=== PATIENT | male | born 1960 | race Caucasian/White ===

== ENCOUNTER → 2018-01-01 | Outpatient (CLI) | payer BC ==
--- NOTE | 2018-01-01 19:03 | Diagnostic Imaging Report ---
INDICATION: Fell six weeks ago and landed on left hand, pain between the first and second metacarpals. FINDINGS: Three views of the left hand demonstrate no fracture or dislocation. Minimal degenerative changes are present. IMPRESSION: Negative left hand. Dictated by: Dictated on workstation # [id number]
== END ==
LOC: RAD 18:31
PROVIDERS: ATTEND Nurse Practitioner Family
DX: M79.642 Pain in left hand (principal); W19.XXXA Unspecified fall, initial encounter
CPT/HCPCS: 73130

== ENCOUNTER → 2018-03-16 | Outpatient (CLI) | payer BC ==
--- NOTE | 2018-03-16 18:16 | Diagnostic Imaging Report ---
EXAM: CHEST PA/LAT (2 VIEW) INDICATION: COUGH COMPARISON: None. FINDINGS: Normal heart size and central pulmonary vascularity. Bronchial wall thickening. No focal pulmonary opacity, pleural effusion or pneumothorax. No acute osseous findings. IMPRESSION: Bronchial wall thickening suggesting small airway inflammation. Remainder negative. Dictated by: Dictated on workstation # [id number]
== END ==
LOC: RAD 16:48
PROVIDERS: ATTEND Nurse Practitioner Family
DX: J98.4 Other disorders of lung (principal); R05 Cough
CPT/HCPCS: 71046

== ENCOUNTER → 2018-05-22 | Outpatient (CLI) | payer BC | LOC: CARD 11:49 | PROVIDERS: ATTEND Nurse Practitioner Family | DX: R01.1 Cardiac murmur, unspecified (principal); I34.0 Nonrheumatic mitral (valve) insufficiency | CPT/HCPCS: 93306 ==

== ENCOUNTER 2018-07-08 07:34 | Day surgery (SDC) | payer BC ==
[2018-07-08] VITALS (20 sets, daily range): BP systolic 112–165; BP diastolic 65–100
[~2018-07-08] VITALS: Ht 170.2 cm; Wt 76.7 kg
[2018-07-08] MEDS ORDERED: NS IV 1000 ML 1,000 ML ONE (07:49)
[2018-07-08] MEDS ORDERED: LIDOCAINE 2% VISCOUS 15 ML UDC ONE (07:49)
[2018-07-08 08:12] LABS: HEMOGLOBIN 14.9 G/DL (13.3-17.7); MEAN PLATELET VOLUME 10.3 FL (7.4-10.4); RED CELL DISTRIBUTION WIDTH 14.2 % (10.0-14.5)
--- NOTE | 2018-07-08 08:16 | Diagnostic Imaging Report ---
INDICATION: Pre-heart catheterization and transesophageal echo. Time of exam: 8:05 AM Correlation is made with prior study from 03/16/2018. The heart is enlarged. Lungs are clear. No infiltrate is seen. There is no failure. No effusion or pneumothorax is identified. IMPRESSION: Cardiomegaly. Study is otherwise unremarkable. Dictated by: Dictated on workstation # [id number]
[2018-07-08 08:21] LABS: INR 0.9 (0.8-1.4); PROTHROMBIN TIME PATIENT 11.9 SEC (12.2-14.7)
[2018-07-08] MEDS ORDERED: RT-ALBUINH IH (08:27)
[2018-07-08] MEDS ORDERED: ALB0.5V INH (08:27)
[2018-07-08] MEDS ORDERED: NS IV 1000 ML 1,000 ML IV SCH (08:30)
[2018-07-08 08:31] LABS: ALANINE AMINOTRANSFERASE 39 U/L (0-55); ALBUMIN 4.4 GM/DL (3.2-4.5); ALKALINE PHOSPHATASE 56 U/L (40-136); BUN/CREATININE RATIO 22; CALCIUM 9.5 MG/DL (8.5-10.1); CARBON DIOXIDE 29 MMOL/L (21-32); CHLORIDE 101 MMOL/L (98-107); CHOLESTEROL 234 MG/DL (< 200); CREATININE SERUM 0.87 MG/DL (0.60-1.30); GFR ESTIMATED > 60; GLUCOSE 100 MG/DL (70-105); HDL CHOLESTEROL 71 MG/DL (40-60); SODIUM 139 MMOL/L (135-145); TOTAL PROTEIN 7.1 GM/DL (6.4-8.2); TRIGLYCERIDES 76 MG/DL (<150); VLDL CHOLESTEROL 15 MG/DL (5-40)
[2018-07-08] MEDS ORDERED: MIDAZOLAM 5 MG/5 ML (VERSED) VIAL ONE (08:34)
[2018-07-08] MEDS ORDERED: fentaNYL INJECTION 100 MCG/2 ML AMP ONE (08:35)
[2018-07-08] MEDS ORDERED: fentaNYL INJECTION 100 MCG/2 ML AMP IV ONE (10:45)
[2018-07-08] MEDS ORDERED: MIDAZOLAM 5 MG/5 ML (VERSED) VIAL IV ONE (10:45)
[2018-07-08] MEDS ORDERED: LIDOCAINE 2% VISCOUS 15 ML UDC PO ONE (10:45)
--- OUTSIDE RECORDS SUMMARY | 2018-07-08 10:53 | XMS REPORT | CCD ---
Author Author Anisha Whitmore MD, [facility] Address [address] [place] [address] Phone Care Team Providers Care Heel Stiffener Name Role Phone PP Unavailable CCM Unavailable Summary Purpose Interface Exchange Insurance Providers Payer name Policy type / Coverage type Covered democrat ID Effective Begin Date Effective End Date Blue Cross [facility] Blue Cross/Blue [facility] [id number] 2017 Unknown Family history Mother Diagnosis Age At Onset Alcoholism Unknown Father Diagnosis Age At Onset Asthma Unknown Son Diagnosis Age At Onset Asthma Unknown Runs in the family Diagnosis Age At Onset Cancer Unknown Daughter Diagnosis Age At Onset Asthma Unknown Social History Social History Element Codes Description Effective Dates Marital status Unknown Anamaria Caballero 08/04/2017 Number of children Unknown 4 08/04/2017 Employment Unknown 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 Unknown Has never used illegal drugs 08/04/2017 Allergies, Adverse Reactions, Alerts Substance Reaction Codes Entered Date Inactivated Date Status NO KNOWN DRUG ALLERGIES Unknown 08/04/2017 No Inactive Date Active Past Medical History Illness Codes Condition Status Onset Date Resolved Date Acute bronchitis due to other specified organisms ICD-9: 466.0 ICD-10: J20.8 Active 06/25/2018 Unknown Periapical abscess without sinus ICD-9: 522.5 ICD-10: K04.7 Active 05/07/2018 Unknown Cough ICD-9: 786.2 ICD-10: R05 Active 03/02/2018 Unknown Pneumonia, unspecified organism ICD-9: 486 ICD-10: J18.9 Active 03/02/2018 Unknown Pain in left finger(s) ICD-9: 729.5 ICD-10: M79.645 Active 01/01/2018 Unknown Pain in left hand ICD- 9: 729.5 ICD-10: M79.642 Active 01/01/2018 Unknown Other fatigue ICD-9: 780.79 ICD-10: R53.83 Active 08/04/2017 Unknown Actinic keratosis ICD- 9: 702.0 ICD-10: L57.0 Active 08/04/2017 Unknown Cardiac murmur, unspecified ICD-9: 785.2 ICD-10: R01.1 Active 08/04/2017 Unknown Other hypoglycemia ICD -9: 251.1 ICD-10: E16.1 Active 08/04/2017 Unknown Other malaise ICD-9: 780.79 ICD-10: R53.81 Active 08/04/2017 Unknown Problems Condition Codes Effective Dates Condition Status Acute bronchitis due to other specified organisms ICD-9: 466.0 ICD-10: J20.8 06/25/2018 Active Periapical abscess without sinus ICD-9: 522.5 ICD-10: K04.7 05/07/2018 Active Cough ICD-9: 786.2 ICD-10: R05 03/02/2018 Active Pneumonia, unspecified organism ICD-9: 486 ICD-10: J18.9 03/02/2018 Active Pain in left finger(s) ICD-9: 729.5 ICD-10: M79.645 01/01/2018 Active Pain in left hand ICD- 9: 729.5 ICD-10: M79.642 01/01/2018 Active Other fatigue ICD-9: 780.79 ICD-10: R53.83 08/04/2017 Active Actinic keratosis ICD- 9: 702.0 ICD-10: L57.0 08/04/2017 Active Cardiac murmur, unspecified ICD-9: 785.2 ICD-10: R01.1 08/04/2017 Active Other hypoglycemia ICD -9: 251.1 ICD-10: E16.1 08/04/2017 Active Other malaise ICD-9: 780.79 ICD-10: R53.81 08/04/2017 Active Medications Medication Codes Instructions Start Date Stop Date Status Fill Instructions ProAir HFA 90 mcg/actuation aerosol inhaler RxNorm: 823741 1-2 Puff(s) INH Q4H as needed 06/26/2018 No Stop Date Active Zithromax Z-Jomar 250 mg tablet RxNorm: 358220 1 Tablet(s) PO UD 06/25/2018 06/29/2018 Inactive cefdinir 300 mg capsule RxNorm: 275049 1 Capsule(s) PO BID 07/01/2018 Active albuterol sulfate 2.5 mg/3 mL (0.083 %) solution for nebulization RxNorm: 911244 3 Milliliter(s) INH UD 06/25/2018 No Stop Date Active 4 times a day x 3 days, then 3 times a day x 3 days, then twice a day x 3 days, then as needed ceftriaxone 500 mg solution for injection RxNorm: 9990966 Inj 06/25/2018 06/25/2018 Inactive Kenalog 40 mg/mL suspension for injection RxNorm: 4410382 Milliliter(s) Inj 06/25/2018 06/25/2018 Inactive prednisone 10 mg tablet RxNorm: 762664 Tablet(s) PO UD 2018 No Stop Date Active 60,50,40,30,20,10 clindamycin HCl 300 mg capsule RxNorm: 159045 1 Capsule(s) PO TID 05/07/2018 05/16/2018 Inactive Levaquin 500 mg tablet RxNorm: 197070 1 Tablet(s) PO daily 03/201804/09/2018 Inactive ipratropium-albuterol 0.5 mg-3 mg(2.5 mg base)/3 mL nebulization soln RxNorm: 8744051 3 Milliliter(s) INH qid prn 03/16/2018 No Stop Date Active Kenalog 40 mg/mL suspension for injection RxNorm: 8384477 Milliliter(s) Inj 03/16/2018 03/16/2018 Inactive prednisone 10 mg tablet RxNorm: 186124 Tablet(s) PO UD 201806/23/2018 Inactive 60,60,50,50,40,40,30,30,20,20,10,10 Levaquin 500 mg tablet RxNorm: 936559 1 Tablet(s) PO daily 03/22/2018 Inactive ProAir HFA 90 mcg/actuation aerosol inhaler RxNorm: 795590 1-2 Puff(s) INH Q4H as needed 03/04/2018 06/25/2018 Inactive ceftriaxone 500 mg solution for injection RxNorm: 0558398 2 Milliliter(s) Inj 03/02/2018 03/02/2018 Inactive Kenalog 40 mg/mL suspension for injection RxNorm: 9609963 1.5 Milliliter(s) Inj 03/02/2018 03/02/2018 Inactive prednisone 20 mg tablet RxNorm: 638024 1 Tablet(s) PO BID 03/0203/06/2018 Inactive start tomorrow -1 q am and 1 q noon cefdinir 300 mg capsule RxNorm: 705539 1 Capsule(s) PO BID 03/08/2018 Inactive Zithromax Z-Jomar 250 mg tablet RxNorm: 570856 1 Tablet(s) PO UD 03/02/2018 03/06/2018 Inactive ipratropium-albuterol 0.5 mg-3 mg(2.5 mg base)/3 mL nebulization soln RxNorm: 9703159 3 Milliliter(s) INH qid prn 03/02/2018 03/15/2018 Inactive naproxen 500 mg tablet RxNorm: 255108 1 Tablet(s) PO BID 201701/05/2018 Inactive doxycycline hyclate 100 mg capsule RxNorm: 4262161 1 Capsule(s) PO BID 09/09/2017 09/22/2017 Inactive doxycycline hyclate 100 mg capsule RxNorm: 7809737 1 Capsule(s) PO BID 08/11/2017 08/14/2017 Inactive doxycycline hyclate 100 mg capsule RxNorm: 5147577 1 Capsule(s) PO BID 08/04/2017 08/10/2017 Inactive ProAir HFA 90 mcg/actuation aerosol inhaler RxNorm: 8881742 1-2 Puff(s) INH Q4H as needed No Start Date 03/03/2018 Inactive prednisone 10 mg tablet RxNorm: 872372 Tablet(s) PO No Start Date 03/15/2018 Inactive 60,60,50,50,40,40,30,30,20,20,10,10 Medication Administered Medication Codes Instructions Start Date Status Kenalog 40 mg/mL suspension for injection RxNorm: 6812845 Milliliter 06/25/2018 No longer Active ceftriaxone 500 mg solution for injection RxNorm: 8154612 06/25/2018 No longer Active Kenalog 40 mg/mL suspension for injection RxNorm: 5345513 Milliliter 03/16/2018 No longer Active Kenalog 40 mg/mL suspension for injection RxNorm: 4741304 1.5Milliliter 03/02/2018 No longer Active ceftriaxone 500 mg solution for injection RxNorm: 2402353 2Milliliter 03/02/2018 No longer Active Immunizations No Immunization data Assessments Condition Codes Effective Dates Acute bronchitis due to other specified organisms ICD-10: J20.8 ICD-9: 466.0 06/25/2018 Periapical abscess without sinus ICD-10: K04.7 ICD-9: 522.5 05/07/2018 Pneumonia, unspecified organism ICD-10: J18.9 ICD-9: 486 03/16/2018 Cough ICD-10: R05 ICD-9: 786.2 03/16/2018 Pain in left hand ICD-10: M79.642 ICD-9: 729.5 01/01/2018 Pain in left finger(s) ICD-10: M79.645 ICD-9: 729.5 01/01/2018 Other fatigue ICD-10: R53.83 ICD-9: 780.79 08/25/2017 Cardiac murmur, unspecified ICD-10: R01.1 ICD-9: 785.2 08/04/2017 Other malaise ICD-10: R53.81 ICD-9: 780.79 08/04/2017 Other hypoglycemia ICD-10: E16.1 ICD-9: 251.1 08/04/2017 Actinic keratosis ICD-10: L57.0 ICD-9: 702.0 08/04/2017 Reason For Visit Reason For Visit Effective Dates Notes sinus congestion 06/25/2018 oral pain 05/07/2018 cough 03/16/2018 cough 03/02/2018 thumb and hand pain 01/01/2018 fatigue 08/25/2017 fatigue 08/04/2017 Results Observation Observation Code Item Item Code Result Date Ehrlichia Chaffeensis Antibody Igm 171634 EHRLICHIA CHAFFEENSIS IGM < 1:16 08/08/2017 Ehrlichia Chaffeensis Antibody Igg 891016 EHRLICHIA CHAFFEENSIS IGG 1:256 08/08/2017 Stryker Spotted Fever Igg/Igm 846119 [facility] SPOTTED FEVER IGM EIA . 08/08/2017 Stryker Spotted Fever Igg/Igm 734155 RMSF, IGM 0.42 index 08/08/2017 Stryker Spotted Fever Igg/Igm 149026 [facility] SPOTTED FEVER IGG EIA FLEX . 08/08/2017 Stryker Spotted Fever Igg/Igm 481532 RMSF, IGG SCREEN-FLEX Negative 08/08/2017 Tsh Ord6 TSH (3rd IS) 3.72 uIU/mL 08/05/2017 Free T4 Rvh875 FREE T4 0.98 ng/dL 08/05/2017 Lymes Disease Total Antibodies With Western Blot Reflex [id number] B. BURGDORFERI, IGG/IGM 0.176 08/05/2017 Lymes Disease Total Antibodies With Western Blot Reflex [id number] 08/05/2017 %Hba1C Yja777 % HbA1c 90574-9 5.6 % 08/04/2017 %Hba1C Dlx804 Gluc Ave 114 mg/dL 08/04/2017 Comp Metabolic Lbu367 NA 136 mEq/L 08/04/2017 Comp Metabolic Kxz029 K 4.4 mEq/L 08/04/2017 Comp Metabolic Lyz279 CL 100 mEq/L 08/04/2017 Comp Metabolic Zru247 CO2 27.0 mEq/L 08/04/2017 Comp Metabolic Bjt711 ANION GAP 13 08/04/2017 Comp Metabolic Rae805 GLUCOSE 95 mg/dL 08/04/2017 Comp Metabolic Rtt722 Creat 0.8 mg/dL 08/04/2017 Comp Metabolic Oyu219 eGFR 105 ml/min/1.73m2 08/04/2017 Comp Metabolic Wif740 BUN 28 mg/dL 08/04/2017 Comp Metabolic Kcd806 B/C Ratio 35.0 Ratio 08/04/2017 Comp Metabolic Oqp440 CALCIUM 8.7 mg/dL 08/04/2017 Comp Metabolic Kyq236 ALK PHOS 61 U/L 08/04/2017 Comp Metabolic Gzj843 AST(SGOT) 21 U/L 08/04/2017 Comp Metabolic Oyv787 ALT(SGPT) 18 U/L 08/04/2017 Comp Metabolic Xmr029 BILI T 0.7 mg/dL 08/04/2017 Comp Metabolic Ljg081 ALBUMIN 4.5 g/dL 08/04/2017 Comp Metabolic Udi309 TPRO 6.7 g/dL 08/04/2017 Comp Metabolic Svw483 GLOB 2.3 g/dL 08/04/2017 Comp Metabolic Snu114 A/G Ratio 2.0 Ratio 08/04/2017 Comp Metabolic Vsz402 Osmo 277 mOsmo 08/04/2017 Cbc With Differential Ord2 WBC 7.02 K/ul 08/04/2017 Cbc With Differential Ord2 RBC 5.12 M/ul 08/04/2017 Cbc With Differential Ord2 HGB 15.9 g/dl 08/04/2017 Cbc With Differential Ord2 HCT 46.0 % 08/04/2017 Cbc With Differential Ord2 Neut% 67.2 % 08/04/2017 Cbc With Differential Ord2 MCV 89.8 fl 08/04/2017 Cbc With Differential Ord2 Lymph% 21.2 % 08/04/2017 Cbc With Differential Ord2 MCH 31.1 pg 08/04/2017 Cbc With Differential Ord2 Sullivan% 8.7 % 08/04/2017 Cbc With Differential Ord2 MCHC 34.6 pg 08/04/2017 Cbc With Differential Ord2 Eos% 2.6 % 08/04/2017 Cbc With Differential Ord2 PLT 231 K/ul 08/04/2017 Cbc With Differential Ord2 Baso% 0.3 % 08/04/2017 Cbc With Differential Ord2 RDW 13.3 % 08/04/2017 Cbc With Differential Ord2 Neut ABS# 4.72 K/ul 08/04/2017 Cbc With Differential Ord2 Lymph ABS# 1.49 K/ul 08/04/2017 Cbc With Differential Ord2 Sullivan ABS# 0.6 K/ul 08/04/2017 Cbc With Differential Ord2 Eos ABS# 0.2 K/ul 08/04/2017 Cbc With Differential Ord2 Baso ABS# 0.0 K/ul 08/04/2017 Lipid Ord30 CHOL 209 mg/dL 08/04/2017 Lipid Ord30 HDL 56.0 mg/dl 08/04/2017 Lipid Ord30 TRIG 98 mg/dL 08/04/2017 Lipid Ord30 LDL 133 mg/dL 08/04/2017 Lipid Ord30 C/HDL 3.7 Ratio 08/04/2017 Review of Systems System Result Effective Dates Constitutional recent illness 06/25/2018 Constitutional chills 06/25/2018 Constitutional fever 06/25/2018 Eyes No eye erythema 06/25/2018 Ears/Nose/Throat/Neck nasal allergies Ears/Nose/Throat/Neck nasal discharge Ears/Nose/Throat/Neck postnasal drip Ears/Nose/Throat/Neck sinus congestion Cardiovascular No chest pain/pressure Respiratory productive sputum 06/25/2018 Respiratory cough 06/25/2018 Respiratory wheezing 06/25/2018 Gastrointestinal No abdominal pain 2018 Musculoskeletal No joint complaint 2018 Dermatologic No rash 06/25/2018 Neurologic No alteration of consciousness 06/25/2018 Neurologic No mental status change 2018 Constitutional No recent illness 2018 Constitutional No chills 05/07/2018 Constitutional No diaphoresis 05/07/2018 Constitutional No fever 05/07/2018 Eyes No eye erythema 05/07/2018 Ears/Nose/Throat/Neck No nasal discharge 05/07/2018 Cardiovascular No chest pain/pressure 08/2018 Cardiovascular No dyspnea 05/07/2018 Respiratory No cough 05/07/2018 Ears/Nose/Throat/Neck dental pain 2018 Gastrointestinal No abdominal pain 2018 Neurologic No alteration of consciousness 05/07/2018 Neurologic No mental status change 2018 Constitutional recent illness 03/16/2018 Constitutional No night sweats 2018 Constitutional No fever 03/16/2018 Eyes No eye discharge 03/16/2018 Eyes No eye erythema 03/16/2018 Cardiovascular No chest pain/pressure Cardiovascular No edema 03/16/2018 Respiratory productive sputum 03/16/2018 Respiratory chest congestion 03/16/2018 Respiratory cough 03/16/2018 Gastrointestinal No abdominal pain 2018 Gastrointestinal No constipation 2018 Gastrointestinal No diarrhea 03/16/2018 Gastrointestinal No vomiting 03/16/2018 Musculoskeletal No joint complaint 2018 Dermatologic No rash 03/16/2018 Neurologic No alteration of consciousness 03/16/2018 Constitutional fatigue 03/16/2018 Constitutional No chills 03/16/2018 Ears/Nose/Throat/Neck nasal discharge Ears/Nose/Throat/Neck nasal allergies Ears/Nose/Throat/Neck postnasal drip Ears/Nose/Throat/Neck No sinus congestion 03/16/2018 Respiratory No dyspnea 03/16/2018 Respiratory dyspnea on exertion 2018 Neurologic No mental status change 2018 Constitutional recent illness 03/02/2018 Constitutional anorexia 03/02/2018 Constitutional No night sweats 2017 Constitutional diaphoresis 03/02/2018 Constitutional fatigue 03/02/2018 Constitutional No fever 03/02/2018 Constitutional insomnia 03/02/2018 Constitutional No malaise 03/02/2018 Constitutional No weight loss 03/02/2018 Constitutional No weight gain 03/02/2018 Eyes No eye erythema 03/02/2018 Eyes No eye discharge 03/02/2018 Ears/Nose/Throat/Neck No dizziness 2017 Ears/Nose/Throat/Neck headache 2017 Ears/Nose/Throat/Neck nasal discharge Ears/Nose/Throat/Neck No otalgia 2017 Ears/Nose/Throat/Neck sore throat 2017 Cardiovascular No chest pain/pressure Cardiovascular No edema 03/02/2018 Respiratory productive sputum 03/02/2018 Respiratory chest congestion 03/02/2018 Respiratory cough 03/02/2018 Gastrointestinal No vomiting 03/02/2018 Gastrointestinal No abdominal pain 2017 Gastrointestinal No constipation 2017 Gastrointestinal No diarrhea 03/02/2018 Genitourinary/Nephrology No dysuria 03/02 Musculoskeletal No joint complaint 2017 Dermatologic No rash 03/02/2018 Neurologic No alteration of consciousness 03/02/2018 Constitutional No recent illness 2017 Constitutional No chills 01/01/2018 Constitutional No fever 01/01/2018 Eyes No eye erythema 01/01/2018 Ears/Nose/Throat/Neck No nasal discharge 01/01/2018 Cardiovascular No chest pain/pressure 03/2017 Cardiovascular No dyspnea 01/01/2018 Respiratory No cough 01/01/2018 Respiratory No dyspnea 01/01/2018 Musculoskeletal joint complaint 2017 Neurologic No alteration of consciousness 01/01/2018 Neurologic No mental status change 2017 Constitutional recent illness 08/25/2017 Constitutional No chills 08/25/2017 Constitutional No diaphoresis 08/25/2017 Constitutional No fever 08/25/2017 Eyes No eye erythema 08/25/2017 Ears/Nose/Throat/Neck No nasal discharge 08/25/2017 Cardiovascular No chest pain/pressure Cardiovascular No dyspnea 08/25/2017 Respiratory No cough 08/25/2017 Respiratory No chest congestion 2017 Gastrointestinal No abdominal pain 2017 Musculoskeletal No joint complaint 2017 Dermatologic No rash 08/25/2017 Neurologic No alteration of consciousness 08/25/2017 Neurologic No mental status change 2017 Constitutional No recent illness 2017 Constitutional No chills 08/04/2017 Constitutional No diaphoresis 08/04/2017 Constitutional No fever 08/04/2017 Constitutional fatigue 08/04/2017 Constitutional malaise 08/04/2017 Eyes No eye erythema 08/04/2017 Ears/Nose/Throat/Neck No nasal discharge 08/04/2017 Ears/Nose/Throat/Neck No nasal allergies 08/04/2017 Cardiovascular No chest pain/pressure 06/2017 Cardiovascular No dyspnea 08/04/2017 Respiratory No cough 08/04/2017 Respiratory No chest congestion 2017 Gastrointestinal No abdominal pain 2017 Gastrointestinal No constipation 2017 Gastrointestinal No diarrhea 08/04/2017 Gastrointestinal No vomiting 08/04/2017 Gastrointestinal No nausea 08/04/2017 Gastrointestinal No melena 08/04/2017 Gastrointestinal No hematochezia 2017 Musculoskeletal No joint complaint 2017 Dermatologic actinic keratosis 2017 Neurologic No alteration of consciousness 08/04/2017 Neurologic No mental status change 2017 Physical Exam Exam Name System Name Item Name Status Result Effective Dates Notes Full Exam - General 1994 Constitutional general appearance Overall: well developed 06/25/2018 None Full Exam - General 1994 Constitutional general appearance Overall: in no acute distress 06/25/2018 None Full Exam - General 1994 Constitutional general appearance Overall: well nourished 06/25/2018 None Full Exam - General 1994 Eyes conjunctiva /eyelids Overall: conjunctiva clear 06/25/2018 None Full Exam - General 1994 Eyes conjunctiva /eyelids Overall: eyelids normal 06/25/2018 None Full Exam - General 1994 Ears/Nose/Throat otoscopic exam Overall: external auditory canals clear 06/25/2018 None Full Exam - General 1994 Ears/Nose/Throat otoscopic exam Tympanic membrane: air- fluid level 06/25/2018 None Full Exam - General 1994 Ears/Nose/Throat lips/teeth/gingiva Overall: benign lips 06/25/2018 None Full Exam - General 1994 Ears/Nose/Throat oral cavity/pharynx/larynx Overall: oral mucosa clear 06/25/2018 None Full Exam - General 1995 Ears/Nose/Throat oral cavity/pharynx/larynx Posterior Pharynx: clear post nasal drainage 06/25/2018 None Full Exam - General 1994 Respiratory auscultation Diffuse: diminished 06/25/2018 None Full Exam - General 1994 Respiratory auscultation Lower lung field: expiratory wheezes 06/25/2018 None Full Exam - General 1994 Respiratory respiratory effort/rhythm Overall: no retractions 06/25/2018 None Full Exam - General 1994 Respiratory respiratory effort/rhythm Overall: normal rate 06/25/2018 None Full Exam - General 1994 Cardiovascular auscultation of heart Overall: regular rate 06/25/2018 None Full Exam - General 1994 Lymphatic neck nodes Overall: anterior cervical chain benign 06/25/2018 None Full Exam - General 1994 Lymphatic neck nodes Overall: posterior cervical chain benign 06/25/2018 None Full Exam - General 1994 Integument inspection of skin Overall: few scattered moles, no gross abnormalities 06/25/2018 None Full Exam - General 1994 Neurologic cranial nerves Overall: crainial nerves 2 - 12 grossly intact 06/25/2018 None Full Exam - General 1994 Psychiatric orientation/consciousness Overall: oriented to person, place and time 06/25/2018 None Full Exam - General 1994 Psychiatric mood and affect Overall: normal mood and affect 06/25/2018 None Full Exam - General 1994 Cardiovascular auscultation of heart Murmur: previously known murmur unchanged 06/25/2018 None Full Exam - General 1994 Constitutional general appearance Overall: well developed 05/07/2018 None Full Exam - General 1994 Constitutional general appearance Overall: in no acute distress 05/07/2018 None Full Exam - General 1994 Constitutional general appearance Overall: well nourished 05/07/2018 None Full Exam - General 1994 Eyes conjunctiva /eyelids Overall: eyelids normal 05/07/2018 None Full Exam - General 1994 Eyes conjunctiva /eyelids Overall: cornea clear 05/07/2018 None Full Exam - General 1994 Eyes conjunctiva /eyelids Overall: conjunctiva clear 05/07/2018 None Full Exam - General 1994 Ears/Nose/Throat lips/teeth/gingiva Overall: benign lips 05/07/2018 None Full Exam - General 1994 Ears/Nose/Throat lips/teeth/gingiva Teeth: dental caries 05/07/2018 None Full Exam - General 1994 Ears/Nose/Throat oral cavity/pharynx/larynx Overall: oral mucosa clear 05/07/2018 None Full Exam - General 1995 Respiratory respiratory effort/rhythm Overall: normal rate 05/07/2018 None Full Exam - General 1995 Respiratory respiratory effort/rhythm Overall: no retractions 05/07/2018 None Full Exam - General 1995 Respiratory auscultation Overall: breath sounds clear bilaterally 05/07/2018 None Full Exam - General 1995 Cardiovascular auscultation of heart Overall: regular rate 05/07/2018 None Full Exam - General 1994 Cardiovascular auscultation of heart Systolic murmur: holosystolic 05/07/2018 None Full Exam - General 1994 Cardiovascular auscultation of heart Systolic murmur grade: III/ 05/07/2018 None Full Exam - General 1994 Musculoskeletal head and neck Overall: head atraumatic 05/07/2018 None Full Exam - General 1994 Musculoskeletal gait and station Overall: normal station 05/07/2018 None Full Exam - General 1994 Musculoskeletal gait and station Overall: normal gait 05/07/2018 None Full Exam - General 1994 Neurologic cranial nerves Overall: crainial nerves 2 - 12 grossly intact 05/07/2018 None Full Exam - General 1994 Psychiatric orientation/consciousness Overall: oriented to person, place and time 05/07/2018 None Full Exam - General 1994 Psychiatric mood and affect Overall: normal mood and affect 05/07/2018 None Full Exam - General 1994 Psychiatric appearance Overall: well-groomed, good eye contact 05/07/2018 None Full Exam - General 1994 Constitutional general appearance Overall: well developed 03/16/2018 None Full Exam - General 1994 Constitutional general appearance Overall: in no acute distress 03/16/2018 None Full Exam - General 1994 Constitutional general appearance Overall: well nourished 03/16/2018 None Full Exam - General 1994 Eyes conjunctiva /eyelids Overall: conjunctiva clear 03/16/2018 None Full Exam - General 1994 Eyes conjunctiva /eyelids Overall: cornea clear 03/16/2018 None Full Exam - General 1994 Eyes conjunctiva /eyelids Overall: eyelids normal 03/16/2018 None Full Exam - General 1994 Eyes pupils and irises Overall: pupils equal, round, reactive to light and accomodation 03/16/2018 None Full Exam - General 1994 Ears/Nose/Throat otoscopic exam Overall: external auditory canals clear 03/16/2018 None Full Exam - General 1994 Ears/Nose/Throat otoscopic exam Overall: tympanic membranes clear 03/16/2018 None Full Exam - General 1995 Ears/Nose/Throat lips/teeth/gingiva Overall: benign lips 03/16/2018 None Full Exam - General 1995 Ears/Nose/Throat oral cavity/pharynx/larynx Overall: oral mucosa clear 03/16/2018 None Full Exam - General 1995 Ears/Nose/Throat oral cavity/pharynx/larynx Overall: oropharyngeal mucosa clear 03/16/2018 None Full Exam - Cardiology Respiratory auscultation Diffuse: expiratory wheezes 03/16/2018 None Full Exam - General 1994 Respiratory respiratory effort/rhythm Overall: no retractions 03/16/2018 None Full Exam - General 1994 Respiratory respiratory effort/rhythm Overall: normal rate 03/16/2018 None Full Exam - General 1994 Cardiovascular auscultation of heart Overall: regular rate 03/16/2018 None Full Exam - General 1994 Cardiovascular auscultation of heart Overall: normal heart sounds 03/16/2018 None Full Exam - General 1994 Cardiovascular auscultation of heart Systolic murmur: holosystolic 03/16/2018 None Full Exam - General 1994 Cardiovascular auscultation of heart Systolic murmur grade: III/ 03/16/2018 None Full Exam - General 1994 Musculoskeletal gait and station Overall: normal gait 03/16/2018 None Full Exam - General 1994 Musculoskeletal gait and station Overall: normal station 03/16/2018 None Full Exam - General 1994 Musculoskeletal head and neck Overall: head atraumatic 03/16/2018 None Full Exam - General 1994 Neurologic cranial nerves Overall: crainial nerves 2 - 12 grossly intact 03/16/2018 None Full Exam - General 1994 Psychiatric orientation/consciousness Overall: oriented to person, place and time 03/16/2018 None Full Exam - General 1994 Psychiatric mood and affect Overall: normal mood and affect 03/16/2018 None Full Exam - General 1994 Psychiatric appearance Overall: well-groomed, good eye contact 03/16/2018 None Full Exam - General 1994 Constitutional general appearance Overall: well developed 03/02/2018 None Full Exam - General 1994 Constitutional general appearance Overall: in no acute distress 03/02/2018 None Full Exam - General 1994 Constitutional general appearance Overall: well nourished 03/02/2018 None Full Exam - General 1994 Eyes conjunctiva /eyelids Overall: conjunctiva clear 03/02/2018 None Full Exam - General 1994 Eyes conjunctiva /eyelids Overall: cornea clear 03/02/2018 None Full Exam - General 1994 Eyes conjunctiva /eyelids Overall: eyelids normal 03/02/2018 None Full Exam - General 1994 Eyes pupils and irises Overall: pupils equal, round, reactive to light and accomodation 03/02/2018 None Full Exam - General 1994 Ears/Nose/Throat otoscopic exam Overall: external auditory canals clear 03/02/2018 None Full Exam - General 1994 Ears/Nose/Throat otoscopic exam Overall: tympanic membranes clear 03/02/2018 None Full Exam - General 1994 Ears/Nose/Throat lips/teeth/gingiva Overall: benign lips 03/02/2018 None Full Exam - General 1994 Ears/Nose/Throat oral cavity/pharynx/larynx Overall: oral mucosa clear 03/02/2018 None Full Exam - General 1994 Ears/Nose/Throat oral cavity/pharynx/larynx Overall: oropharyngeal mucosa clear 03/02/2018 None Full Exam - General 1994 Respiratory respiratory effort/rhythm Overall: no retractions 03/02/2018 None Full Exam - General 1994 Respiratory respiratory effort/rhythm Overall: normal rate 03/02/2018 None Full Exam - General 1994 Cardiovascular auscultation of heart Overall: regular rate 03/02/2018 None Full Exam - General 1994 Cardiovascular auscultation of heart Overall: normal heart sounds 03/02/2018 None Full Exam - General 1994 Cardiovascular auscultation of heart Systolic murmur: holosystolic 03/02/2018 None Full Exam - General 1994 Cardiovascular auscultation of heart Systolic murmur grade: III/ 03/02/2018 None Full Exam - General 1994 Abdomen abdominal exam Overall: no tenderness 03/02/2018 None Full Exam - General 1994 Abdomen abdominal exam Overall: normal bowel sounds 03/02/2018 None Full Exam - General 1994 Musculoskeletal gait and station Overall: normal gait 03/02/2018 None Full Exam - General 1994 Musculoskeletal gait and station Overall: normal station 03/02/2018 None Full Exam - General 1994 Musculoskeletal head and neck Overall: head atraumatic 03/02/2018 None Full Exam - General 1994 Neurologic cranial nerves Overall: crainial nerves 2 - 12 grossly intact 03/02/2018 None Full Exam - General 1994 Psychiatric orientation/consciousness Overall: oriented to person, place and time 03/02/2018 None Full Exam - General 1994 Psychiatric mood and affect Overall: normal mood and affect 03/02/2018 None Full Exam - General 1994 Psychiatric appearance Overall: well-groomed, good eye contact 03/02/2018 None Full Exam - Cardiology Respiratory auscultation Diffuse: rhonchi 03/02/2018 None Full Exam - Cardiology Respiratory auscultation Diffuse: expiratory wheezes 03/02/2018 None Full Exam - Orthopedics Constitutional general appearance Overall: well nourished 01/01/2018 None Full Exam - Orthopedics Constitutional general appearance Overall: well developed 01/01/2018 None Full Exam - Orthopedics Constitutional general appearance Overall: in no acute distress 01/01/2018 None Full Exam - Orthopedics Eyes conjunctiva/ eyelids Overall: conjunctiva clear 01/01/2018 None Full Exam - Orthopedics Eyes conjunctiva/ eyelids Overall: eyelids normal 01/01/2018 None Full Exam - Orthopedics Ears/Nose/Throat lips/teeth/gingiva Overall: benign lips 01/01/2018 None Full Exam - Orthopedics Ears/Nose/Throat oral cavity/pharynx/larynx Overall: oral mucosa clear 01/01/2018 None Full Exam - Orthopedics Respiratory respiratory effort/rhythm Overall: no retractions 01/01/2018 None Full Exam - Orthopedics Respiratory respiratory effort/rhythm Overall: normal rate 01/01/2018 None Full Exam - Orthopedics Psychiatric orientation/consciousness Overall: oriented to person, place and time 01/01/2018 None Full Exam - Orthopedics Psychiatric mood and affect Overall: normal mood and affect 01/01/2018 None Full Exam - Orthopedics Psychiatric appearance Overall: well-groomed, good eye contact 01/01/2018 None Full Exam - Orthopedics MS: left upper extremity insp & palp - LUE Thumb: normal appearance 01/01/2018 None Full Exam - Orthopedics MS: left upper extremity insp & palp - LUE Thumb: tenderness 01/01/2018 None Full Exam - Orthopedics MS: left upper extremity range of motion - LUE Thumb: pain with flexion at the MCP joint 01/01/2018 None Full Exam - Orthopedics MS: left upper extremity range of motion - LUE Thumb: pain with extension at the MCP joint 01/01/2018 None Full Exam - General 1994 Constitutional general appearance Overall: well developed 08/25/2017 None Full Exam - General 1994 Constitutional general appearance Overall: in no acute distress 08/25/2017 None Full Exam - General 1994 Constitutional general appearance Overall: well nourished 08/25/2017 None Full Exam - General 1994 Eyes conjunctiva /eyelids Overall: conjunctiva clear 08/25/2017 None Full Exam - General 1994 Eyes conjunctiva /eyelids Overall: cornea clear 08/25/2017 None Full Exam - General 1994 Eyes conjunctiva /eyelids Overall: eyelids normal 08/25/2017 None Full Exam - General 1994 Ears/Nose/Throat oral cavity/pharynx/larynx Overall: oral mucosa clear 08/25/2017 None Full Exam - General 1994 Ears/Nose/Throat lips/teeth/gingiva Overall: benign lips 08/25/2017 None Full Exam - General 1994 Respiratory auscultation Overall: breath sounds clear bilaterally 08/25/2017 None Full Exam - General 1994 Respiratory respiratory effort/rhythm Overall: normal rate 08/25/2017 None Full Exam - General 1994 Respiratory respiratory effort/rhythm Overall: no retractions 08/25/2017 None Full Exam - General 1994 Cardiovascular auscultation of heart Overall: regular rate 08/25/2017 None Full Exam - General 1994 Cardiovascular auscultation of heart Overall: normal heart sounds 08/25/2017 None Full Exam - General 1994 Cardiovascular auscultation of heart Systolic murmur: holosystolic 08/25/2017 None Full Exam - General 1994 Cardiovascular auscultation of heart Systolic murmur grade: III/ 08/25/2017 None Full Exam - General 1994 Musculoskeletal head and neck Overall: head atraumatic 08/25/2017 None Full Exam - General 1994 Musculoskeletal gait and station Overall: normal station 08/25/2017 None Full Exam - General 1994 Musculoskeletal gait and station Overall: normal gait 08/25/2017 None Full Exam - General 1994 Neurologic cranial nerves Overall: crainial nerves 2 - 12 grossly intact 08/25/2017 None Full Exam - General 1994 Psychiatric orientation/consciousness Overall: oriented to person, place and time 08/25/2017 None Full Exam - General 1994 Psychiatric mood and affect Overall: normal mood and affect 08/25/2017 None Full Exam - General 1994 Constitutional general appearance Overall: well developed 08/04/2017 None Full Exam - General 1994 Constitutional general appearance Overall: in no acute distress 08/04/2017 None Full Exam - General 1994 Constitutional general appearance Overall: well nourished 08/04/2017 None Full Exam - General 1994 Eyes conjunctiva /eyelids Overall: conjunctiva clear 08/04/2017 None Full Exam - General 1994 Eyes conjunctiva /eyelids Overall: cornea clear 08/04/2017 None Full Exam - General 1994 Eyes conjunctiva /eyelids Overall: eyelids normal 08/04/2017 None Full Exam - General 1994 Eyes pupils and irises Overall: pupils equal, round, reactive to light and accomodation 08/04/2017 None Full Exam - General 1994 Ears/Nose/Throat otoscopic exam Overall: tympanic membranes clear 08/04/2017 None Full Exam - General 1994 Ears/Nose/Throat otoscopic exam Overall: external auditory canals clear 08/04/2017 None Full Exam - General 1994 Ears/Nose/Throat lips/teeth/gingiva Overall: benign lips 08/04/2017 None Full Exam - General 1994 Ears/Nose/Throat oral cavity/pharynx/larynx Overall: oral mucosa clear 08/04/2017 None Full Exam - General 1994 Ears/Nose/Throat oral cavity/pharynx/larynx Overall: oropharyngeal mucosa clear 08/04/2017 None Full Exam - General 1994 Respiratory respiratory effort/rhythm Overall: no retractions 08/04/2017 None Full Exam - General 1994 Respiratory respiratory effort/rhythm Overall: normal rate 08/04/2017 None Full Exam - General 1994 Respiratory auscultation Overall: breath sounds clear bilaterally 08/04/2017 None Full Exam - General 1994 Cardiovascular auscultation of heart Overall: regular rate 08/04/2017 None Full Exam - General 1994 Cardiovascular auscultation of heart Overall: normal heart sounds 08/04/2017 None Full Exam - General 1994 Cardiovascular auscultation of heart Systolic murmur: holosystolic 08/04/2017 None Full Exam - General 1994 Cardiovascular auscultation of heart Systolic murmur grade: III/ 08/04/2017 None Full Exam - General 1994 Abdomen abdominal exam Overall: normal bowel sounds 08/04/2017 None Full Exam - General 1994 Abdomen abdominal exam Overall: no tenderness 08/04/2017 None Full Exam - General 1994 Musculoskeletal head and neck Overall: head atraumatic 08/04/2017 None Full Exam - General 1994 Musculoskeletal gait and station Overall: normal gait 08/04/2017 None Full Exam - General 1994 Musculoskeletal gait and station Overall: normal station 08/04/2017 None Full Exam - General 1994 Integument inspection of skin Location: face 08/04/2017 right cheek - [place] Full Exam - General 1994 Neurologic cranial nerves Overall: crainial nerves 2 - 12 grossly intact 08/04/2017 None Full Exam - General 1994 Psychiatric orientation/consciousness Overall: oriented to person, place and time 08/04/2017 None Full Exam - General 1994 Psychiatric mood and affect Overall: normal mood and affect 08/04/2017 None Full Exam - General 1994 Psychiatric appearance Overall: well-groomed, good eye contact 08/04/2017 None Procedures Procedure Codes Date TRIAMCINOLONE ACET INJ NOS CPT-4: J3301 06/25/2018 ROCEPHIN, PER 250 MG CPT-4: J0696 06/25/2018 TRIAMCINOLONE ACET INJ NOS CPT-4: J3301 03/16/2018 TRIAMCINOLONE ACET INJ NOS CPT-4: J3301 03/02/2018 ROCEPHIN, PER 250 MG CPT-4: J0696 03/02/2018 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 CPT-4: 03127 08/04/2017 Vital Signs Date Vital 06/25/2018 Blood Pressure 1: 134/60 Code : 8480-6 BMI: 26.6 Code : 21793-7 Heart Rate 1 : 80 bpm Height: 5'7" SpO2: 95% Temperature: 37.2 (C) / 99.0 (F) Weight: 170 lbs 05/07/2018 Blood Pressure 1: 144/76 Code : 8480-6 BMI: 26.9 Code : 77866-4 Heart Rate 1 : 77 bpm Height: 5'7" SpO2: 98% Weight: 172 lbs 03/16/2018 Blood Pressure 1: 122/68 Code : 8480-6 BMI: 26.6 Code : 33547-4 Heart Rate 1 : 88 bpm Height: 5'7" SpO2: 96% Weight: 170 lbs 03/02/2018 Blood Pressure 1: 140/80 Code : 8480-6 BMI: 26.5 Code : 25426-7 Heart Rate 1 : 87 bpm Height: 5'7" SpO2: 95% Temperature: 36.7 (C) / 98.1 (F) Weight: 169 lbs 01/01/2018 Blood Pressure 1: 134/66 Code : 8480-6 BMI: 26.8 Code : 32571-7 Heart Rate 1 : 65 bpm Height: 5'7" SpO2: 99% Weight: 171 lbs 08/25/2017 Blood Pressure 1: 136/72 Code : 8480-6 BMI: 27.4 Code : 76485-8 Heart Rate 1 : 70 bpm Height: 5'7" SpO2: 96% Weight: 175 lbs 08/04/2017 Blood Pressure 1: 130/78 Code : 8480-6 BMI: 27.6 Code : 77332-2 Heart Rate 1 : 65 bpm Height: 5'7" SpO2: 97% Weight: 176 lbs Functional Status No Functional Status data History of Present Illness Symptom Name Status Result Effective Date Notes Location maxillary sinuses 06/25/2018 None Quality acute 2018 None Quality acute 2018 None Location on the right 05/07/2018 None Quality aching 2018 None Quality constant 08/2018 None Quality sharp 2018 None Onset and Resolution sudden in onset 05/07/2018 None Onset of Symptom 1 weeks ago 05/07/2018 None Frequency of Episodes daily 05/07/2018 None Quality acute 2018 None Quality intermittent 03/16/2018 None Quality productive None Onset and Resolution ongoing 03/16/2018 None Onset of Symptom 3 weeks ago 03/16/2018 None Limitation on Activities moderately limits activities 03/16/2018 None Frequency of Episodes increasing 03/16/2018 None Triggers no known associated factors 03/16/2018 None Alleviating Factors inhaled medications 03/16/2018 None Pertinent Findings Denies chills 03/16/2018 None Pertinent Findings dyspnea 03/16/2018 None Pertinent Findings Denies fever 03/16/2018 None Pertinent Findings Denies nasal congestion 03/16/2018 None Pertinent Findings Denies post nasal drip 03/16/2018 None Pertinent Findings sputum production 03/16/2018 (green) Quality constant None Onset and Resolution ongoing 03/16/2018 None Quality acute 2017 None Quality intermittent 03/02/2018 None Onset and Resolution ongoing 03/02/2018 None Onset of Symptom 3 weeks ago 03/02/2018 None Quality productive None Pertinent Findings sputum production 03/02/2018 (green) Pertinent Findings Denies chills 03/02/2018 None Pertinent Findings Denies fever 03/02/2018 None Pertinent Findings dyspnea 03/02/2018 None Pertinent Findings Denies nasal congestion 03/02/2018 None Pertinent Findings Denies post nasal drip 03/02/2018 None Limitation on Activities moderately limits activities 03/02/2018 None Frequency of Episodes increasing 03/02/2018 None Triggers no known associated factors 03/02/2018 None Alleviating Factors inhaled medications 03/02/2018 None thumb and hand pain Alleviating Factors finger flexion 01/01/2018 None thumb and hand pain Exacerbating Factors activity 01/01/2018 None thumb and hand pain Location around the right thumbnail 01/01/2018 None thumb and hand pain Onset of Symptom 1 months ago 01/01/2018 None thumb and hand pain Pertinent Findings pain with movement 01/01/2018 None thumb and hand pain Pertinent Findings stiffness 01/01/2018 None fatigue Limitation on Activities does not limit activities 08/25/2017 None fatigue Quality improving 08/25/2017 None fatigue Pertinent Findings Denies cough 08/25/2017 None fatigue Limitation on Activities moderately limits activities 08/04/2017 None fatigue Onset of Symptom 3. months ago 08/04/2017 None fatigue Frequency of Episodes daily 08/04/2017 None Advance Directives No Advance Directive data Encounters Encounter Performer Location Codes Date [id number] EST. PATIENT, LEVEL III Diagnosis: Acute bronchitis due to other specified organisms[ICD10: J20.8] Anisha Ortega MD, [facility] CPT-4: 32522 06/25/2018 09097 EST. PATIENT, LEVEL IV Diagnosis: Periapical abscess without sinus[ICD10: K04.7] Anisha Ortega MD, [facility] CPT-4: 75143 05/07/2018 30448 EST. PATIENT, LEVEL IV Diagnosis: Cough[ICD10: R05] Diagnosis: Pneumonia, unspecified organism[ICD10: J18.9] Anisha Ortega MD, [facility] CPT-4: 19822 03/16/2018 ([id number]) 12671 EST. PATIENT, LEVEL III Diagnosis: Cough[ICD10: R05] Diagnosis: Pneumonia, unspecified organism[ICD10: J18.9] Reta Ortega MD, [facility] CPT-4: 40175 03/02/2018 12292 EST. PATIENT, LEVEL III Diagnosis: Pain in left finger(s)[ICD10: M79.645] Diagnosis: Pain in left hand[ICD10: M79.642] Anisha Ortega MD, [facility] CPT -4: 23365 01/01/2018 15911 EST. PATIENT, LEVEL III Diagnosis: Other fatigue[ICD10: R53.83] [facility] CPT-4 : 81405 08/25/2017 OFFICE VISIT, NEW - LEVEL 3 Diagnosis: Other malaise[ICD10: R53.81] Diagnosis: Other fatigue[ICD10: R53.83] Diagnosis: Other hypoglycemia[ICD10: E16.1] Diagnosis: Actinic keratosis[ICD10: L57.0] Diagnosis: Cardiac murmur, unspecified[ICD10: R01.1] [facility] CPT-4: 06679 08/04/2017 Plan of Care Planned Activity Notes Codes Status Date Visit Plan: Bronchitis - acute case of bronchitis identified. Pt has been given antibiotics, breathing treatments as appropriate, and pt has been instructed to call if symptoms are not improved, or if symptoms acutely worsen. 06/25/2018 Appointment: Anisha Whitmore WPtel: [id number] (30 min) Complex 06/25/2018 Patient Education: Patient Medication Summary Completed 06/25/2018 Visit Plan: Dental abscess - will start on abx - pt is to follow up with dentist ROMARIO. Pt is to notify clinic if symptoms do not improve, if they worsen, or with any changes, questions, or concerns. 05/07/2018 Appointment: Anisha Whitmore WPtel: [phone] (30 min) Complex 05/07/2018 Patient Education: Patient Medication Summary Completed 05/07/2018 Appointment: Anisha Whitmore WPtel: [address] [place], [place] [id number] (15 min) Moderate 03/23/2018 Visit Plan: Pneumonia - Pt has been diagnosed with pneumonia by physical exam. A chest xray has been ordered as have antibiotics. The pt is aware of the diagnosis and the need for acute treatment of this illness. 03/16/2018 Visit Plan: Pneumonia - Pt has been diagnosed with pneumonia by physical exam. A chest xray has been ordered as have antibiotics. The pt is aware of the diagnosis and the need for acute treatment of this illness. 03/16/2018 Appointment: Anisha Whitmore WPtel: [phone] [phone] [place] (15 min) Moderate 03/16/2018 Patient Education: Patient Medication Summary Completed 03/16/2018 Care Plan: CHEST X-RAY 2VW FRONTAL&LATL LOINC : 24842-2 Pending 03/16/2018 Visit Plan: Pneumonia - Pt has been diagnosed with pneumonia by physical exam. A chest xray has been ordered as have antibiotics. The pt is aware of the diagnosis and the need for acute treatment of this illness. 03/02/2018 Appointment: Reta Gonzalez WPtel: [address] [phone] [place] (30 min) Complex 03/02/2018 Patient Education: Patient Medication Summary Completed 03/02/2018 Care Plan: CHEST X-RAY 2VW FRONTAL&LATL LOINC : 49658-5 Pending 03/02/2018 Appointment: Anisha Whitmore WPtel: [phone] [place] (15 min) Moderate 02/19/2018 Visit Plan: Left hand/thumb pain - The pt is to use prn antiinflammatories to manage acute pain. The patient is to call the office if the pain is worsening or does not improve. 01/01/2018 Appointment: Anisha Whitmore WPtel: [phone] [phone] [place] (15 min) Moderate 01/01/2018 Patient Education: Patient Medication Summary Completed 01/01/2018 Care Plan: X-RAY EXAM OF HAND LOINC : 30638-4 Pending 01/01/2018 Visit Plan: Fatigue, malaise, joint complaints - improved since finishing doxy - will have pt monitor symptoms and notify clinic if symptoms return, or with any changes, questions, or concerns. 08/25/2017 Appointment: Anisha Whitmore WPtel: [phone] [place] (15 min) Moderate 08/25/2017 Patient Education: Patient Medication Summary Completed 08/25/2017 Appointment: Anisha Whitmore WPtel: [phone] (30 min) Complex 08/22/2017 Visit Plan: Fatigue, Malaise, tick bite - will order tick panel and check labs - will send RX - pt denies snoring or apnea - pt states that he does have a history of lyme disease - pt is to notify clinic if symptoms do not improve, if they wrosen, or with any changes, questions, or concerns [place] - cryotherapy to irritated lesion - pt tolerate procedure well. Murmur - will order ECHO for reassessment - will refer to cardiology if indicated 08/04/2017 Appointment: Anisha Whitmore WPtel: [address] [place], [place] [phone] New Patient 08/04/2017 Patient Education: Patient Medication Summary Completed 08/04/2017 Appointment: Anisha Whitmore WPtel: [address] [place], [place] [phone] New Patient 07/18/2017 Instructions Comment . Fatigue, malaise, joint complaints - improved since finishing doxy - will have pt monitor symptoms and notify clinic if symptoms return, or with any changes, questions, or concerns. CONTINUE [facility] [employer] [facility]EDFIN[facility] ROCEPHIN AND KENLAOG INJECTIONS TODAY CHEST XRAY MUCINEX Q 12 HOURS FOLLOW UP IN 10 DAYS-SOONER IF NOT BETTER AND WE WILL GET AN ECHOCARDIOGRAM SCHEDULED . Pneumonia - Pt has been diagnosed with pneumonia by physical exam. A chest xray has been ordered as have antibiotics. The pt is aware of the diagnosis and the need for acute treatment of this illness. . Dental abscess - will start on abx - pt is to follow up with dentist ROMARIO. Pt is to notify clinic if symptoms do not improve, if they worsen, or with any changes, questions, or concerns. levaquin antibiotic long prednisone taper continue breathing treatments inhaler once a day chest x-ray today. Pneumonia - Pt has been diagnosed with pneumonia by physical exam. A chest xray has been ordered as have antibiotics. The pt is aware of the diagnosis and the need for acute treatment of this illness. levaquin antibiotic long prednisone taper continue breathing treatments inhaler once a day chest x-ray today. Pneumonia - Pt has been diagnosed with pneumonia by physical exam. A chest xray has been ordered as have antibiotics. The pt is aware of the diagnosis and the need for acute treatment of this illness. . Fatigue, Malaise, tick bite - will order tick panel and check labs - will send RX - pt denies snoring or apnea - pt states that he does have a history of lyme disease - pt is to notify clinic if symptoms do not improve, if they wrosen, or with any changes, questions, or concerns [place] - cryotherapy to irritated lesion - pt tolerate procedure well. Murmur - will order ECHO for reassessment - will refer to cardiology if indicated . Left hand/thumb pain - The pt is to use prn antiinflammatories to manage acute pain. The patient is to call the office if the pain is worsening or does not improve. . Bronchitis - acute case of bronchitis identified. Pt has been given antibiotics, breathing treatments as appropriate, and pt has been instructed to call if symptoms are not improved, or if symptoms acutely worsen.
--- OUTSIDE RECORDS SUMMARY | 2018-07-08 10:53 | XMS REPORT | CCD ---
Author Author Anisha Whitmore MD, 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/04/[address]: 9065991 Quit over 10 years ago 08/04/[address]: 859311933 Never drinks alcohol 08/04/2017 Has the patient [...] ProAir HFA 90 mcg/actuation aerosol inhaler RxNorm: 376217 1-2 Puff(s) INH Q4H as needed 06/26/2018 No Stop Date Active Zithromax Z-Jomar 250 mg tablet RxNorm: 063155 1 Tablet(s) PO UD 06/25/2018 06/29/2018 Inactive cefdinir 300 mg capsule RxNorm: 810489 1 Capsule(s) PO BID 07/01/2018 Active albuterol sulfate 2.5 mg/3 mL (0.083 %) solution for nebulization RxNorm: 428909 3 Milliliter(s) INH UD 06/25/2018 No Stop Date Active 4 times a day x 3 days, then 3 times a day x 3 days, then twice a day x 3 days, then as needed ceftriaxone 500 mg solution for injection RxNorm: 1276129 Inj 06/25/2018 06/25/2018 Inactive Kenalog 40 mg/mL suspension for injection RxNorm: 5238139 Milliliter(s) Inj 06/25/2018 06/25/2018 Inactive prednisone 10 mg tablet RxNorm: 378721 Tablet(s) PO UD 2018 No Stop Date Active 60,50,40,30,20,10 clindamycin HCl 300 mg capsule RxNorm: 074321 1 Capsule(s) PO TID 05/07/2018 05/16/2018 Inactive Levaquin 500 mg tablet RxNorm: 755602 1 Tablet(s) PO daily 03/201804/09/2018 Inactive ipratropium-albuterol 0.5 mg-3 mg(2.5 mg base)/3 mL nebulization soln RxNorm: 5367937 3 Milliliter(s) INH qid prn 03/16/2018 No Stop Date Active Kenalog 40 mg/mL suspension for injection RxNorm: 9091894 Milliliter(s) Inj 03/16/2018 03/16/2018 Inactive prednisone 10 mg tablet RxNorm: 114123 Tablet(s) PO UD 201806/23/2018 Inactive 60,60,50,50,40,40,30,30,20,20,10,10 Levaquin 500 mg tablet RxNorm: 412137 1 Tablet(s) PO daily 03/22/2018 Inactive ProAir HFA 90 mcg/actuation aerosol inhaler RxNorm: 466210 1-2 Puff(s) INH Q4H as needed 03/04/2018 06/25/2018 Inactive ceftriaxone 500 mg solution for injection RxNorm: 7826543 2 Milliliter(s) Inj 03/02/2018 03/02/2018 Inactive Kenalog 40 mg/mL suspension for injection RxNorm: 6999885 1.5 Milliliter(s) Inj 03/02/2018 03/02/2018 Inactive prednisone 20 mg tablet RxNorm: 857444 1 Tablet(s) PO BID 03/0203/06/2018 Inactive start tomorrow -1 q am and 1 q noon cefdinir 300 mg capsule RxNorm: 284093 1 Capsule(s) PO BID 03/08/2018 Inactive Zithromax Z-Jomar 250 mg tablet RxNorm: 959998 1 Tablet(s) PO UD 03/02/2018 03/06/2018 Inactive ipratropium-albuterol 0.5 mg-3 mg(2.5 mg base)/3 mL nebulization soln RxNorm: 6168339 3 Milliliter(s) INH qid prn 03/02/2018 03/15/2018 Inactive naproxen 500 mg tablet RxNorm: 189135 1 Tablet(s) PO BID 201701/05/2018 Inactive doxycycline hyclate 100 mg capsule RxNorm: 2810284 1 Capsule(s) PO BID 09/09/2017 09/22/2017 Inactive doxycycline hyclate 100 mg capsule RxNorm: 3397055 1 Capsule(s) PO BID 08/11/2017 08/14/2017 Inactive doxycycline hyclate 100 mg capsule RxNorm: 0930465 1 Capsule(s) PO BID 08/04/2017 08/10/2017 Inactive ProAir HFA 90 mcg/actuation aerosol inhaler RxNorm: 3486686 1-2 Puff(s) INH Q4H as needed No Start Date 03/03/2018 Inactive prednisone 10 mg tablet RxNorm: 888036 Tablet(s) PO No Start Date 03/15/2018 Inactive 60,60,50,50,40,40,30,30,20,20,10,10 Medication Administered Medication Codes Instructions Start Date Status Kenalog 40 mg/mL suspension for injection RxNorm: 6784125 Milliliter 06/25/2018 No longer Active ceftriaxone 500 mg solution for injection RxNorm: 3627475 06/25/2018 No longer Active Kenalog 40 mg/mL suspension for injection RxNorm: 9455563 Milliliter 03/16/2018 No longer Active Kenalog 40 mg/mL suspension for injection RxNorm: 5727895 1.5Milliliter 03/02/2018 No longer Active ceftriaxone 500 mg solution for injection RxNorm: 6464549 2Milliliter 03/02/2018 No longer Active Immunizations No [...] Code Result Date Ehrlichia Chaffeensis Antibody Igm 851263 EHRLICHIA CHAFFEENSIS IGM < 1:16 08/08/2017 Ehrlichia Chaffeensis Antibody Igg 021531 EHRLICHIA CHAFFEENSIS IGG 1:256 08/08/2017 [place] Spotted Fever Igg/Igm 957214 [facility] SPOTTED FEVER IGM EIA . 08/08/2017 [place] Spotted Fever Igg/Igm 096937 RMSF, IGM 0.42 index 08/08/2017 [place] Spotted Fever Igg/Igm 702131 [place] SPOTTED FEVER IGG EIA FLEX . 08/08/2017 [place] Spotted Fever Igg/Igm 746046 RMSF, IGG SCREEN-FLEX Negative 08/08/2017 Tsh Ord6 TSH (3rd IS) 3.72 uIU/mL 08/05/2017 Free T4 Hdk775 FREE T4 0.98 ng/dL 08/05/2017 [place]ym[place] Disease Total Antibodies With Western Blot Reflex 918737 B. BURGDORFERI, IGG/IGM 0.176 08/05/2017 [place]ym[place] Disease Total Antibodies With Western Blot Reflex [id number] 08/05/2017 %Hba1C Opm304 % HbA1c 91276-2 5.6 % 08/04/2017 %Hba1C Whp925 Gluc Ave 114 mg/dL 08/04/2017 Comp Metabolic Jjh178 NA 136 mEq/L 08/04/2017 Comp Metabolic Ssh718 K 4.4 mEq/L 08/04/2017 Comp Metabolic Hhj300 CL 100 mEq/L 08/04/2017 Comp Metabolic Npj932 CO2 27.0 mEq/L 08/04/2017 Comp Metabolic Knf504 ANION GAP 13 08/04/2017 Comp Metabolic Raj471 GLUCOSE 95 mg/dL 08/04/2017 Comp Metabolic Iqp443 Creat 0.8 mg/dL 08/04/2017 Comp Metabolic Fnx362 eGFR 105 ml/min/1.73m2 08/04/2017 Comp Metabolic Kuy857 BUN 28 mg/dL 08/04/2017 Comp Metabolic Hmc855 B/C Ratio 35.0 Ratio 08/04/2017 Comp Metabolic Rgf813 CALCIUM 8.7 mg/dL 08/04/2017 Comp Metabolic Vmh888 ALK PHOS 61 U/L 08/04/2017 Comp Metabolic Cqp311 AST(SGOT) 21 U/L 08/04/2017 Comp Metabolic Vin646 ALT(SGPT) 18 U/L 08/04/2017 Comp Metabolic Uuo282 BILI T 0.7 mg/dL 08/04/2017 Comp Metabolic Ffp396 ALBUMIN 4.5 g/dL 08/04/2017 Comp Metabolic Jlo139 TPRO 6.7 g/dL 08/04/2017 Comp Metabolic Kpu318 GLOB 2.3 g/dL 08/04/2017 Comp Metabolic Lea382 A/G Ratio 2.0 Ratio 08/04/2017 Comp Metabolic Qrj214 Osmo 277 mOsmo 08/04/2017 Cbc With Differential [...] 31.1 pg 08/04/2017 Cbc With Differential Ord2 [place]% 8.7 % 08/04/2017 Cbc With Differential Ord2 [...] 1.49 K/ul 08/04/2017 Cbc With Differential Ord2 [place] ABS# 0.6 K/ul 08/04/2017 Cbc With Differential [...] CPT-4: J0696 03/02/2018 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 CPT-4: 84892 08/04/2017 Vital Signs Date Vital 06/25/2018 Blood Pressure 1: 134/60 Code : 8480-6 BMI: 26.6 Code : 46093-3 Heart Rate 1 : 80 bpm Height: 5'7" SpO2: 95% Temperature: 37.2 (C) / 99.0 (F) Weight: 170 lbs 05/07/2018 Blood Pressure 1: 144/76 Code : 8480-6 BMI: 26.9 Code : 94805-1 Heart Rate 1 : 77 bpm Height: 5'7" SpO2: 98% Weight: 172 lbs 03/16/2018 Blood Pressure 1: 122/68 Code : 8480-6 BMI: 26.6 Code : 68265-4 Heart Rate 1 : 88 bpm Height: 5'7" SpO2: 96% Weight: 170 lbs 03/02/2018 Blood Pressure 1: 140/80 Code : 8480-6 BMI: 26.5 Code : 72447-3 Heart Rate 1 : 87 bpm Height: 5'7" SpO2: 95% Temperature: 36.7 (C) / 98.1 (F) Weight: 169 lbs 01/01/2018 Blood Pressure 1: 134/66 Code : 8480-6 BMI: 26.8 Code : 05817-5 Heart Rate 1 : 65 bpm Height: 5'7" SpO2: 99% Weight: 171 lbs 08/25/2017 Blood Pressure 1: 136/72 Code : 8480-6 BMI: 27.4 Code : 85717-9 Heart Rate 1 : 70 bpm Height: 5'7" SpO2: 96% Weight: 175 lbs 08/04/2017 Blood Pressure 1: 130/78 Code : 8480-6 BMI: 27.6 Code : 32254-0 Heart Rate 1 : 65 bpm Height: [...] data Encounters Encounter Performer Location Codes Date 55381 EST. PATIENT, LEVEL III Diagnosis: Acute bronchitis due to other specified organisms[ICD10: J20.8] Anisha Ortega MD, [facility] CPT-4: 98243 06/25/2018 44206 EST. PATIENT, LEVEL IV Diagnosis: Periapical abscess without sinus[ICD10: K04.7] Anisha Ortega MD, [facility] CPT-4: 59552 05/07/2018 55468 EST. PATIENT, LEVEL IV Diagnosis: Cough[ICD10: R05] Diagnosis: Pneumonia, unspecified organism[ICD10: J18.9] Anisha Ortega MD, [facility] CPT-4: 97208 03/16/2018 ([id number]) 78629 EST. PATIENT, LEVEL III Diagnosis: Cough[ICD10: R05] Diagnosis: Pneumonia, unspecified organism[ICD10: J18.9] Reta Ortega MD, [facility] CPT-4: 73291 03/02/2018 80431 EST. PATIENT, LEVEL III Diagnosis: Pain in left finger(s)[ICD10: M79.645] Diagnosis: Pain in left hand[ICD10: M79.642] Anisha Ortega MD, [facility] CPT -4: 11252 01/01/2018 94663 EST. PATIENT, LEVEL III Diagnosis: Other fatigue[ICD10: R53.83] [facility] CPT-4 : 03663 08/25/2017 OFFICE VISIT, NEW - LEVEL 3 Diagnosis: Other malaise[ICD10: R53.81] Diagnosis: Other fatigue[ICD10: R53.83] Diagnosis: Other hypoglycemia[ICD10: E16.1] Diagnosis: Actinic keratosis[ICD10: L57.0] Diagnosis: Cardiac murmur, unspecified[ICD10: R01.1] [facility] CPT-4: 43256 08/04/2017 Plan of Care Planned Activity Notes Codes Status Date Visit Plan: Bronchitis - acute case of bronchitis identified. Pt has been given antibiotics, breathing treatments as appropriate, and pt has been instructed to call if symptoms are not improved, or if symptoms acutely worsen. 06/25/2018 Appointment: Anisha Whitmore WPtel: [facility] (30 min) Complex 06/25/2018 Patient Education: Patient Medication Summary Completed 06/25/2018 Visit Plan: Dental abscess - will start on abx - pt is to follow up with dentist ROMARIO. Pt is to notify clinic if symptoms do not improve, if they worsen, or with any changes, questions, or concerns. 05/07/2018 Appointment: Anisha Whitmore WPtel: [facility] (30 min) Complex 05/07/2018 Patient Education: Patient Medication Summary Completed 05/07/2018 Appointment: Anisha Whitmore WPtel: [address] [place], [place] [id number] (15 min) Moderate 03/23/2018 Visit Plan: Pneumonia [...] illness. 03/16/2018 Appointment: Anisha Whitmore WPtel: [phone] [facility] [place] (15 min) Moderate 03/16/2018 Patient Education: Patient Medication Summary Completed 03/16/2018 Care Plan: CHEST X-RAY 2VW FRONTAL&LATL LOINC : 12372-0 Pending 03/16/2018 Visit Plan: Pneumonia - Pt has been diagnosed with pneumonia by physical exam. A chest xray has been ordered as have antibiotics. The pt is aware of the diagnosis and the need for acute treatment of this illness. 03/02/2018 Appointment: Reta Gonzalez WPtel: [phone] [phone] [place] (30 min) Complex 03/02/2018 Patient Education: Patient Medication Summary Completed 03/02/2018 Care Plan: CHEST X-RAY 2VW FRONTAL&LATL LOINC : 82167-1 Pending 03/02/2018 Appointment: Anisha Whitmore WPtel: [facility] [place] (15 min) Moderate 02/19/2018 Visit Plan: Left hand/thumb pain - The pt is to use prn antiinflammatories to manage acute pain. The patient is to call the office if the pain is worsening or does not improve. 01/01/2018 Appointment: Anisha Whitmore WPtel: [phone] [facility] [place] (15 min) Moderate 01/01/2018 Patient Education: Patient Medication Summary Completed 01/01/2018 Care Plan: X-RAY EXAM OF HAND LOINC : 90033-2 Pending 01/01/2018 Visit Plan: Fatigue, malaise, joint complaints - improved since finishing doxy - will have pt monitor symptoms and notify clinic if symptoms return, or with any changes, questions, or concerns. 08/25/2017 Appointment: Anisha Whitmore WPtel: [facility] [place] (15 min) Moderate 08/25/2017 Patient Education: Patient Medication Summary Completed 08/25/2017 Appointment: Anisha Whitmore WPtel: [facility] (30 min) Complex 08/22/2017 Visit Plan: Fatigue, [...] if indicated 08/04/2017 Appointment: Anisha Whitmore WPtel: [address] [place], [place] [phone] New Patient 08/04/2017 Patient Education: Patient Medication Summary Completed 08/04/2017 Appointment: Anisha Whitmore WPtel: [address] [place], [place] [phone] New Patient 07/18/2017 Instructions Comment . Fatigue, [...]
--- OUTSIDE RECORDS SUMMARY | 2018-07-08 10:54 | XMS REPORT | CCD ---
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 Unknown Has never used illegal drugs 08/04/2017 Allergies, Adverse Reactions, Alerts Substance Reaction Codes Entered Date Inactivated Date Status NO KNOWN DRUG ALLERGIES Unknown 08/04/2017 No Inactive Date Active Past Medical History Illness Codes Condition Status Onset Date Resolved Date Periapical abscess without sinus ICD-9: 522.5 ICD-10: [...] Problems Condition Codes Effective Dates Condition Status Periapical abscess without sinus ICD-9: 522.5 ICD-10: [...] ProAir HFA 90 mcg/actuation aerosol inhaler RxNorm: 217135 1-2 Puff(s) INH Q4H as needed 06/26/2018 No Stop Date Active Zithromax Z-Jomar 250 mg tablet RxNorm: 136573 1 Tablet(s) PO UD 06/25/2018 06/29/2018 Active cefdinir 300 mg capsule RxNorm: 275098 1 Capsule(s) PO BID 07/01/2018 Active albuterol sulfate 2.5 mg/3 mL (0.083 %) solution for nebulization RxNorm: 033398 3 Milliliter(s) INH UD 06/25/2018 No Stop Date Active 4 times a day x 3 days, then 3 times a day x 3 days, then twice a day x 3 days, then as needed ceftriaxone 500 mg solution for injection RxNorm: 2875930 Inj 06/25/2018 06/25/2018 Inactive Kenalog 40 mg/mL suspension for injection RxNorm: 1549534 Milliliter(s) Inj 06/25/2018 06/25/2018 Inactive prednisone 10 mg tablet RxNorm: 212979 Tablet(s) PO UD 2018 No Stop Date Active 60,50,40,30,20,10 clindamycin HCl 300 mg capsule RxNorm: 136404 1 Capsule(s) PO TID 05/07/2018 05/16/2018 Inactive Levaquin 500 mg tablet RxNorm: 707053 1 Tablet(s) PO daily 03/201804/09/2018 Inactive ipratropium-albuterol 0.5 mg-3 mg(2.5 mg base)/3 mL nebulization soln RxNorm: 5045244 3 Milliliter(s) INH qid prn 03/16/2018 No Stop Date Active Kenalog 40 mg/mL suspension for injection RxNorm: 7644710 Milliliter(s) Inj 03/16/2018 03/16/2018 Inactive prednisone 10 mg tablet RxNorm: 216168 Tablet(s) PO UD 201806/23/2018 Inactive 60,60,50,50,40,40,30,30,20,20,10,10 Levaquin 500 mg tablet RxNorm: 070656 1 Tablet(s) PO daily 03/22/2018 Inactive ProAir HFA 90 mcg/actuation aerosol inhaler RxNorm: 515408 1-2 Puff(s) INH Q4H as needed 03/04/2018 06/25/2018 Inactive ceftriaxone 500 mg solution for injection RxNorm: 0577565 2 Milliliter(s) Inj 03/02/2018 03/02/2018 Inactive Kenalog 40 mg/mL suspension for injection RxNorm: 0678784 1.5 Milliliter(s) Inj 03/02/2018 03/02/2018 Inactive prednisone 20 mg tablet RxNorm: 733773 1 Tablet(s) PO BID 03/0203/06/2018 Inactive start tomorrow -1 q am and 1 q noon cefdinir 300 mg capsule RxNorm: 793040 1 Capsule(s) PO BID 03/08/2018 Inactive Zithromax Z-Jomar 250 mg tablet RxNorm: 174275 1 Tablet(s) PO UD 03/02/2018 03/06/2018 Inactive ipratropium-albuterol 0.5 mg-3 mg(2.5 mg base)/3 mL nebulization soln RxNorm: 5191044 3 Milliliter(s) INH qid prn 03/02/2018 03/15/2018 Inactive naproxen 500 mg tablet RxNorm: 059350 1 Tablet(s) PO BID 201701/05/2018 Inactive doxycycline hyclate 100 mg capsule RxNorm: 2923589 1 Capsule(s) PO BID 09/09/2017 09/22/2017 Inactive doxycycline hyclate 100 mg capsule RxNorm: 9260403 1 Capsule(s) PO BID 08/11/2017 08/14/2017 Inactive doxycycline hyclate 100 mg capsule RxNorm: 5364386 1 Capsule(s) PO BID 08/04/2017 08/10/2017 Inactive ProAir HFA 90 mcg/actuation aerosol inhaler RxNorm: 2547058 1-2 Puff(s) INH Q4H as needed No Start Date 03/03/2018 Inactive prednisone 10 mg tablet RxNorm: 586845 Tablet(s) PO No Start Date 03/15/2018 Inactive 60,60,50,50,40,40,30,30,20,20,10,10 Medication Administered Medication Codes Instructions Start Date Status Kenalog 40 mg/mL suspension for injection RxNorm: 4568963 Milliliter 03/16/2018 No longer Active Kenalog 40 mg/mL suspension for injection RxNorm: 5393790 1.5Milliliter 03/02/2018 No longer Active ceftriaxone 500 mg solution for injection RxNorm: 2878229 2Milliliter 03/02/2018 No longer Active Immunizations No Immunization data Assessments Condition Codes Effective Dates Periapical abscess without sinus ICD-10: K04.7 ICD-9: [...] Visit Reason For Visit Effective Dates Notes oral pain 05/07/2018 cough 03/16/2018 cough 03/02/2018 thumb and hand pain 01/01/2018 fatigue 08/25/2017 fatigue 08/04/2017 Results Observation Observation Code Item Item Code Result Date Ehrlichia Chaffeensis Antibody Igm 232021 EHRLICHIA CHAFFEENSIS IGM < 1:16 08/08/2017 Ehrlichia Chaffeensis Antibody Igg 982294 EHRLICHIA CHAFFEENSIS IGG 1:256 08/08/2017 [place] Spotted Fever Igg/Igm 958727 [place] SPOTTED FEVER IGM EIA . 08/08/2017 [place] Spotted Fever Igg/Igm 082047 RMSF, IGM 0.42 index 08/08/2017 [place] Spotted Fever Igg/Igm 672613 [place] SPOTTED FEVER IGG EIA FLEX . 08/08/2017 [place] Spotted Fever Igg/Igm 331637 RMSF, IGG SCREEN-FLEX Negative 08/08/2017 Tsh Ord6 TSH (3rd IS) 3.72 uIU/mL 08/05/2017 Free T4 Qex648 FREE T4 0.98 ng/dL 08/05/2017 Lymes Disease Total Antibodies With Western Blot Reflex [id number] B. BURGDORFERI, IGG/IGM 0.176 08/05/2017 Lymes Disease Total Antibodies With Western Blot Reflex [id number] 08/05/2017 %Hba1C Cqe547 % HbA1c 41504-8 5.6 % 08/04/2017 %Hba1C Axf914 Gluc Ave 114 mg/dL 08/04/2017 Comp Metabolic Ous256 NA 136 mEq/L 08/04/2017 Comp Metabolic Dom650 K 4.4 mEq/L 08/04/2017 Comp Metabolic Bkm662 CL 100 mEq/L 08/04/2017 Comp Metabolic Ota805 CO2 27.0 mEq/L 08/04/2017 Comp Metabolic Ssz517 ANION GAP 13 08/04/2017 Comp Metabolic Tvm258 GLUCOSE 95 mg/dL 08/04/2017 Comp Metabolic Nhk248 Creat 0.8 mg/dL 08/04/2017 Comp Metabolic Gye428 eGFR 105 ml/min/1.73m2 08/04/2017 Comp Metabolic Nsh849 BUN 28 mg/dL 08/04/2017 Comp Metabolic Mfz911 B/C Ratio 35.0 Ratio 08/04/2017 Comp Metabolic Orb548 CALCIUM 8.7 mg/dL 08/04/2017 Comp Metabolic Leg158 ALK PHOS 61 U/L 08/04/2017 Comp Metabolic Wti380 AST(SGOT) 21 U/L 08/04/2017 Comp Metabolic Urq704 ALT(SGPT) 18 U/L 08/04/2017 Comp Metabolic Pwa677 BILI T 0.7 mg/dL 08/04/2017 Comp Metabolic Tki146 ALBUMIN 4.5 g/dL 08/04/2017 Comp Metabolic Zhu559 TPRO 6.7 g/dL 08/04/2017 Comp Metabolic Qlf173 GLOB 2.3 g/dL 08/04/2017 Comp Metabolic Mig569 A/G Ratio 2.0 Ratio 08/04/2017 Comp Metabolic Bcm658 Osmo 277 mOsmo 08/04/2017 Cbc With Differential [...] 31.1 pg 08/04/2017 Cbc With Differential Ord2 [place]% 8.7 % 08/04/2017 Cbc With Differential Ord2 [...] 1.49 K/ul 08/04/2017 Cbc With Differential Ord2 [place] ABS# 0.6 K/ul 08/04/2017 Cbc With Differential Ord2 Eos ABS# 0.2 K/ul 08/04/2017 Cbc With Differential Ord2 Baso ABS# 0.0 K/ul 08/04/2017 Lipid Ord30 CHOL 209 mg/dL 08/04/2017 Lipid Ord30 HDL 56.0 mg/dl 08/04/2017 Lipid Ord30 TRIG 98 mg/dL 08/04/2017 Lipid Ord30 LDL 133 mg/dL 08/04/2017 Lipid Ord30 C/HDL 3.7 Ratio 08/04/2017 Review of Systems System Result Effective Dates Constitutional No recent illness 2018 Constitutional No [...] distress 05/07/2018 None Full Exam - General 1995 Constitutional general appearance Overall: well nourished 05/07/2018 None Full Exam - General 1994 Eyes conjunctiva /eyelids Overall: eyelids normal 05/07/2018 None Full Exam - General 1995 Eyes conjunctiva /eyelids Overall: cornea clear 05/07/2018 None Full Exam - General 1995 Eyes conjunctiva /eyelids Overall: conjunctiva clear 05/07/2018 None Full Exam - General 1995 Ears/Nose/Throat lips/teeth/gingiva Overall: benign lips 05/07/2018 None Full Exam - General 1995 Ears/Nose/Throat lips/teeth/gingiva Teeth: dental caries 05/07/2018 None Full Exam - General 1995 Ears/Nose/Throat oral cavity/pharynx/larynx Overall: oral mucosa clear 05/07/2018 None Full Exam - General 1994 Respiratory respiratory effort/rhythm Overall: normal rate 05/07/2018 None Full Exam - General 1994 Respiratory respiratory effort/rhythm Overall: no retractions 05/07/2018 None Full Exam - General 1994 Respiratory auscultation Overall: breath sounds clear bilaterally 05/07/2018 None Full Exam - General 1994 [...] 03/16/2018 None Full Exam - General 1995 Eyes conjunctiva /eyelids Overall: cornea clear 03/16/2018 None Full Exam - General 1994 Eyes conjunctiva /eyelids Overall: eyelids normal 03/16/2018 None Full Exam - General 1994 Eyes pupils and irises Overall: pupils equal, round, reactive to light and accomodation 03/16/2018 None Full Exam - General 1995 Ears/Nose/Throat otoscopic exam Overall: external auditory canals clear 03/16/2018 None Full Exam - General 1995 Ears/Nose/Throat otoscopic exam Overall: tympanic membranes clear 03/16/2018 None Full Exam - General 1994 Ears/Nose/Throat lips/teeth/gingiva Overall: benign lips 03/16/2018 None Full Exam - General 1994 [...] Date TRIAMCINOLONE ACET INJ NOS CPT-4: J3301 03/16/2018 TRIAMCINOLONE ACET INJ NOS CPT-4: J3301 03/02/2018 ROCEPHIN, PER 250 MG CPT-4: J0696 03/02/2018 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 CPT-4: 86629 08/04/2017 Vital Signs Date Vital 05/07/2018 Blood Pressure 1: 144/76 Code : 8480-6 BMI: 26.9 Code : 12454-2 Heart Rate 1 : 77 bpm Height: 5'7" SpO2: 98% Weight: 172 lbs 03/16/2018 Blood Pressure 1: 122/68 Code : 8480-6 BMI: 26.6 Code : 68054-5 Heart Rate 1 : 88 bpm Height: 5'7" SpO2: 96% Weight: 170 lbs 03/02/2018 Blood Pressure 1: 140/80 Code : 8480-6 BMI: 26.5 Code : 75897-2 Heart Rate 1 : 87 bpm Height: 5'7" SpO2: 95% Temperature: 36.7 (C) / 98.1 (F) Weight: 169 lbs 01/01/2018 Blood Pressure 1: 134/66 Code : 8480-6 BMI: 26.8 Code : 49818-2 Heart Rate 1 : 65 bpm Height: 5'7" SpO2: 99% Weight: 171 lbs 08/25/2017 Blood Pressure 1: 136/72 Code : 8480-6 BMI: 27.4 Code : 51979-4 Heart Rate 1 : 70 bpm Height: 5'7" SpO2: 96% Weight: 175 lbs 08/04/2017 Blood Pressure 1: 130/78 Code : 8480-6 BMI: 27.6 Code : 02292-5 Heart Rate 1 : 65 bpm Height: 5'7" SpO2: 97% Weight: 176 lbs Functional Status No Functional Status data History of Present Illness Symptom Name Status Result Effective Date Notes Location on the right 05/07/2018 None Quality [...] data Encounters Encounter Performer Location Codes Date EST. PATIENT, LEVEL IV Diagnosis: Periapical abscess without sinus[ICD10: K04.7] Anisha Ortega MD, [facility] CPT-4: 84484 05/07/2018 62618 EST. PATIENT, LEVEL IV Diagnosis: Cough[ICD10: R05] Diagnosis: Pneumonia, unspecified organism[ICD10: J18.9] Anisha Ortega MD, [facility] CPT-4: 95175 03/16/2018 ([id number]) 56158 EST. PATIENT, LEVEL III Diagnosis: Cough[ICD10: R05] Diagnosis: Pneumonia, unspecified organism[ICD10: J18.9] Reta Ortega MD, [facility] CPT-4: 11660 03/02/2018 99179 EST. PATIENT, LEVEL III Diagnosis: Pain in left finger(s)[ICD10: M79.645] Diagnosis: Pain in left hand[ICD10: M79.642] Anisha Ortega MD, [facility] CPT -4: 37673 01/01/2018 82225 EST. PATIENT, LEVEL III Diagnosis: Other fatigue[ICD10: R53.83] [facility] CPT-4 : 57502 08/25/2017 OFFICE VISIT, NEW - LEVEL 3 Diagnosis: Other malaise[ICD10: R53.81] Diagnosis: Other fatigue[ICD10: R53.83] Diagnosis: Other hypoglycemia[ICD10: E16.1] Diagnosis: Actinic keratosis[ICD10: L57.0] Diagnosis: Cardiac murmur, unspecified[ICD10: R01.1] [facility] CPT-4: 44235 08/04/2017 Plan of Care Planned Activity Notes Codes Status Date Appointment: Anisha Whitmore WPtel: [address] [place], [place] [phone] (30 min) Complex 06/25/2018 Visit Plan: Dental abscess - will start on abx - pt is to follow up with dentist ROMARIO. Pt is to notify clinic if symptoms do not improve, if they worsen, or with any changes, questions, or concerns. 05/07/2018 Appointment: Anisha Whitmore WPtel: [address] [place], [place] [phone] (30 min) Complex 05/07/2018 Patient Education: Patient Medication Summary Completed 05/07/2018 Appointment: Anisha Whitmore WPtel: [address] [place], [place] [id number] (15 min) Moderate 03/23/2018 Visit Plan: Pneumonia [...] this illness. 03/16/2018 Appointment: Anisha Whitmore WPtel: [facility] (15 min) Moderate 03/16/2018 Patient Education: Patient Medication Summary Completed 03/16/2018 Care Plan: CHEST X-RAY 2VW FRONTAL&LATL LOINC : 79198-0 Pending 03/16/2018 Visit Plan: Pneumonia - Pt has been diagnosed with pneumonia by physical exam. A chest xray has been ordered as have antibiotics. The pt is aware of the diagnosis and the need for acute treatment of this illness. 03/02/2018 Appointment: Reta Gonzalez WPtel: [phone] [place] (30 min) Complex 03/02/2018 Patient Education: Patient Medication Summary Completed 03/02/2018 Care Plan: CHEST X-RAY 2VW FRONTAL&LATL LOINC : 98810-5 Pending 03/02/2018 Appointment: Anisha Whitmore WPtel: [facility] [place] (15 min) Moderate 02/19/2018 Visit Plan: Left hand/thumb pain - The pt is to use prn antiinflammatories to manage acute pain. The patient is to call the office if the pain is worsening or does not improve. 01/01/2018 Appointment: Anisha Whitmore WPtel[facility] [place] (15 min) Moderate 01/01/2018 Patient Education: Patient Medication Summary Completed 01/01/2018 Care Plan: X-RAY EXAM OF HAND LOINC : 67751-6 Pending 01/01/2018 Visit Plan: Fatigue, malaise, joint complaints - improved since finishing doxy - will have pt monitor symptoms and notify clinic if symptoms return, or with any changes, questions, or concerns. 08/25/2017 Appointment: Anisha Whitmore WPtel: [facility] [place] (15 min) Moderate 08/25/2017 Patient Education: Patient Medication Summary Completed 08/25/2017 Appointment: Anisha Whitmore WPtel: [facility] [place] (30 min) Complex 08/22/2017 Visit Plan: Fatigue, [...] if indicated 08/04/2017 Appointment: [facility] [phone] [facility] [place] New Patient 08/04/2017 Patient Education: Patient Medication Summary Completed 08/04/2017 App[facility]ment: [facility] [phone] [facility] New Patient 07/18/2017 Instructions Comment . Fatigue, [...]
--- OUTSIDE RECORDS SUMMARY | 2018-07-08 10:55 | XMS REPORT | CCD ---
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 08/04/[address]: 4643635 Quit over 10 years ago 08/04/[address]: 226756382 Never drinks alcohol 08/04/2017 Has the patient [...] Start Date Stop Date Status Fill Instructions prednisone 10 mg tablet RxNorm: 806284 Tablet(s) PO UD 2018 No Stop Date Active 60,50,40,30,20,10 clindamycin HCl 300 mg capsule RxNorm: 402508 1 Capsule(s) PO TID 05/07/2018 05/16/2018 Inactive Levaquin 500 mg tablet RxNorm: 201459 1 Tablet(s) PO daily 03/201804/09/2018 Inactive ipratropium-albuterol 0.5 mg-3 mg(2.5 mg base)/3 mL nebulization soln RxNorm: 2898120 3 Milliliter(s) INH qid prn 03/16/2018 No Stop Date Active Kenalog 40 mg/mL suspension for injection RxNorm: 2175711 Milliliter(s) Inj 03/16/2018 03/16/2018 Inactive prednisone 10 mg tablet RxNorm: 425794 Tablet(s) PO UD 201806/23/2018 Inactive 60,60,50,50,40,40,30,30,20,20,10,10 Levaquin 500 mg tablet RxNorm: 415242 1 Tablet(s) PO daily 03/22/2018 Inactive ProAir HFA 90 mcg/actuation aerosol inhaler RxNorm: 1664584 1-2 Puff(s) INH Q4H as needed 03/04/2018 No Stop Date Active ceftriaxone 500 mg solution for injection RxNorm: 4496686 2 Milliliter(s) Inj 03/02/2018 03/02/2018 Inactive Kenalog 40 mg/mL suspension for injection RxNorm: 1443086 1.5 Milliliter(s) Inj 03/02/2018 03/02/2018 Inactive prednisone 20 mg tablet RxNorm: 975389 1 Tablet(s) PO BID 03/0203/06/2018 Inactive start tomorrow -1 q am and 1 q noon cefdinir 300 mg capsule RxNorm: 984806 1 Capsule(s) PO BID 03/08/2018 Inactive Zithromax Z-Jomar 250 mg tablet RxNorm: 452271 1 Tablet(s) PO UD 03/02/2018 03/06/2018 Inactive ipratropium-albuterol 0.5 mg-3 mg(2.5 mg base)/3 mL nebulization soln RxNorm: 5619890 3 Milliliter(s) INH qid prn 03/02/2018 03/15/2018 Inactive naproxen 500 mg tablet RxNorm: 939167 1 Tablet(s) PO BID 201701/05/2018 Inactive doxycycline hyclate 100 mg capsule RxNorm: 1869834 1 Capsule(s) PO BID 09/09/2017 09/22/2017 Inactive doxycycline hyclate 100 mg capsule RxNorm: 9235761 1 Capsule(s) PO BID 08/11/2017 08/14/2017 Inactive doxycycline hyclate 100 mg capsule RxNorm: 5572731 1 Capsule(s) PO BID 08/04/2017 08/10/2017 Inactive ProAir HFA 90 mcg/actuation aerosol inhaler RxNorm: 6651616 1-2 Puff(s) INH Q4H as needed No Start Date 03/03/2018 Inactive prednisone 10 mg tablet RxNorm: 439913 Tablet(s) PO No Start Date 03/15/2018 Inactive 60,60,50,50,40,40,30,30,20,20,10,10 Medication Administered Medication Codes Instructions Start Date Status Kenalog 40 mg/mL suspension for injection RxNorm: 9787715 Milliliter 03/16/2018 No longer Active Kenalog 40 mg/mL suspension for injection RxNorm: 0066725 1.5Milliliter 03/02/2018 No longer Active ceftriaxone 500 mg solution for injection RxNorm: 1783749 2Milliliter 03/02/2018 No longer Active Immunizations No [...] Code Result Date Ehrlichia Chaffeensis Antibody Igm 067853 EHRLICHIA CHAFFEENSIS IGM < 1:16 08/08/2017 Ehrlichia Chaffeensis Antibody Igg 927850 EHRLICHIA CHAFFEENSIS IGG 1:256 08/08/2017 [place] Spotted Fever Igg/Igm 218617 [place] SPOTTED FEVER IGM EIA . 08/08/2017 [place] Spotted Fever Igg/Igm 502031 RMSF, IGM 0.42 index 08/08/2017 [place] Spotted Fever Igg/Igm 042376 [place] SPOTTED FEVER IGG EIA FLEX . 08/08/2017 [place] Spotted Fever Igg/Igm 415687 RMSF, IGG SCREEN-FLEX Negative 08/08/2017 Tsh Ord6 TSH (3rd IS) 3.72 uIU/mL 08/05/2017 Free T4 Ews395 FREE T4 0.98 ng/dL 08/05/2017 Lymes Disease Total Antibodies With Western Blot Reflex 467107 B. BURGDORFERI, IGG/IGM 0.176 08/05/2017 [place]ym[place] Disease Total Antibodies With Western Blot Reflex 730802 08/05/2017 %Hba1C Aca738 % HbA1c 17677-1 5.6 % 08/04/2017 %Hba1C Cdf823 Gluc Ave 114 mg/dL 08/04/2017 Comp Metabolic Fwd701 NA 136 mEq/L 08/04/2017 Comp Metabolic Wvs266 K 4.4 mEq/L 08/04/2017 Comp Metabolic Oqw980 CL 100 mEq/L 08/04/2017 Comp Metabolic Pmn906 CO2 27.0 mEq/L 08/04/2017 Comp Metabolic Cjq608 ANION GAP 13 08/04/2017 Comp Metabolic Gmk019 GLUCOSE 95 mg/dL 08/04/2017 Comp Metabolic Lip136 Creat 0.8 mg/dL 08/04/2017 Comp Metabolic Qdo017 eGFR 105 ml/min/1.73m2 08/04/2017 Comp Metabolic Pwr388 BUN 28 mg/dL 08/04/2017 Comp Metabolic Maa813 B/C Ratio 35.0 Ratio 08/04/2017 Comp Metabolic Anf828 CALCIUM 8.7 mg/dL 08/04/2017 Comp Metabolic Hgs154 ALK PHOS 61 U/L 08/04/2017 Comp Metabolic Toq954 AST(SGOT) 21 U/L 08/04/2017 Comp Metabolic Ewu180 ALT(SGPT) 18 U/L 08/04/2017 Comp Metabolic Fyc734 BILI T 0.7 mg/dL 08/04/2017 Comp Metabolic Hvq634 ALBUMIN 4.5 g/dL 08/04/2017 Comp Metabolic Anv974 TPRO 6.7 g/dL 08/04/2017 Comp Metabolic Uxd673 GLOB 2.3 g/dL 08/04/2017 Comp Metabolic Blh098 A/G Ratio 2.0 Ratio 08/04/2017 Comp Metabolic Iqo247 Osmo 277 mOsmo 08/04/2017 Cbc With Differential [...] 31.1 pg 08/04/2017 Cbc With Differential Ord2 [place]% 8.7 % 08/04/2017 Cbc With Differential Ord2 [...] 1.49 K/ul 08/04/2017 Cbc With Differential Ord2 [place] ABS# 0.6 K/ul 08/04/2017 Cbc With Differential [...] III/ 05/07/2018 None Full Exam - General 1995 Musculoskeletal head and neck Overall: head atraumatic [...] normal 08/25/2017 None Full Exam - General 1995 Ears/Nose/Throat [...] CPT-4: J0696 03/02/2018 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 CPT-4: 03373 08/04/2017 Vital Signs Date Vital 05/07/2018 Blood Pressure 1: 144/76 Code : 8480-6 BMI: 26.9 Code : 21552-0 Heart Rate 1 : 77 bpm Height: 5'7" SpO2: 98% Weight: 172 lbs 03/16/2018 Blood Pressure 1: 122/68 Code : 8480-6 BMI: 26.6 Code : 45199-5 Heart Rate 1 : 88 bpm Height: 5'7" SpO2: 96% Weight: 170 lbs 03/02/2018 Blood Pressure 1: 140/80 Code : 8480-6 BMI: 26.5 Code : 71130-9 Heart Rate 1 : 87 bpm Height: 5'7" SpO2: 95% Temperature: 36.7 (C) / 98.1 (F) Weight: 169 lbs 01/01/2018 Blood Pressure 1: 134/66 Code : 8480-6 BMI: 26.8 Code : 89653-4 Heart Rate 1 : 65 bpm Height: 5'7" SpO2: 99% Weight: 171 lbs 08/25/2017 Blood Pressure 1: 136/72 Code : 8480-6 BMI: 27.4 Code : 27503-2 Heart Rate 1 : 70 bpm Height: 5'7" SpO2: 96% Weight: 175 lbs 08/04/2017 Blood Pressure 1: 130/78 Code : 8480-6 BMI: 27.6 Code : 04298-6 Heart Rate 1 : 65 bpm Height: [...] abscess without sinus[ICD10: K04.7] Anisha Ortega MD, [facility] CPT-4: 00730 05/07/2018 72571 EST. PATIENT, LEVEL IV Diagnosis: Cough[ICD10: R05] Diagnosis: Pneumonia, unspecified organism[ICD10: J18.9] Anisha Ortega MD, [facility] CPT-4: 16842 03/16/2018 ([id number]) 83808 EST. PATIENT, LEVEL III Diagnosis: Cough[ICD10: R05] Diagnosis: Pneumonia, unspecified organism[ICD10: J18.9] Reta Ortega MD, [facility] CPT-4: 39800 03/02/2018 [id number] EST. PATIENT, LEVEL III Diagnosis: Pain in left finger(s)[ICD10: M79.645] Diagnosis: Pain in left hand[ICD10: M79.642] Anisha Ortega MD, [facility] CPT -4: 47484 01/01/2018 [id number] EST. PATIENT, LEVEL III Diagnosis: Other fatigue[ICD10: R53.83] Anisha Ortega MD, [facility] CPT-4 : 73915 08/25/2017 OFFICE VISIT, NEW - LEVEL 3 Diagnosis: Other malaise[ICD10: R53.81] Diagnosis: Other fatigue[ICD10: R53.83] Diagnosis: Other hypoglycemia[ICD10: E16.1] Diagnosis: Actinic keratosis[ICD10: L57.0] Diagnosis: Cardiac murmur, unspecified[ICD10: R01.1] Anisha Ortega MD, [facility] CPT-4: 26866 08/04/2017 Plan of Care Planned Activity Notes Codes Status Date Visit Plan: Dental abscess - will start on abx - pt is to follow up with dentist ROMARIO. Pt is to notify clinic if symptoms do not improve, if they worsen, or with any changes, questions, or concerns. 05/07/2018 Appointment: Anisha Whitmore WPtel: [address] [place], [place] [phone] (30 min) [facility] 05/07/2018 Patient Education: Patient Medication Summary Completed 05/07/2018 Appointment: Anisha Whitmore WPtel: [phone] [facility] [place] (15 min) Moderate 03/23/2018 Visit Plan: Pneumonia [...] this illness. 03/16/2018 Appointment: Anisha Whitmore [facility]Ptel: [facility] [place] (15 min) Moderate 03/16/2018 Patient Education: Patient Medication Summary Completed 03/16/2018 Care Plan: CHEST X-RAY 2VW FRONTAL&LATL LOINC : 55443-7 Pending 03/16/2018 Visit Plan: Pneumonia - Pt has been diagnosed with pneumonia by physical exam. A chest xray has been ordered as have antibiotics. The pt is aware of the diagnosis and the need for acute treatment of this illness. 03/02/2018 Appointment: Reta Gonzalez [facility]el[facility] [phone] [phone] [place] (30 min) Complex 03/02/2018 Patient Education: Patient Medication Summary Completed 03/02/2018 Care Plan: CHEST X-RAY 2VW FRONTAL&LATL LOINC : 26812-2 Pending 03/02/2018 Appointment: Anisha Whitmore [facility]el[facility] [phone] [facility] [place] (15 min) Moderate 02/19/2018 Visit Plan: Left hand/thumb pain - The pt is to use prn antiinflammatories to manage acute pain. The patient is to call the office if the pain is worsening or does not improve. 01/01/2018 Appointment: Anisha Whitmore [facility]Ptel: [phone] [facility] [place] (15 min) Moderate 01/01/2018 Patient Education: Patient Medication Summary Completed 01/01/2018 Care Plan: X-RAY EXAM OF HAND LOINC : 92649-0 Pending 01/01/2018 Visit Plan: Fatigue, malaise, joint complaints - improved since finishing doxy - will have pt monitor symptoms and notify clinic if symptoms return, or with any changes, questions, or concerns. 08/25/2017 Appointment: Anisha Whitmore WPtel: [address] [place] [address] (15 min) Moderate 08/25/2017 Patient Education: Patient Medication Summary Completed 08/25/2017 Appointment: Anisha Whitmore WPtel: [address] [place] [address] (30 min) Complex 08/22/2017 Visit Plan: Fatigue, [...] to cardiology if indicated 08/04/2017 Appointment: Anisha Whitmoretel: [address] [place] [address] New Patient 08/04/2017 Patient Education: Patient Medication Summary Completed 08/04/2017 Appointment: Anisha Whitmoretel: [address] [place] [address] New Patient 07/18/2017 Instructions Comment . Fatigue, [...]
--- OUTSIDE RECORDS SUMMARY | 2018-07-08 10:56 | XMS REPORT | CCD ---
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/[address]: 6227631 Quit over 10 years ago 08/04/[address]: 068840328 Never drinks alcohol 08/04/2017 Has the patient [...] Start Date Stop Date Status Fill Instructions clindamycin HCl 300 mg capsule RxNorm: 516265 1 Capsule(s) PO TID 05/07/2018 05/16/2018 Inactive Levaquin 500 mg tablet RxNorm: 263106 1 Tablet(s) PO daily 03/201804/09/2018 Inactive prednisone 10 mg tablet RxNorm: 729860 Tablet(s) PO UD 2018 No Stop Date Active 60,60,50,50,40,40,30,30,20,20,10,10 ipratropium-albuterol 0.5 mg-3 mg(2.5 mg base)/3 mL nebulization soln RxNorm: 6130641 3 Milliliter(s) INH qid prn 03/16/2018 No Stop Date Active Kenalog 40 mg/mL suspension for injection RxNorm: 2390973 Milliliter(s) Inj 03/16/2018 03/16/2018 Inactive Levaquin 500 mg tablet RxNorm: 434421 1 Tablet(s) PO daily 03/22/2018 Inactive ProAir HFA 90 mcg/actuation aerosol inhaler RxNorm: 6013565 1-2 Puff(s) INH Q4H as needed 03/04/2018 No Stop Date Active ceftriaxone 500 mg solution for injection RxNorm: 2372835 2 Milliliter(s) Inj 03/02/2018 03/02/2018 Inactive Kenalog 40 mg/mL suspension for injection RxNorm: 0382718 1.5 Milliliter(s) Inj 03/02/2018 03/02/2018 Inactive prednisone 20 mg tablet RxNorm: 331780 1 Tablet(s) PO BID 03/0203/06/2018 Inactive start tomorrow -1 q am and 1 q noon cefdinir 300 mg capsule RxNorm: 387133 1 Capsule(s) PO BID 03/08/2018 Inactive Zithromax Z-Jomar 250 mg tablet RxNorm: 992772 1 Tablet(s) PO UD 03/02/2018 03/06/2018 Inactive ipratropium-albuterol 0.5 mg-3 mg(2.5 mg base)/3 mL nebulization soln RxNorm: 9454658 3 Milliliter(s) INH qid prn 03/02/2018 03/15/2018 Inactive naproxen 500 mg tablet RxNorm: 565422 1 Tablet(s) PO BID 201701/05/2018 Inactive doxycycline hyclate 100 mg capsule RxNorm: 4553885 1 Capsule(s) PO BID 09/09/2017 09/22/2017 Inactive doxycycline hyclate 100 mg capsule RxNorm: 0809571 1 Capsule(s) PO BID 08/11/2017 08/14/2017 Inactive doxycycline hyclate 100 mg capsule RxNorm: 7344792 1 Capsule(s) PO BID 08/04/2017 08/10/2017 Inactive ProAir HFA 90 mcg/actuation aerosol inhaler RxNorm: 0360914 1-2 Puff(s) INH Q4H as needed No Start Date 03/03/2018 Inactive prednisone 10 mg tablet RxNorm: 884786 Tablet(s) PO No Start Date 03/15/2018 Inactive 60,60,50,50,40,40,30,30,20,20,10,10 Medication Administered Medication Codes Instructions Start Date Status Kenalog 40 mg/mL suspension for injection RxNorm: 0387308 Milliliter 03/16/2018 No longer Active Kenalog 40 mg/mL suspension for injection RxNorm: 8063887 1.5Milliliter 03/02/2018 No longer Active ceftriaxone 500 mg solution for injection RxNorm: 9364718 2Milliliter 03/02/2018 No longer Active Immunizations No [...] Code Result Date Ehrlichia Chaffeensis Antibody Igm 126387 EHRLICHIA CHAFFEENSIS IGM < 1:16 08/08/2017 Ehrlichia Chaffeensis Antibody Igg 060304 EHRLICHIA CHAFFEENSIS IGG 1:256 08/08/2017 [place] Spotted Fever Igg/Igm 033583 [place] SPOTTED FEVER IGM EIA . 08/08/2017 [place] Spotted Fever Igg/Igm 148584 RMSF, IGM 0.42 index 08/08/2017 [place] Spotted Fever Igg/Igm 103992 [place] SPOTTED FEVER IGG EIA FLEX . 08/08/2017 [place] Spotted Fever Igg/Igm 941876 RMSF, IGG SCREEN-FLEX Negative 08/08/2017 Tsh Ord6 TSH (3rd IS) 3.72 uIU/mL 08/05/2017 Free T4 Cfy645 FREE T4 0.98 ng/dL 08/05/2017 Lymes Disease Total Antibodies With Western Blot Reflex 796983 B. BURGDORFERI, IGG/IGM 0.176 08/05/2017 Lymes Disease Total Antibodies With Western Blot Reflex 265973 08/05/2017 %Hba1C Dbb008 % HbA1c 18714-8 5.6 % 08/04/2017 %Hba1C Osg130 Gluc Ave 114 mg/dL 08/04/2017 Comp Metabolic Qwd929 NA 136 mEq/L 08/04/2017 Comp Metabolic Yiq288 K 4.4 mEq/L 08/04/2017 Comp Metabolic Wqo629 CL 100 mEq/L 08/04/2017 Comp Metabolic Iic752 CO2 27.0 mEq/L 08/04/2017 Comp Metabolic Phz690 ANION GAP 13 08/04/2017 Comp Metabolic Zoj939 GLUCOSE 95 mg/dL 08/04/2017 Comp Metabolic Uej916 Creat 0.8 mg/dL 08/04/2017 Comp Metabolic Mua364 eGFR 105 ml/min/1.73m2 08/04/2017 Comp Metabolic Dgt111 BUN 28 mg/dL 08/04/2017 Comp Metabolic Ckt707 B/C Ratio 35.0 Ratio 08/04/2017 Comp Metabolic Bkl277 CALCIUM 8.7 mg/dL 08/04/2017 Comp Metabolic Pop465 ALK PHOS 61 U/L 08/04/2017 Comp Metabolic Gpw435 AST(SGOT) 21 U/L 08/04/2017 Comp Metabolic Spj413 ALT(SGPT) 18 U/L 08/04/2017 Comp Metabolic Ohr827 BILI T 0.7 mg/dL 08/04/2017 Comp Metabolic Kge869 ALBUMIN 4.5 g/dL 08/04/2017 Comp Metabolic Ase526 TPRO 6.7 g/dL 08/04/2017 Comp Metabolic Nqx358 GLOB 2.3 g/dL 08/04/2017 Comp Metabolic Hdl406 A/G Ratio 2.0 Ratio 08/04/2017 Comp Metabolic Pyv721 Osmo 277 mOsmo 08/04/2017 Cbc With Differential [...] 31.1 pg 08/04/2017 Cbc With Differential Ord2 [place]% 8.7 % 08/04/2017 Cbc With Differential Ord2 [...] 1.49 K/ul 08/04/2017 Cbc With Differential Ord2 [place] ABS# 0.6 K/ul 08/04/2017 Cbc With Differential [...] clear 08/25/2017 None Full Exam - General 1995 Ears/Nose/Throat lips/teeth/gingiva Overall: benign lips 08/25/2017 None [...] clear 08/04/2017 None Full Exam - General 1995 Ears/Nose/Throat [...] CPT-4: J0696 03/02/2018 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 CPT-4: 23540 08/04/2017 Vital Signs Date Vital 05/07/2018 Blood Pressure 1: 144/76 Code : 8480-6 BMI: 26.9 Code : 49573-4 Heart Rate 1 : 77 bpm Height: 5'7" SpO2: 98% Weight: 172 lbs 03/16/2018 Blood Pressure 1: 122/68 Code : 8480-6 BMI: 26.6 Code : 45452-6 Heart Rate 1 : 88 bpm Height: 5'7" SpO2: 96% Weight: 170 lbs 03/02/2018 Blood Pressure 1: 140/80 Code : 8480-6 BMI: 26.5 Code : 76258-9 Heart Rate 1 : 87 bpm Height: 5'7" SpO2: 95% Temperature: 36.7 (C) / 98.1 (F) Weight: 169 lbs 01/01/2018 Blood Pressure 1: 134/66 Code : 8480-6 BMI: 26.8 Code : 74503-4 Heart Rate 1 : 65 bpm Height: 5'7" SpO2: 99% Weight: 171 lbs 08/25/2017 Blood Pressure 1: 136/72 Code : 8480-6 BMI: 27.4 Code : 94148-0 Heart Rate 1 : 70 bpm Height: 5'7" SpO2: 96% Weight: 175 lbs 08/04/2017 Blood Pressure 1: 130/78 Code : 8480-6 BMI: 27.6 Code : 00340-4 Heart Rate 1 : 65 bpm Height: [...] data Encounters Encounter Performer Location Codes Date 38140 EST. PATIENT, LEVEL IV Diagnosis: Periapical abscess without sinus[ICD10: K04.7] Anisha Oretga MD, [facility] CPT-4: 50333 05/07/2018 04201 EST. PATIENT, LEVEL IV Diagnosis: Cough[ICD10: R05] Diagnosis: Pneumonia, unspecified organism[ICD10: J18.9] Anisha Ortega MD, [facility] CPT-4: 45752 03/16/2018 ([id number]) 25251 EST. PATIENT, LEVEL III Diagnosis: Cough[ICD10: R05] Diagnosis: Pneumonia, unspecified organism[ICD10: J18.9] Reta Ortega MD, [facility] CPT-4: 34632 03/02/2018 12999 EST. PATIENT, LEVEL III Diagnosis: Pain in left finger(s)[ICD10: M79.645] Diagnosis: Pain in left hand[ICD10: M79.642] Anisha Ortega MD, [facility] CPT -4: 08716 01/01/2018 58212 EST. PATIENT, LEVEL III Diagnosis: Other fatigue[ICD10: R53.83] Anisha Ortega MD, [facility] CPT-4 : 01343 08/25/2017 OFFICE VISIT, NEW - LEVEL 3 Diagnosis: Other malaise[ICD10: R53.81] Diagnosis: Other fatigue[ICD10: R53.83] Diagnosis: Other hypoglycemia[ICD10: E16.1] Diagnosis: Actinic keratosis[ICD10: L57.0] Diagnosis: Cardiac murmur, unspecified[ICD10: R01.1] Anisha Ortega MD, [facility] CPT-4: 53337 08/04/2017 Plan of Care Planned Activity Notes Codes Status Date Visit Plan: Dental abscess - will start on abx - pt is to follow up with dentist ROMARIO. Pt is to notify clinic if symptoms do not improve, if they worsen, or with any changes, questions, or concerns. 05/07/2018 Appointment: Anisha Whitmore WPtel: [address] [place], [place] [phone] (30 min) Complex 05/07/2018 Patient Education: Patient Medication Summary Completed 05/07/2018 Appointment: Anisha Whitmore WPtel: [address] [place] [address] [place] (15 min) Moderate 03/23/2018 Visit Plan: [...] this illness. 03/16/2018 Appointment: [facility]el[facility] [place] (15 min) Moderate 03/16/2018 Patient Education: Patient Medication Summary Completed 03/16/2018 Care Plan: CHEST X-RAY 2VW FRONTAL&LATL LOINC : 58467-3 Pending 03/16/2018 Visit Plan: Pneumonia - Pt has been diagnosed with pneumonia by physical exam. A chest xray has been ordered as have antibiotics. The pt is aware of the diagnosis and the need for acute treatment of this illness. 03/02/2018 Appointment: Reta Gonzalez [facility]Ptel[phone] [place] (30 min) Complex 03/02/2018 Patient Education: Patient Medication Summary Completed 03/02/2018 Care Plan: CHEST X-RAY 2VW FRONTAL&LATL LOINC : 49131-5 Pending 03/02/2018 Appointment: Anisha Whitmore WPtel: [address] [place] [address] [place] (15 min) Moderate 02/19/2018 Visit Plan: Left hand/thumb pain - The pt is to use prn antiinflammatories to manage acute pain. The patient is to call the office if the pain is worsening or does not improve. 01/01/2018 Appointment: Anisha Whitmore [facility]Ptel: [facility] [place] (15 min) Moderate 01/01/2018 Patient Education: Patient Medication Summary Completed 01/01/2018 Care Plan: X-RAY EXAM OF HAND LOINC : 76656-9 Pending 01/01/2018 Visit Plan: Fatigue, malaise, joint complaints - improved since finishing doxy - will have pt monitor symptoms and notify clinic if symptoms return, or with any changes, questions, or concerns. 08/25/2017 Appointment: Anisha Whitmore WPtel: [address] [place] [address] (15 min) Moderate 08/25/2017 Patient Education: Patient Medication Summary Completed 08/25/2017 Appointment: Anisha Whitmore WPtel: [address] [place] [address] (30 min) Complex 08/22/2017 Visit Plan: Fatigue, [...] if indicated 08/04/2017 Appointment: Anisha Whitmore WPtel: [address] [place] [address] New Patient 08/04/2017 Patient Education: Patient Medication Summary Completed 08/04/2017 Appointment: Anisha Whitmoretel: [address] [place], [place] [phone] New Patient 07/18/2017 Instructions Comment . Fatigue, [...]
--- OUTSIDE RECORDS SUMMARY | 2018-07-08 10:56 | XMS REPORT | CCD ---
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 08/04/[address]: 1666737 Quit over 10 years ago 08/04/[address]: 829540866 Never drinks alcohol 08/04/2017 Has the patient [...] Instructions clindamycin HCl 300 mg capsule RxNorm: 952024 1 Capsule(s) PO TID 05/07/2018 05/16/2018 Inactive Levaquin 500 mg tablet RxNorm: 777251 1 Tablet(s) PO daily 03/201804/09/2018 Inactive prednisone 10 mg tablet RxNorm: 768621 Tablet(s) PO UD 2018 No Stop Date Active 60,60,50,50,40,40,30,30,20,20,10,10 ipratropium-albuterol 0.5 mg-3 mg(2.5 mg base)/3 mL nebulization soln RxNorm: 9817243 3 Milliliter(s) INH qid prn 03/16/2018 No Stop Date Active Kenalog 40 mg/mL suspension for injection RxNorm: 8401540 Milliliter(s) Inj 03/16/2018 03/16/2018 Inactive Levaquin 500 mg tablet RxNorm: 206218 1 Tablet(s) PO daily 03/22/2018 Inactive ProAir HFA 90 mcg/actuation aerosol inhaler RxNorm: 1171603 1-2 Puff(s) INH Q4H as needed 03/04/2018 No Stop Date Active ceftriaxone 500 mg solution for injection RxNorm: 8944806 2 Milliliter(s) Inj 03/02/2018 03/02/2018 Inactive Kenalog 40 mg/mL suspension for injection RxNorm: 2945492 1.5 Milliliter(s) Inj 03/02/2018 03/02/2018 Inactive prednisone 20 mg tablet RxNorm: 856087 1 Tablet(s) PO BID 03/0203/06/2018 Inactive start tomorrow -1 q am and 1 q noon cefdinir 300 mg capsule RxNorm: 030085 1 Capsule(s) PO BID 03/08/2018 Inactive Zithromax Z-Jomar 250 mg tablet RxNorm: 020430 1 Tablet(s) PO UD 03/02/2018 03/06/2018 Inactive ipratropium-albuterol 0.5 mg-3 mg(2.5 mg base)/3 mL nebulization soln RxNorm: 0617407 3 Milliliter(s) INH qid prn 03/02/2018 03/15/2018 Inactive naproxen 500 mg tablet RxNorm: 088900 1 Tablet(s) PO BID 201701/05/2018 Inactive doxycycline hyclate 100 mg capsule RxNorm: 3433603 1 Capsule(s) PO BID 09/09/2017 09/22/2017 Inactive doxycycline hyclate 100 mg capsule RxNorm: 2236457 1 Capsule(s) PO BID 08/11/2017 08/14/2017 Inactive doxycycline hyclate 100 mg capsule RxNorm: 8465136 1 Capsule(s) PO BID 08/04/2017 08/10/2017 Inactive ProAir HFA 90 mcg/actuation aerosol inhaler RxNorm: 9431436 1-2 Puff(s) INH Q4H as needed No Start Date 03/03/2018 Inactive prednisone 10 mg tablet RxNorm: 043417 Tablet(s) PO No Start Date 03/15/2018 Inactive 60,60,50,50,40,40,30,30,20,20,10,10 Medication Administered Medication Codes Instructions Start Date Status Kenalog 40 mg/mL suspension for injection RxNorm: 2591923 Milliliter 03/16/2018 No longer Active Kenalog 40 mg/mL suspension for injection RxNorm: 1912724 1.5Milliliter 03/02/2018 No longer Active ceftriaxone 500 mg solution for injection RxNorm: 5261888 2Milliliter 03/02/2018 No longer Active Immunizations No [...] Code Result Date Ehrlichia Chaffeensis Antibody Igm 745741 EHRLICHIA CHAFFEENSIS IGM < 1:16 08/08/2017 Ehrlichia Chaffeensis Antibody Igg 981497 EHRLICHIA CHAFFEENSIS IGG 1:256 08/08/2017 [place] Spotted Fever Igg/Igm 698588 [place] SPOTTED FEVER IGM EIA . 08/08/2017 [place] Spotted Fever Igg/Igm 415694 RMSF, IGM 0.42 index 08/08/2017 [place] Spotted Fever Igg/Igm 924100 [place] SPOTTED FEVER IGG EIA FLEX . 08/08/2017 [place] Spotted Fever Igg/Igm 810402 RMSF, IGG SCREEN-FLEX Negative 08/08/2017 Tsh Ord6 TSH (3rd IS) 3.72 uIU/mL 08/05/2017 Free T4 Jlu328 FREE T4 0.98 ng/dL 08/05/2017 Lymes Disease Total Antibodies With Western Blot Reflex [id number] B. BURGDORFERI, IGG/IGM 0.176 08/05/2017 Lymes Disease Total Antibodies With Western Blot Reflex [id number] 08/05/2017 %Hba1C Qih483 % HbA1c 57670-5 5.6 % 08/04/2017 %Hba1C Gsr256 Gluc Ave 114 mg/dL 08/04/2017 Comp Metabolic Hiu367 NA 136 mEq/L 08/04/2017 Comp Metabolic Zin799 K 4.4 mEq/L 08/04/2017 Comp Metabolic Dcz655 CL 100 mEq/L 08/04/2017 Comp Metabolic Jzm695 CO2 27.0 mEq/L 08/04/2017 Comp Metabolic Dsj866 ANION GAP 13 08/04/2017 Comp Metabolic Gee401 GLUCOSE 95 mg/dL 08/04/2017 Comp Metabolic Lln502 Creat 0.8 mg/dL 08/04/2017 Comp Metabolic Dbf209 eGFR 105 ml/min/1.73m2 08/04/2017 Comp Metabolic Puo203 BUN 28 mg/dL 08/04/2017 Comp Metabolic Fha021 B/C Ratio 35.0 Ratio 08/04/2017 Comp Metabolic Nxz172 CALCIUM 8.7 mg/dL 08/04/2017 Comp Metabolic Hhm902 ALK PHOS 61 U/L 08/04/2017 Comp Metabolic Icg710 AST(SGOT) 21 U/L 08/04/2017 Comp Metabolic Acl253 ALT(SGPT) 18 U/L 08/04/2017 Comp Metabolic Uza373 BILI T 0.7 mg/dL 08/04/2017 Comp Metabolic Zpr674 ALBUMIN 4.5 g/dL 08/04/2017 Comp Metabolic Bgj763 TPRO 6.7 g/dL 08/04/2017 Comp Metabolic Zki830 GLOB 2.3 g/dL 08/04/2017 Comp Metabolic Zsl553 A/G Ratio 2.0 Ratio 08/04/2017 Comp Metabolic Fiw665 Osmo 277 mOsmo 08/04/2017 Cbc With Differential [...] 31.1 pg 08/04/2017 Cbc With Differential Ord2 [place]% 8.7 % 08/04/2017 Cbc With Differential Ord2 [...] 1.49 K/ul 08/04/2017 Cbc With Differential Ord2 [place] ABS# 0.6 K/ul 08/04/2017 Cbc With Differential [...] CPT-4: J0696 03/02/2018 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 CPT-4: 14210 08/04/2017 Vital Signs Date Vital 05/07/2018 Blood Pressure 1: 144/76 Code : 8480-6 BMI: 26.9 Code : 97125-9 Heart Rate 1 : 77 bpm Height: 5'7" SpO2: 98% Weight: 172 lbs 03/16/2018 Blood Pressure 1: 122/68 Code : 8480-6 BMI: 26.6 Code : 27112-5 Heart Rate 1 : 88 bpm Height: 5'7" SpO2: 96% Weight: 170 lbs 03/02/2018 Blood Pressure 1: 140/80 Code : 8480-6 BMI: 26.5 Code : 43419-6 Heart Rate 1 : 87 bpm Height: 5'7" SpO2: 95% Temperature: 36.7 (C) / 98.1 (F) Weight: 169 lbs 01/01/2018 Blood Pressure 1: 134/66 Code : 8480-6 BMI: 26.8 Code : 21909-0 Heart Rate 1 : 65 bpm Height: 5'7" SpO2: 99% Weight: 171 lbs 08/25/2017 Blood Pressure 1: 136/72 Code : 8480-6 BMI: 27.4 Code : 64159-7 Heart Rate 1 : 70 bpm Height: 5'7" SpO2: 96% Weight: 175 lbs 08/04/2017 Blood Pressure 1: 130/78 Code : 8480-6 BMI: 27.6 Code : 39378-4 Heart Rate 1 : 65 bpm Height: [...] data Encounters Encounter Performer Location Codes Date 00164 EST. PATIENT, LEVEL IV Diagnosis: Periapical abscess without sinus[ICD10: K04.7] Anisha Ortega MD, [facility] CPT-4: 13697 05/07/2018 22964 EST. PATIENT, LEVEL IV Diagnosis: Cough[ICD10: R05] Diagnosis: Pneumonia, unspecified organism[ICD10: J18.9] Anisha Ortega MD, [facility] CPT-4: 28668 03/16/2018 ([id number]) 51761 EST. PATIENT, LEVEL III Diagnosis: Cough[ICD10: R05] Diagnosis: Pneumonia, unspecified organism[ICD10: J18.9] Reta Ortega MD, [facility] CPT-4: 31346 03/02/2018 75934 EST. PATIENT, LEVEL III Diagnosis: Pain in left finger(s)[ICD10: M79.645] Diagnosis: Pain in left hand[ICD10: M79.642] Anisha Ortega MD, [facility] CPT -4: 88419 01/01/2018 74811 EST. PATIENT, LEVEL III Diagnosis: Other fatigue[ICD10: R53.83] nAisha Ortega MD, [facility] CPT-4 : 37805 08/25/2017 OFFICE VISIT, NEW - LEVEL 3 Diagnosis: Other malaise[ICD10: R53.81] Diagnosis: Other fatigue[ICD10: R53.83] Diagnosis: Other hypoglycemia[ICD10: E16.1] Diagnosis: Actinic keratosis[ICD10: L57.0] Diagnosis: Cardiac murmur, unspecified[ICD10: R01.1] Anisha Ortega MD, [facility] CPT-4: 19937 08/04/2017 Plan of Care Planned Activity Notes Codes Status Date Visit Plan: Dental abscess - will start on abx - pt is to follow up with dentist ROMARIO. Pt is to notify clinic if symptoms do not improve, if they worsen, or with any changes, questions, or concerns. 05/07/2018 Appointment: Anisha Whitmore WPtel: [address] [place], [place] [phone] (30 min) Complex 05/07/2018 Patient Education: Patient Medication Summary Completed 05/07/2018 Appointment: Anisha Whitmore WPtel: [address] [place], [place] [phone] [place] (15 min) Moderate 03/23/2018 Visit Plan: [...] this illness. 03/16/2018 Appointment: Anisha Whitmore [facility]el[facility] [place] (15 min) Moderate 03/16/2018 Patient Education: Patient Medication Summary Completed 03/16/2018 Care Plan: CHEST X-RAY 2VW FRONTAL&LATL LOINC : 05467-3 Pending 03/16/2018 Visit Plan: Pneumonia - Pt has been diagnosed with pneumonia by physical exam. A chest xray has been ordered as have antibiotics. The pt is aware of the diagnosis and the need for acute treatment of this illness. 03/02/2018 Appointment: Reta Gonzalez WPtel[phone] [place] (30 min) Complex 03/02/2018 Patient Education: Patient Medication Summary Completed 03/02/2018 Care Plan: CHEST X-RAY 2VW FRONTAL&LATL LOINC : 42942-1 Pending 03/02/2018 Appointment: Anisha Whitmore WPtel: [address] [place], [place] [phone] [place] (15 min) Moderate 02/19/2018 Visit Plan: Left hand/thumb pain - The pt is to use prn antiinflammatories to manage acute pain. The patient is to call the office if the pain is worsening or does not improve. 01/01/2018 Appointment: Anisha Whitmore WPtel[facility] [place] (15 min) Moderate 01/01/2018 Patient Education: Patient Medication Summary Completed 01/01/2018 Care Plan: X-RAY EXAM OF HAND LOINC : 43926-8 Pending 01/01/2018 Visit Plan: Fatigue, malaise, joint complaints - improved since finishing doxy - will have pt monitor symptoms and notify clinic if symptoms return, or with any changes, questions, or concerns. 08/25/2017 Appointment: Anisha Whitmore WPtel: [address] [place] [address] (15 min) Moderate 08/25/2017 Patient Education: Patient Medication Summary Completed 08/25/2017 Appointment: Anisha Whitmore WPtel: [address] [place] [address] (30 min) Complex 08/22/2017 Visit Plan: Fatigue, [...] if indicated 08/04/2017 Appointment: Anisha Whitmore WPtel: [address] [place] [address] New Patient 08/04/2017 Patient Education: Patient Medication Summary Completed 08/04/2017 Appointment: Anisha Whitmoretel: [address] [place], [place] [phone] New Patient 07/18/2017 Instructions Comment . Fatigue, [...]
--- OUTSIDE RECORDS SUMMARY | 2018-07-08 10:57 | XMS REPORT | CCD ---
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 Unknown Has never used illegal drugs 08/04/2017 Allergies, Adverse Reactions, Alerts Substance Reaction Codes Entered Date Inactivated Date Status NO KNOWN DRUG ALLERGIES Unknown 08/04/2017 No Inactive Date Active Past Medical History Illness Codes Condition Status Onset Date Resolved Date Cough ICD-9: 786.2 ICD-10: R05 Active 03/02/2018 [...] Problems Condition Codes Effective Dates Condition Status Cough ICD-9: 786.2 ICD-10: R05 03/02/2018 Active [...] Start Date Stop Date Status Fill Instructions Levaquin 500 mg tablet RxNorm: 831667 1 Tablet(s) PO daily 03/201804/09/2018 Active prednisone 10 mg tablet RxNorm: 701542 Tablet(s) PO UD 2018 No Stop Date Active 60,60,50,50,40,40,30,30,20,20,10,10 ipratropium-albuterol 0.5 mg-3 mg(2.5 mg base)/3 mL nebulization soln RxNorm: 3847598 3 Milliliter(s) INH qid prn 03/16/2018 No Stop Date Active Kenalog 40 mg/mL suspension for injection RxNorm: 2872820 Milliliter(s) Inj 03/16/2018 03/16/2018 Inactive Levaquin 500 mg tablet RxNorm: 695812 1 Tablet(s) PO daily 03/22/2018 Inactive ProAir HFA 90 mcg/actuation aerosol inhaler RxNorm: 9092829 1-2 Puff(s) INH Q4H as needed 03/04/2018 No Stop Date Active ceftriaxone 500 mg solution for injection RxNorm: 2964651 2 Milliliter(s) Inj 03/02/2018 03/02/2018 Inactive Kenalog 40 mg/mL suspension for injection RxNorm: 3478488 1.5 Milliliter(s) Inj 03/02/2018 03/02/2018 Inactive prednisone 20 mg tablet RxNorm: 252410 1 Tablet(s) PO BID 03/0203/06/2018 Inactive start tomorrow -1 q am and 1 q noon cefdinir 300 mg capsule RxNorm: 969898 1 Capsule(s) PO BID 03/08/2018 Inactive Zithromax Z-Jomar 250 mg tablet RxNorm: 112009 1 Tablet(s) PO UD 03/02/2018 03/06/2018 Inactive ipratropium-albuterol 0.5 mg-3 mg(2.5 mg base)/3 mL nebulization soln RxNorm: 4202456 3 Milliliter(s) INH qid prn 03/02/2018 03/15/2018 Inactive naproxen 500 mg tablet RxNorm: 649719 1 Tablet(s) PO BID 201701/05/2018 Inactive doxycycline hyclate 100 mg capsule RxNorm: 6090413 1 Capsule(s) PO BID 09/09/2017 09/22/2017 Inactive doxycycline hyclate 100 mg capsule RxNorm: 2886913 1 Capsule(s) PO BID 08/11/2017 08/14/2017 Inactive doxycycline hyclate 100 mg capsule RxNorm: 1813446 1 Capsule(s) PO BID 08/04/2017 08/10/2017 Inactive ProAir HFA 90 mcg/actuation aerosol inhaler RxNorm: 5054393 1-2 Puff(s) INH Q4H as needed No Start Date 03/03/2018 Inactive prednisone 10 mg tablet RxNorm: 130002 Tablet(s) PO No Start Date 03/15/2018 Inactive 60,60,50,50,40,40,30,30,20,20,10,10 Medication Administered Medication Codes Instructions Start Date Status Kenalog 40 mg/mL suspension for injection RxNorm: 5960993 Milliliter 03/16/2018 No longer Active Kenalog 40 mg/mL suspension for injection RxNorm: 7846258 1.5Milliliter 03/02/2018 No longer Active ceftriaxone 500 mg solution for injection RxNorm: 0383495 2Milliliter 03/02/2018 No longer Active Immunizations No Immunization data Assessments Condition Codes Effective Dates Pneumonia, unspecified organism ICD-10: J18.9 ICD-9: 486 03/16/2018 Cough ICD-10: R05 ICD-9: 786.2 03/16/2018 Pain in left finger(s) ICD-10: M79.645 ICD-9: 729.5 01/01/2018 Pain in left hand ICD-10: M79.642 ICD-9: 729.5 01/01/2018 Other fatigue ICD-10: R53.83 ICD-9: 780.79 08/25/2017 Other malaise ICD-10: R53.81 ICD-9: 780.79 08/04/2017 Other hypoglycemia ICD-10: E16.1 ICD-9: 251.1 08/04/2017 Actinic keratosis ICD-10: L57.0 ICD-9: 702.0 08/04/2017 Cardiac murmur, unspecified ICD-10: R01.1 ICD-9: 785.2 08/04/2017 Reason For Visit Reason For Visit Effective Dates Notes cough 03/16/2018 cough 03/02/2018 thumb and hand pain 01/01/2018 fatigue 08/25/2017 fatigue 08/04/2017 Results Observation Observation Code Item Item Code Result Date [place] Spotted Fever Igg/Igm 939645 [place] SPOTTED FEVER IGM EIA . 08/08/2017 [place] Spotted Fever Igg/Igm 423153 RMSF, IGM 0.42 index 08/08/2017 [place] Spotted Fever Igg/Igm 389976 [place] SPOTTED FEVER IGG EIA FLEX . 08/08/2017 [place] Spotted Fever Igg/Igm 261128 RMSF, IGG SCREEN-FLEX Negative 08/08/2017 Ehrlichia Chaffeensis Antibody Igg 799696 EHRLICHIA CHAFFEENSIS IGG 1:256 08/08/2017 Ehrlichia Chaffeensis Antibody Igm 764617 EHRLICHIA CHAFFEENSIS IGM < 1:16 08/08/2017 Tsh Ord6 TSH (3rd IS) 3.72 uIU/mL 08/05/2017 Lymes Disease Total Antibodies With Western Blot Reflex [id number] B. BURGDORFERI, IGG/IGM 0.176 08/05/2017 Lymes Disease Total Antibodies With Western Blot Reflex 367235 08/05/2017 Free T4 Eec511 FREE T4 0.98 ng/dL 08/05/2017 %Hba1C Dvt831 % HbA1c 62781-8 5.6 % 08/04/2017 %Hba1C Vgq396 Gluc Ave 114 mg/dL 08/04/2017 Lipid Ord30 CHOL 209 mg/dL 08/04/2017 Lipid Ord30 HDL 56.0 mg/dl 08/04/2017 Lipid Ord30 TRIG 98 mg/dL 08/04/2017 Lipid Ord30 LDL 133 mg/dL 08/04/2017 Lipid Ord30 C/HDL 3.7 Ratio 08/04/2017 Cbc With Differential Ord2 WBC 7.02 [...] 31.1 pg 08/04/2017 Cbc With Differential Ord2 [place]% 8.7 % 08/04/2017 Cbc With Differential Ord2 [...] 1.49 K/ul 08/04/2017 Cbc With Differential Ord2 [place] ABS# 0.6 K/ul 08/04/2017 Cbc With Differential Ord2 Eos ABS# 0.2 K/ul 08/04/2017 Cbc With Differential Ord2 Baso ABS# 0.0 K/ul 08/04/2017 Comp Metabolic Csu793 NA 136 mEq/L 08/04/2017 Comp Metabolic Psl000 K 4.4 mEq/L 08/04/2017 Comp Metabolic Enp568 CL 100 mEq/L 08/04/2017 Comp Metabolic Dov969 CO2 27.0 mEq/L 08/04/2017 Comp Metabolic Qiq007 ANION GAP 13 08/04/2017 Comp Metabolic Ktr967 GLUCOSE 95 mg/dL 08/04/2017 Comp Metabolic Erz344 Creat 0.8 mg/dL 08/04/2017 Comp Metabolic Wnl222 eGFR 105 ml/min/1.73m2 08/04/2017 Comp Metabolic Gyl452 BUN 28 mg/dL 08/04/2017 Comp Metabolic Tfj112 B/C Ratio 35.0 Ratio 08/04/2017 Comp Metabolic Ljy986 CALCIUM 8.7 mg/dL 08/04/2017 Comp Metabolic Nas174 ALK PHOS 61 U/L 08/04/2017 Comp Metabolic Hyq401 AST(SGOT) 21 U/L 08/04/2017 Comp Metabolic Fct276 ALT(SGPT) 18 U/L 08/04/2017 Comp Metabolic Bkw028 BILI T 0.7 mg/dL 08/04/2017 Comp Metabolic Aqz129 ALBUMIN 4.5 g/dL 08/04/2017 Comp Metabolic Eqw447 TPRO 6.7 g/dL 08/04/2017 Comp Metabolic Uhj872 GLOB 2.3 g/dL 08/04/2017 Comp Metabolic Jgq166 A/G Ratio 2.0 Ratio 08/04/2017 Comp Metabolic Udg447 Osmo 277 mOsmo 08/04/2017 Review of Systems System Result Effective Dates Constitutional recent illness 03/16/2018 Constitutional No night [...] CPT-4: J0696 03/02/2018 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 CPT-4: 75823 08/04/2017 Vital Signs Date Vital 03/16/2018 Blood Pressure 1: 122/68 Code : 8480-6 BMI: 26.6 Code : 04289-1 Heart Rate 1 : 88 bpm Height: 5'7" SpO2: 96% Weight: 170 lbs 03/02/2018 Blood Pressure 1: 140/80 Code : 8480-6 BMI: 26.5 Code : 45934-5 Heart Rate 1 : 87 bpm Height: 5'7" SpO2: 95% Temperature: 36.7 (C) / 98.1 (F) Weight: 169 lbs 01/01/2018 Blood Pressure 1: 134/66 Code : 8480-6 BMI: 26.8 Code : 18943-9 Heart Rate 1 : 65 bpm Height: 5'7" SpO2: 99% Weight: 171 lbs 08/25/2017 Blood Pressure 1: 136/72 Code : 8480-6 BMI: 27.4 Code : 41416-5 Heart Rate 1 : 70 bpm Height: 5'7" SpO2: 96% Weight: 175 lbs 08/04/2017 Blood Pressure 1: 130/78 Code : 8480-6 BMI: 27.6 Code : 21924-2 Heart Rate 1 : 65 bpm Height: 5'7" SpO2: 97% Weight: 176 lbs Functional Status No Functional Status data History of Present Illness Symptom Name Status Result Effective Date Notes Quality acute 2018 None Quality intermittent 03/16/2018 [...] data Encounters Encounter Performer Location Codes Date 64001 EST. PATIENT, LEVEL IV Diagnosis: Cough[ICD10: R05] Diagnosis: Pneumonia, unspecified organism[ICD10: J18.9] Anisha Ortega MD, [facility] CPT-4: 60436 03/16/2018 ([id number]) 84884 EST. PATIENT, LEVEL III Diagnosis: Cough[ICD10: R05] Diagnosis: Pneumonia, unspecified organism[ICD10: J18.9] Reta Ortega MD, [facility] CPT-4: 41488 03/02/2018 23661 EST. PATIENT, LEVEL III Diagnosis: Pain in left finger(s)[ICD10: M79.645] Diagnosis: Pain in left hand[ICD10: M79.642] Anisha Ortega MD, [facility] CPT -4: 63067 01/01/2018 26585 EST. PATIENT, LEVEL III Diagnosis: Other fatigue[ICD10: R53.83] Anisha Ortega MD, [facility] CPT-4 : 76342 08/25/2017 OFFICE VISIT, NEW - LEVEL 3 Diagnosis: Other malaise[ICD10: R53.81] Diagnosis: Other fatigue[ICD10: R53.83] Diagnosis: Other hypoglycemia[ICD10: E16.1] Diagnosis: Actinic keratosis[ICD10: L57.0] Diagnosis: Cardiac murmur, unspecified[ICD10: R01.1] Anisha Ortega MD, [facility] CPT-4: 29692 08/04/2017 Plan of Care Planned Activity Notes Codes Status Date Appointment: Anisha Whitmore WPtel: [address] [place], [place] [phone] (15 min) Moderate 03/23/2018 Visit Plan: Pneumonia [...] this illness. 03/16/2018 Appointment: Anisha Whitmore WPtel: [facility] (15 min) Moderate 03/16/2018 Patient Education: Patient Medication Summary Completed 03/16/2018 Care Plan: CHEST X-RAY 2VW FRONTAL&LATL LOINC : 59499-3 Pending 03/16/2018 Visit Plan: Pneumonia - Pt has been diagnosed with pneumonia by physical exam. A chest xray has been ordered as have antibiotics. The pt is aware of the diagnosis and the need for acute treatment of this illness. 03/02/2018 Appointment: Reta Gonzalez WPtel: [phone] [place] (30 min) Complex 03/02/2018 Patient Education: Patient Medication Summary Completed 03/02/2018 Care Plan: CHEST X-RAY 2VW FRONTAL&LATL LOINC : 85993-7 Pending 03/02/2018 Appointment: Anisha Whitmore WPtel: [facility] [place] (15 min) Moderate 02/19/2018 Visit Plan: Left hand/thumb pain - The pt is to use prn antiinflammatories to manage acute pain. The patient is to call the office if the pain is worsening or does not improve. 01/01/2018 Appointment: Anisha Whitmore WPtel: [facility] [place] (15 min) Moderate 01/01/2018 Patient Education: Patient Medication Summary Completed 01/01/2018 Care Plan: X-RAY EXAM OF HAND LOINC : 54003-9 Pending 01/01/2018 Visit Plan: Fatigue, malaise, joint complaints - improved since finishing doxy - will have pt monitor symptoms and notify clinic if symptoms return, or with any changes, questions, or concerns. 08/25/2017 Appointment: Anisha Whitmore WPtel: [address] [place] [address] (15 min) Moderate 08/25/2017 Patient Education: Patient Medication Summary Completed 08/25/2017 Appointment: Anisha Whitmore WPtel: [address] [place] [address] (30 min) Complex 08/22/2017 Visit Plan: Fatigue, [...] if indicated 08/04/2017 Appointment: Anisha Whitmore WPtel: [address] [place] [address] New Patient 08/04/2017 Patient Education: Patient Medication Summary Completed 08/04/2017 Appointment: Anisha Whitmore WPtel: [address] [place] [address] New Patient 07/18/2017 Instructions Comment . Fatigue, [...]
--- OUTSIDE RECORDS SUMMARY | 2018-07-08 10:58 | XMS REPORT | CCD ---
Author Author Anisha Whitmore MD, 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 08/04/[address]: 3875296 Quit over 10 years ago 08/04/[address]: 685046845 Never drinks alcohol 08/04/2017 Has the patient [...] Start Date Stop Date Status Fill Instructions Kenalog 40 mg/mL suspension for injection RxNorm: 0375991 Milliliter(s) Inj 03/16/2018 03/16/2018 Inactive prednisone 10 mg tablet RxNorm: 845521 Tablet(s) PO UD 2018 No Stop Date Active 60,60,50,50,40,40,30,30,20,20,10,10 ipratropium-albuterol 0.5 mg-3 mg(2.5 mg base)/3 mL nebulization soln RxNorm: 9706525 3 Milliliter(s) INH qid prn 03/16/2018 No Stop Date Active Levaquin 500 mg tablet RxNorm: 709585 1 Tablet(s) PO daily 03/22/2018 Active ProAir HFA 90 mcg/actuation aerosol inhaler RxNorm: 4050732 1-2 Puff(s) INH Q4H as needed 03/04/2018 No Stop Date Active ceftriaxone 500 mg solution for injection RxNorm: 1752884 2 Milliliter(s) Inj 03/02/2018 03/02/2018 Inactive Kenalog 40 mg/mL suspension for injection RxNorm: 6911974 1.5 Milliliter(s) Inj 03/02/2018 03/02/2018 Inactive prednisone 20 mg tablet RxNorm: 306658 1 Tablet(s) PO BID 03/0203/06/2018 Inactive start tomorrow -1 q am and 1 q noon cefdinir 300 mg capsule RxNorm: 261488 1 Capsule(s) PO BID 03/08/2018 Inactive Zithromax Z-Jomar 250 mg tablet RxNorm: 152371 1 Tablet(s) PO UD 03/02/2018 03/06/2018 Inactive ipratropium-albuterol 0.5 mg-3 mg(2.5 mg base)/3 mL nebulization soln RxNorm: 0681793 3 Milliliter(s) INH qid prn 03/02/2018 03/15/2018 Inactive naproxen 500 mg tablet RxNorm: 031218 1 Tablet(s) PO BID 201701/05/2018 Inactive doxycycline hyclate 100 mg capsule RxNorm: 7083351 1 Capsule(s) PO BID 09/09/2017 09/22/2017 Inactive doxycycline hyclate 100 mg capsule RxNorm: 0438557 1 Capsule(s) PO BID 08/11/2017 08/14/2017 Inactive doxycycline hyclate 100 mg capsule RxNorm: 5676891 1 Capsule(s) PO BID 08/04/2017 08/10/2017 Inactive ProAir HFA 90 mcg/actuation aerosol inhaler RxNorm: 4307252 1-2 Puff(s) INH Q4H as needed No Start Date 03/03/2018 Inactive prednisone 10 mg tablet RxNorm: 925793 Tablet(s) PO No Start Date 03/15/2018 Inactive 60,60,50,50,40,40,30,30,20,20,10,10 Medication Administered Medication Codes Instructions Start Date Status Kenalog 40 mg/mL suspension for injection RxNorm: 7171611 Milliliter 03/16/2018 Active ceftriaxone 500 mg solution for injection RxNorm: 9434841 2Milliliter 03/02/2018 No longer Active Kenalog 40 mg/mL suspension for injection RxNorm: 3590092 1.5Milliliter 03/02/2018 No longer Active Immunizations No Immunization [...] Code Result Date Ehrlichia Chaffeensis Antibody Igm 233015 EHRLICHIA CHAFFEENSIS IGM < 1:16 08/08/2017 Ehrlichia Chaffeensis Antibody Igg 926456 EHRLICHIA CHAFFEENSIS IGG 1:256 08/08/2017 [place] Spotted Fever Igg/Igm 094646 [place] SPOTTED FEVER IGM EIA . 08/08/2017 [place] Spotted Fever Igg/Igm 377091 RMSF, IGM 0.42 index 08/08/2017 [place] Spotted Fever Igg/Igm 663528 [place] SPOTTED FEVER IGG EIA FLEX . 08/08/2017 [place] Spotted Fever Igg/Igm 970731 RMSF, IGG SCREEN-FLEX Negative 08/08/2017 Tsh Ord6 TSH (3rd IS) 3.72 uIU/mL 08/05/2017 Free T4 Yve509 FREE T4 0.98 ng/dL 08/05/2017 Lymes Disease Total Antibodies With Western Blot Reflex 133523 B. BURGDORFERI, IGG/IGM 0.176 08/05/2017 [place]ym[facility] Disease Total Antibodies With Western Blot Reflex 429527 08/05/2017 %Hba1C Jlq851 % HbA1c 55647-4 5.6 % 08/04/2017 %Hba1C Hvf558 Gluc Ave 114 mg/dL 08/04/2017 Comp Metabolic Vsq995 NA 136 mEq/L 08/04/2017 Comp Metabolic Jto736 K 4.4 mEq/L 08/04/2017 Comp Metabolic Qpu259 CL 100 mEq/L 08/04/2017 Comp Metabolic Onu342 CO2 27.0 mEq/L 08/04/2017 Comp Metabolic Nvc765 ANION GAP 13 08/04/2017 Comp Metabolic Xug027 GLUCOSE 95 mg/dL 08/04/2017 Comp Metabolic Ffn045 Creat 0.8 mg/dL 08/04/2017 Comp Metabolic Blb081 eGFR 105 ml/min/1.73m2 08/04/2017 Comp Metabolic Jmw452 BUN 28 mg/dL 08/04/2017 Comp Metabolic Rro384 B/C Ratio 35.0 Ratio 08/04/2017 Comp Metabolic Pkn924 CALCIUM 8.7 mg/dL 08/04/2017 Comp Metabolic Thg524 ALK PHOS 61 U/L 08/04/2017 Comp Metabolic Nvj570 AST(SGOT) 21 U/L 08/04/2017 Comp Metabolic Vak809 ALT(SGPT) 18 U/L 08/04/2017 Comp Metabolic Nzf389 BILI T 0.7 mg/dL 08/04/2017 Comp Metabolic Yjp517 ALBUMIN 4.5 g/dL 08/04/2017 Comp Metabolic Lmd497 TPRO 6.7 g/dL 08/04/2017 Comp Metabolic Rbi908 GLOB 2.3 g/dL 08/04/2017 Comp Metabolic Fgl030 A/G Ratio 2.0 Ratio 08/04/2017 Comp Metabolic Myn132 Osmo 277 mOsmo 08/04/2017 Cbc With Differential [...] 31.1 pg 08/04/2017 Cbc With Differential Ord2 Heard% 8.7 % 08/04/2017 Cbc With Differential Ord2 MCHC 34.6 pg 08/04/2017 Cbc With Differential Ord2 Eos% 2.6 % 08/04/2017 Cbc With Differential Ord2 Baso% 0.3 % 08/04/2017 Cbc With Differential Ord2 PLT 231 K/ul 08/04/2017 Cbc With Differential Ord2 Neut ABS# 4.72 K/ul 08/04/2017 Cbc With Differential Ord2 RDW 13.3 % 08/04/2017 Cbc With Differential Ord2 Lymph ABS# 1.49 K/ul 08/04/2017 Cbc With Differential Ord2 Heard ABS# 0.6 K/ul 08/04/2017 Cbc With Differential [...] contact 08/04/2017 None Procedures Procedure Codes Date THER/PROPH/DIAG INJ SC/IM CPT-4: 70732 03/16/2018 TRIAMCINOLONE ACET INJ NOS CPT-4: J3301 03/16/2018 TRIAMCINOLONE ACET INJ NOS CPT-4: J3301 03/02/2018 ROCEPHIN, PER 250 MG CPT-4: J0696 03/02/2018 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 CPT-4: 45870 08/04/2017 Vital Signs Date Vital 03/16/2018 Blood Pressure 1: 122/68 Code : 8480-6 BMI: 26.6 Code : 79710-6 Heart Rate 1 : 88 bpm Height: 5'7" SpO2: 96% Weight: 170 lbs 03/02/2018 Blood Pressure 1: 140/80 Code : 8480-6 BMI: 26.5 Code : 85596-1 Heart Rate 1 : 87 bpm Height: 5'7" SpO2: 95% Temperature: 36.7 (C) / 98.1 (F) Weight: 169 lbs 01/01/2018 Blood Pressure 1: 134/66 Code : 8480-6 BMI: 26.8 Code : 11109-4 Heart Rate 1 : 65 bpm Height: 5'7" SpO2: 99% Weight: 171 lbs 08/25/2017 Blood Pressure 1: 136/72 Code : 8480-6 BMI: 27.4 Code : 49410-2 Heart Rate 1 : 70 bpm Height: 5'7" SpO2: 96% Weight: 175 lbs 08/04/2017 Blood Pressure 1: 130/78 Code : 8480-6 BMI: 27.6 Code : 45164-9 Heart Rate 1 : 65 bpm Height: [...] data Encounters Encounter Performer Location Codes Date 78347 EST. PATIENT, LEVEL IV Diagnosis: Cough[ICD10: R05] Diagnosis: Pneumonia, unspecified organism[ICD10: J18.9] Anisha Ortega MD, [facility] CPT-4: 78972 03/16/2018 ([id number]) 55341 EST. PATIENT, LEVEL III Diagnosis: Cough[ICD10: R05] Diagnosis: Pneumonia, unspecified organism[ICD10: J18.9] Reta Ortega MD, [facility] CPT-4: 36767 03/02/2018 [id number] EST. PATIENT, LEVEL III Diagnosis: Pain in left finger(s)[ICD10: M79.645] Diagnosis: Pain in left hand[ICD10: M79.642] Anisha Ortega MD, [facility] CPT -4: 09570 01/01/2018 [id number] EST. PATIENT, LEVEL III Diagnosis: Other fatigue[ICD10: R53.83] Anisha Ortega MD, [facility] CPT-4 : 53061 08/25/2017 OFFICE VISIT, NEW - LEVEL 3 Diagnosis: Other malaise[ICD10: R53.81] Diagnosis: Other fatigue[ICD10: R53.83] Diagnosis: Other hypoglycemia[ICD10: E16.1] Diagnosis: Actinic keratosis[ICD10: L57.0] Diagnosis: Cardiac murmur, unspecified[ICD10: R01.1] Anisha Ortega MD, [facility] CPT-4: 95121 08/04/2017 Plan of Care Planned Activity Notes Codes Status Date Visit Plan: Pneumonia - Pt has been diagnosed with pneumonia by physical exam. A chest xray has been ordered as have antibiotics. The pt is aware of the diagnosis and the need for acute treatment of this illness. 03/16/2018 Patient Education: Patient Medication Summary Completed 03/16/2018 Care Plan: CHEST X-RAY 2VW FRONTAL&LATL LOINC : 40975-6 Pending 03/16/2018 Visit Plan: Pneumonia - Pt has been diagnosed with pneumonia by physical exam. A chest xray has been ordered as have antibiotics. The pt is aware of the diagnosis and the need for acute treatment of this illness. 03/02/2018 Appointment: Reta Gonzalez WPtel: [phone] [phone] [place] (30 min) Complex 03/02/2018 Patient Education: Patient Medication Summary Completed 03/02/2018 Care Plan: CHEST X-RAY 2VW FRONTAL&LATL LOINC : 86511-1 Pending 03/02/2018 Appointment: Anisha Whitmore WPtel: [facility] [place] (15 min) Moderate 02/19/2018 Visit Plan: Left hand/thumb pain - The pt is to use prn antiinflammatories to manage acute pain. The patient is to call the office if the pain is worsening or does not improve. 01/01/2018 Appointment: Anisha Whitmore WPtel: [facility] [place] (15 min) Moderate 01/01/2018 Patient Education: Patient Medication Summary Completed 01/01/2018 Care Plan: X-RAY EXAM OF HAND LOINC : 26658-4 Pending 01/01/2018 Visit Plan: Fatigue, malaise, joint complaints - improved since finishing doxy - will have pt monitor symptoms and notify clinic if symptoms return, or with any changes, questions, or concerns. 08/25/2017 [phone] [facility] [place] ([facility] [place]) Moderate 08/25/2017 Patient Education: Patient Medication Summary Completed 08/25/2017 Appointment: Anisha Whitmore WPtel: [phone] [facility] [place] (30 min) Complex 08/22/2017 Visit Plan: [...] indicated 08/04/2017 [facility] [phone] [facility] [facility] Patient 08/04/2017 Patient Education: Patient Medication Summary Completed 08/04/2017 [facility]: [facility] [phone] [facility] [facility] 07/18/2017 Instructions Comment . [...]
--- OUTSIDE RECORDS SUMMARY | 2018-07-08 10:58 | XMS REPORT | CCD ---
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/[address]: 0403429 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 over 10 years ago 08/04/[address]: 420754969 Never drinks alcohol 08/04/2017 Has the patient [...] Kenalog 40 mg/mL suspension for injection RxNorm: 9024407 Milliliter(s) Inj 03/16/2018 03/16/2018 Inactive prednisone 10 mg tablet RxNorm: 889290 Tablet(s) PO UD 2018 No Stop Date Active 60,60,50,50,40,40,30,30,20,20,10,10 ipratropium-albuterol 0.5 mg-3 mg(2.5 mg base)/3 mL nebulization soln RxNorm: 2541005 3 Milliliter(s) INH qid prn 03/16/2018 No Stop Date Active Levaquin 500 mg tablet RxNorm: 778249 1 Tablet(s) PO daily 03/22/2018 Active ProAir HFA 90 mcg/actuation aerosol inhaler RxNorm: 6527487 1-2 Puff(s) INH Q4H as needed 03/04/2018 No Stop Date Active ceftriaxone 500 mg solution for injection RxNorm: 7524511 2 Milliliter(s) Inj 03/02/2018 03/02/2018 Inactive Kenalog 40 mg/mL suspension for injection RxNorm: 3199406 1.5 Milliliter(s) Inj 03/02/2018 03/02/2018 Inactive prednisone 20 mg tablet RxNorm: 808373 1 Tablet(s) PO BID 03/0203/06/2018 Inactive start tomorrow -1 q am and 1 q noon cefdinir 300 mg capsule RxNorm: 402800 1 Capsule(s) PO BID 03/08/2018 Inactive Zithromax Z-Jomar 250 mg tablet RxNorm: 935455 1 Tablet(s) PO UD 03/02/2018 03/06/2018 Inactive ipratropium-albuterol 0.5 mg-3 mg(2.5 mg base)/3 mL nebulization soln RxNorm: 5105923 3 Milliliter(s) INH qid prn 03/02/2018 03/15/2018 Inactive naproxen 500 mg tablet RxNorm: 914906 1 Tablet(s) PO BID 201701/05/2018 Inactive doxycycline hyclate 100 mg capsule RxNorm: 1847066 1 Capsule(s) PO BID 09/09/2017 09/22/2017 Inactive doxycycline hyclate 100 mg capsule RxNorm: 3748087 1 Capsule(s) PO BID 08/11/2017 08/14/2017 Inactive doxycycline hyclate 100 mg capsule RxNorm: 0768963 1 Capsule(s) PO BID 08/04/2017 08/10/2017 Inactive ProAir HFA 90 mcg/actuation aerosol inhaler RxNorm: 1627286 1-2 Puff(s) INH Q4H as needed No Start Date 03/03/2018 Inactive prednisone 10 mg tablet RxNorm: 556000 Tablet(s) PO No Start Date 03/15/2018 Inactive 60,60,50,50,40,40,30,30,20,20,10,10 Medication Administered Medication Codes Instructions Start Date Status Kenalog 40 mg/mL suspension for injection RxNorm: 8714396 Milliliter 03/16/2018 Active ceftriaxone 500 mg solution for injection RxNorm: 9128146 2Milliliter 03/02/2018 No longer Active Kenalog 40 mg/mL suspension for injection RxNorm: 3848274 1.5Milliliter 03/02/2018 No longer Active Immunizations No [...] Code Result Date Ehrlichia Chaffeensis Antibody Igm 200861 EHRLICHIA CHAFFEENSIS IGM < 1:16 08/08/2017 Ehrlichia Chaffeensis Antibody Igg 051859 EHRLICHIA CHAFFEENSIS IGG 1:256 08/08/2017 [place] Spotted Fever Igg/Igm 366479 [place] SPOTTED FEVER IGM EIA . 08/08/2017 [place] Spotted Fever Igg/Igm 871594 RMSF, IGM 0.42 index 08/08/2017 [place] Spotted Fever Igg/Igm 963836 [place] SPOTTED FEVER IGG EIA FLEX . 08/08/2017 [place] Spotted Fever Igg/Igm 027433 RMSF, IGG SCREEN-FLEX Negative 08/08/2017 Tsh Ord6 TSH (3rd IS) 3.72 uIU/mL 08/05/2017 Free T4 Srs564 FREE T4 0.98 ng/dL 08/05/2017 Lymes Disease Total Antibodies With Western Blot Reflex 183429 B. BURGDORFERI, IGG/IGM 0.176 08/05/2017 [place]ym[facility] Disease Total Antibodies With Western Blot Reflex 527217 08/05/2017 %Hba1C Iwi538 % HbA1c 96597-4 5.6 % 08/04/2017 %Hba1C Txs540 Gluc Ave 114 mg/dL 08/04/2017 Comp Metabolic Iyv631 NA 136 mEq/L 08/04/2017 Comp Metabolic Guj316 K 4.4 mEq/L 08/04/2017 Comp Metabolic Cix620 CL 100 mEq/L 08/04/2017 Comp Metabolic Fcu912 CO2 27.0 mEq/L 08/04/2017 Comp Metabolic Kix515 ANION GAP 13 08/04/2017 Comp Metabolic Jos329 GLUCOSE 95 mg/dL 08/04/2017 Comp Metabolic Mxr602 Creat 0.8 mg/dL 08/04/2017 Comp Metabolic Sfl513 eGFR 105 ml/min/1.73m2 08/04/2017 Comp Metabolic Pjn240 BUN 28 mg/dL 08/04/2017 Comp Metabolic Lfi221 B/C Ratio 35.0 Ratio 08/04/2017 Comp Metabolic Llk016 CALCIUM 8.7 mg/dL 08/04/2017 Comp Metabolic Tye433 ALK PHOS 61 U/L 08/04/2017 Comp Metabolic Qgh685 AST(SGOT) 21 U/L 08/04/2017 Comp Metabolic Dyt700 ALT(SGPT) 18 U/L 08/04/2017 Comp Metabolic Fdh303 BILI T 0.7 mg/dL 08/04/2017 Comp Metabolic Ueo074 ALBUMIN 4.5 g/dL 08/04/2017 Comp Metabolic Nod496 TPRO 6.7 g/dL 08/04/2017 Comp Metabolic Trw662 GLOB 2.3 g/dL 08/04/2017 Comp Metabolic Gdp267 A/G Ratio 2.0 Ratio 08/04/2017 Comp Metabolic Jdb291 Osmo 277 mOsmo 08/04/2017 Cbc With Differential [...] 31.1 pg 08/04/2017 Cbc With Differential Ord2 [place]% 8.7 % 08/04/2017 Cbc With Differential Ord2 [...] 1.49 K/ul 08/04/2017 Cbc With Differential Ord2 [place] ABS# 0.6 K/ul 08/04/2017 Cbc With Differential [...] Procedure Codes Date THER/PROPH/DIAG INJ SC/IM CPT-4: 88182 03/16/2018 TRIAMCINOLONE ACET INJ NOS CPT-4: J3301 03/16/2018 TRIAMCINOLONE ACET INJ NOS CPT-4: J3301 03/02/2018 ROCEPHIN, PER 250 MG CPT-4: J0696 03/02/2018 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 CPT-4: 27369 08/04/2017 Vital Signs Date Vital 03/16/2018 Blood Pressure 1: 122/68 Code : 8480-6 BMI: 26.6 Code : 77417-9 Heart Rate 1 : 88 bpm Height: 5'7" SpO2: 96% Weight: 170 lbs 03/02/2018 Blood Pressure 1: 140/80 Code : 8480-6 BMI: 26.5 Code : 35164-6 Heart Rate 1 : 87 bpm Height: 5'7" SpO2: 95% Temperature: 36.7 (C) / 98.1 (F) Weight: 169 lbs 01/01/2018 Blood Pressure 1: 134/66 Code : 8480-6 BMI: 26.8 Code : 89028-4 Heart Rate 1 : 65 bpm Height: 5'7" SpO2: 99% Weight: 171 lbs 08/25/2017 Blood Pressure 1: 136/72 Code : 8480-6 BMI: 27.4 Code : 57103-0 Heart Rate 1 : 70 bpm Height: 5'7" SpO2: 96% Weight: 175 lbs 08/04/2017 Blood Pressure 1: 130/78 Code : 8480-6 BMI: 27.6 Code : 38381-3 Heart Rate 1 : 65 bpm Height: [...] data Encounters Encounter Performer Location Codes Date 01870 EST. PATIENT, LEVEL IV Diagnosis: Cough[ICD10: R05] Diagnosis: Pneumonia, unspecified organism[ICD10: J18.9] Anisha Ortega MD, [facility] CPT-4: 19417 03/16/2018 ([id number]) 01754 EST. PATIENT, LEVEL III Diagnosis: Cough[ICD10: R05] Diagnosis: Pneumonia, unspecified organism[ICD10: J18.9] Reta Ortega MD, [facility] CPT-4: 42249 03/02/2018 83213 EST. PATIENT, LEVEL III Diagnosis: Pain in left finger(s)[ICD10: M79.645] Diagnosis: Pain in left hand[ICD10: M79.642] Anisha Ortega MD, [facility] CPT -4: 29163 01/01/2018 04494 EST. PATIENT, LEVEL III Diagnosis: Other fatigue[ICD10: R53.83] Anisha Ortega MD, [facility] CPT-4 : 81787 08/25/2017 OFFICE VISIT, NEW - LEVEL 3 Diagnosis: Other malaise[ICD10: R53.81] Diagnosis: Other fatigue[ICD10: R53.83] Diagnosis: Other hypoglycemia[ICD10: E16.1] Diagnosis: Actinic keratosis[ICD10: L57.0] Diagnosis: Cardiac murmur, unspecified[ICD10: R01.1] Anisha Ortega MD, [facility] CPT-4: 87531 08/04/2017 Plan of Care Planned Activity Notes [...] Plan: CHEST X-RAY 2VW FRONTAL&LATL LOINC : 97137-2 Pending 03/16/2018 Visit Plan: Pneumonia - Pt has been diagnosed with pneumonia by physical exam. A chest xray has been ordered as have antibiotics. The pt is aware of the diagnosis and the need for acute treatment of this illness. 03/02/2018 Appointment: Reta Gonzalez WPtel: [phone] [phone] [place] (30 min) Complex 03/02/2018 Patient Education: Patient Medication Summary Completed 03/02/2018 Care Plan: CHEST X-RAY 2VW FRONTAL&LATL LOINC : 20900-9 Pending 03/02/2018 Appointment: Anisha Whitmore WPtel: [facility] [place] (15 min) Moderate 02/19/2018 Visit Plan: Left hand/thumb pain - The pt is to use prn antiinflammatories to manage acute pain. The patient is to call the office if the pain is worsening or does not improve. 01/01/2018 Appointment: Anisha Whitmore WPtel: [facility] [place] (15 min) Moderate 01/01/2018 Patient Education: Patient Medication Summary Completed 01/01/2018 Care Plan: X-RAY EXAM OF HAND LOINC : 99786-2 Pending 01/01/2018 Visit Plan: Fatigue, malaise, joint complaints - improved since finishing doxy - will have pt monitor symptoms and notify clinic if symptoms return, or with any changes, questions, or concerns. 08/25/2017 [facility]ment[facility] [phone] [facility] [place] (15 [place]) Moderate 08/25/2017 Patient Education: Patient Medication Summary Completed 08/25/2017 Appointment: Anisha Whitmore WPtel: [phone] [facility] [place] (30 min) Complex 08/22/2017 Visit Plan: [...] indicated 08/04/2017 [facility]ment: [facility] [phone] [facility] [facility] Patient 08/04/2017 Patient Education: Patient Medication Summary Completed 08/04/2017 [facility]ment: [facility] [phone] [facility] [facility] Patient 07/18/2017 Instructions Comment . [...]
--- OUTSIDE RECORDS SUMMARY | 2018-07-08 10:59 | XMS REPORT | CCD ---
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/04/[address]: 5597417 Quit over 10 years ago 08/04/[address]: 298634197 Never drinks alcohol 08/04/2017 Has the patient [...] Kenalog 40 mg/mL suspension for injection RxNorm: 6688957 Milliliter(s) Inj 03/16/2018 03/16/2018 Inactive ipratropium-albuterol 0.5 mg-3 mg(2.5 mg base)/3 mL nebulization soln RxNorm: 5093526 3 Milliliter(s) INH qid prn 03/16/2018 No Stop Date Active Levaquin 500 mg tablet RxNorm: 772170 1 Tablet(s) PO daily 03/22/2018 Active ProAir HFA 90 mcg/actuation aerosol inhaler RxNorm: 0139676 1-2 Puff(s) INH Q4H as needed 03/04/2018 No Stop Date Active ceftriaxone 500 mg solution for injection RxNorm: 2951562 2 Milliliter(s) Inj 03/02/2018 03/02/2018 Inactive Kenalog 40 mg/mL suspension for injection RxNorm: 9050802 1.5 Milliliter(s) Inj 03/02/2018 03/02/2018 Inactive prednisone 20 mg tablet RxNorm: 840310 1 Tablet(s) PO BID 03/0203/06/2018 Inactive start tomorrow -1 q am and 1 q noon cefdinir 300 mg capsule RxNorm: 956455 1 Capsule(s) PO BID 03/08/2018 Inactive Zithromax Z-Jomar 250 mg tablet RxNorm: 889712 1 Tablet(s) PO UD 03/02/2018 03/06/2018 Inactive ipratropium-albuterol 0.5 mg-3 mg(2.5 mg base)/3 mL nebulization soln RxNorm: 2108882 3 Milliliter(s) INH qid prn 03/02/2018 03/15/2018 Inactive naproxen 500 mg tablet RxNorm: 938376 1 Tablet(s) PO BID 201701/05/2018 Inactive doxycycline hyclate 100 mg capsule RxNorm: 5130770 1 Capsule(s) PO BID 09/09/2017 09/22/2017 Inactive doxycycline hyclate 100 mg capsule RxNorm: 6612759 1 Capsule(s) PO BID 08/11/2017 08/14/2017 Inactive doxycycline hyclate 100 mg capsule RxNorm: 9660293 1 Capsule(s) PO BID 08/04/2017 08/10/2017 Inactive ProAir HFA 90 mcg/actuation aerosol inhaler RxNorm: 6979508 1-2 Puff(s) INH Q4H as needed No Start Date 03/03/2018 Inactive Medication Administered Medication Codes Instructions Start Date Status Kenalog 40 mg/mL suspension for injection RxNorm: 4667168 Milliliter 03/16/2018 Active ceftriaxone 500 mg solution for injection RxNorm: 4624986 2Milliliter 03/02/2018 No longer Active Kenalog 40 mg/mL suspension for injection RxNorm: 4465925 1.5Milliliter 03/02/2018 No longer Active Immunizations No [...] Code Result Date Ehrlichia Chaffeensis Antibody Igm 716843 EHRLICHIA CHAFFEENSIS IGM < 1:16 08/08/2017 Ehrlichia Chaffeensis Antibody Igg 732996 EHRLICHIA CHAFFEENSIS IGG 1:256 08/08/2017 [place] Spotted Fever Igg/Igm 728203 [place] SPOTTED FEVER IGM EIA . 08/08/2017 [place] Spotted Fever Igg/Igm 441924 RMSF, IGM 0.42 index 08/08/2017 [place] Spotted Fever Igg/Igm 607847 [place] SPOTTED FEVER IGG EIA FLEX . 08/08/2017 [place] Spotted Fever Igg/Igm 893545 RMSF, IGG SCREEN-FLEX Negative 08/08/2017 Tsh Ord6 TSH (3rd IS) 3.72 uIU/mL 08/05/2017 Free T4 Epd023 FREE T4 0.98 ng/dL 08/05/2017 Lymes Disease Total Antibodies With Western Blot Reflex 999176 B. BURGDORFERI, IGG/IGM 0.176 08/05/2017 Lymes Disease Total Antibodies With Western Blot Reflex 359700 08/05/2017 %Hba1C Vav446 % HbA1c 73371-5 5.6 % 08/04/2017 %Hba1C Mat697 Gluc Ave 114 mg/dL 08/04/2017 Comp Metabolic Kgr736 NA 136 mEq/L 08/04/2017 Comp Metabolic Unm372 K 4.4 mEq/L 08/04/2017 Comp Metabolic Ljh814 CL 100 mEq/L 08/04/2017 Comp Metabolic Rrz207 CO2 27.0 mEq/L 08/04/2017 Comp Metabolic Cbu695 ANION GAP 13 08/04/2017 Comp Metabolic Spg040 GLUCOSE 95 mg/dL 08/04/2017 Comp Metabolic Hpy128 Creat 0.8 mg/dL 08/04/2017 Comp Metabolic Wlf797 eGFR 105 ml/min/1.73m2 08/04/2017 Comp Metabolic Bmk344 BUN 28 mg/dL 08/04/2017 Comp Metabolic Vow434 B/C Ratio 35.0 Ratio 08/04/2017 Comp Metabolic Hvk574 CALCIUM 8.7 mg/dL 08/04/2017 Comp Metabolic Gdu657 ALK PHOS 61 U/L 08/04/2017 Comp Metabolic Xcg348 AST(SGOT) 21 U/L 08/04/2017 Comp Metabolic Stn275 ALT(SGPT) 18 U/L 08/04/2017 Comp Metabolic Abv208 BILI T 0.7 mg/dL 08/04/2017 Comp Metabolic Arz122 ALBUMIN 4.5 g/dL 08/04/2017 Comp Metabolic Osd203 TPRO 6.7 g/dL 08/04/2017 Comp Metabolic Eyn199 GLOB 2.3 g/dL 08/04/2017 Comp Metabolic Hnr653 A/G Ratio 2.0 Ratio 08/04/2017 Comp Metabolic Old606 Osmo 277 mOsmo 08/04/2017 Cbc With Differential [...] 31.1 pg 08/04/2017 Cbc With Differential Ord2 [place]% 8.7 % 08/04/2017 Cbc With Differential Ord2 [...] 1.49 K/ul 08/04/2017 Cbc With Differential Ord2 [place] ABS# 0.6 K/ul 08/04/2017 Cbc With Differential [...] nourished 08/04/2017 None Full Exam - General 1995 Eyes conjunctiva /eyelids Overall: conjunctiva clear 08/04/2017 [...] Procedure Codes Date THER/PROPH/DIAG INJ SC/IM CPT-4: 41683 03/16/2018 TRIAMCINOLONE ACET INJ NOS CPT-4: J3301 03/16/2018 TRIAMCINOLONE ACET INJ NOS CPT-4: J3301 03/02/2018 ROCEPHIN, PER 250 MG CPT-4: J0696 03/02/2018 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 CPT-4: 30906 08/04/2017 Vital Signs Date Vital 03/16/2018 Blood Pressure 1: 122/68 Code : 8480-6 BMI: 26.6 Code : 03678-9 Heart Rate 1 : 88 bpm Height: 5'7" SpO2: 96% Weight: 170 lbs 03/02/2018 Blood Pressure 1: 140/80 Code : 8480-6 BMI: 26.5 Code : 69125-1 Heart Rate 1 : 87 bpm Height: 5'7" SpO2: 95% Temperature: 36.7 (C) / 98.1 (F) Weight: 169 lbs 01/01/2018 Blood Pressure 1: 134/66 Code : 8480-6 BMI: 26.8 Code : 66357-3 Heart Rate 1 : 65 bpm Height: 5'7" SpO2: 99% Weight: 171 lbs 08/25/2017 Blood Pressure 1: 136/72 Code : 8480-6 BMI: 27.4 Code : 92761-0 Heart Rate 1 : 70 bpm Height: 5'7" SpO2: 96% Weight: 175 lbs 08/04/2017 Blood Pressure 1: 130/78 Code : 8480-6 BMI: 27.6 Code : 63793-7 Heart Rate 1 : 65 bpm Height: [...] data Encounters Encounter Performer Location Codes Date 27801 EST. PATIENT, LEVEL IV Diagnosis: Cough[ICD10: R05] Diagnosis: Pneumonia, unspecified organism[ICD10: J18.9] Anisha Ortega MD, [facility] CPT-4: 77728 03/16/2018 (54485) 76388 EST. PATIENT, LEVEL III Diagnosis: Cough[ICD10: R05] Diagnosis: Pneumonia, unspecified organism[ICD10: J18.9] Reta Ortega MD, [facility] CPT-4: 59462 03/02/2018 46545 EST. PATIENT, LEVEL III Diagnosis: Pain in left finger(s)[ICD10: M79.645] Diagnosis: Pain in left hand[ICD10: M79.642] Anisha Ortega MD, [facility] CPT -4: 93108 01/01/2018 48322 EST. PATIENT, LEVEL III Diagnosis: Other fatigue[ICD10: R53.83] Anisha Ortega MD, [facility] CPT-4 : 93134 08/25/2017 OFFICE VISIT, NEW - LEVEL 3 Diagnosis: Other malaise[ICD10: R53.81] Diagnosis: Other fatigue[ICD10: R53.83] Diagnosis: Other hypoglycemia[ICD10: E16.1] Diagnosis: Actinic keratosis[ICD10: L57.0] Diagnosis: Cardiac murmur, unspecified[ICD10: R01.1] Anisha Ortega MD, [facility] CPT-4: 30288 08/04/2017 Plan of Care Planned Activity Notes [...] Plan: CHEST X-RAY 2VW FRONTAL&LATL LOINC : 53448-8 Pending 03/16/2018 Visit Plan: Pneumonia - Pt has been diagnosed with pneumonia by physical exam. A chest xray has been ordered as have antibiotics. The pt is aware of the diagnosis and the need for acute treatment of this illness. 03/02/2018 Appointment: Reta Gonzalez WPtel: [address] [place], [place] [phone] [place] (30 min) Complex 03/02/2018 Patient Education: Patient Medication Summary Completed 03/02/2018 Care Plan: CHEST X-RAY 2VW FRONTAL&LATL LOINC : 70507-5 Pending 03/02/2018 Appointment: Anisha Whitmore WPtel: [address] [place], [place] [id number] (15 min) Moderate 02/19/2018 Visit Plan: Left hand/thumb pain - The pt is to use prn antiinflammatories to manage acute pain. The patient is to call the office if the pain is worsening or does not improve. 01/01/2018 Appointment: Anisha Whitmore WPtel: [address] [place], [place] [phone] [place] (15 min) Moderate 01/01/2018 Patient Education: Patient Medication Summary Completed 01/01/2018 Care Plan: X-RAY EXAM OF HAND LOINC : 33586-0 Pending 01/01/2018 Visit Plan: Fatigue, malaise, joint complaints - improved since finishing dox - will have pt monitor symptoms and notify clinic if symptoms return, or with any changes, questions, or concerns. 08/25/2017 Appointment: Anisha Whitmore WPtel: [address] [place], [place] [phone] [place] (15 min) Moderate 08/25/2017 Patient Education: Patient Medication Summary Completed 08/25/2017 Appointment: Anisha Whitmore WPtel: [address] [place], [place] [phone] [place] (30 min) Complex 08/22/2017 Visit Plan: [...] if indicated 08/04/2017 Appointment: Anisha Whitmore WPtel: [address] [place], [place] [phone] [place] New Patient 08/04/2017 Patient Education: Patient Medication Summary Completed 08/04/2017 Appointment: Haim Anisha [facility]el[facility] [phone] [facility] [place] New Patient 07/18/2017 Instructions Comment . Fatigue, [...]
--- OUTSIDE RECORDS SUMMARY | 2018-07-08 11:00 | XMS REPORT | CCD ---
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/04/[address]: 9225565 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 over 10 years ago 08/04/[address]: 375206117 Never drinks alcohol 08/04/2017 Has the patient [...] ProAir HFA 90 mcg/actuation aerosol inhaler RxNorm: 8949082 1-2 Puff(s) INH Q4H as needed 03/04/2018 No Stop Date Active prednisone 20 mg tablet RxNorm: 403790 1 Tablet(s) PO BID 03/0203/06/2018 Active start tomorrow -1 q am and 1 q noon cefdinir 300 mg capsule RxNorm: 741282 1 Capsule(s) PO BID 03/08/2018 Active Zithromax Z-Jomar 250 mg tablet RxNorm: 796276 1 Tablet(s) PO UD 03/02/2018 03/06/2018 Active ipratropium-albuterol 0.5 mg-3 mg(2.5 mg base)/3 mL nebulization soln RxNorm: 9102171 3 Milliliter(s) INH qid prn 03/02/2018 No Stop Date Active ceftriaxone 500 mg solution for injection RxNorm: 0952039 2 Milliliter(s) Inj 03/02/2018 03/02/2018 Inactive Kenalog 40 mg/mL suspension for injection RxNorm: 7051424 1.5 Milliliter(s) Inj 03/02/2018 03/02/2018 Inactive naproxen 500 mg tablet RxNorm: 234162 1 Tablet(s) PO BID 201701/05/2018 Inactive doxycycline hyclate 100 mg capsule RxNorm: 8027238 1 Capsule(s) PO BID 09/09/2017 09/22/2017 Inactive doxycycline hyclate 100 mg capsule RxNorm: 7273162 1 Capsule(s) PO BID 08/11/2017 08/14/2017 Inactive doxycycline hyclate 100 mg capsule RxNorm: 5343686 1 Capsule(s) PO BID 08/04/2017 08/10/2017 Inactive ProAir HFA 90 mcg/actuation aerosol inhaler RxNorm: 7337247 1-2 Puff(s) INH Q4H as needed No Start Date 03/03/2018 Inactive Medication Administered Medication Codes Instructions Start Date Status Kenalog 40 mg/mL suspension for injection RxNorm: 4252526 1.5Milliliter 03/02/2018 No longer Active ceftriaxone 500 mg solution for injection RxNorm: 4532410 2Milliliter 03/02/2018 No longer Active Immunizations No Immunization data Assessments Condition Codes Effective Dates Pneumonia, unspecified organism ICD-10: J18.9 ICD-9: 486 03/02/2018 Cough ICD-10: R05 ICD-9: 786.2 03/02/2018 Pain in left finger(s) ICD-10: M79.645 ICD-9: 729.5 01/01/2018 Pain in left hand ICD-10: M79.642 ICD-9: 729.5 01/01/2018 Other fatigue ICD-10: R53.83 ICD-9: 780.79 08/25/2017 Actinic keratosis ICD-10: L57.0 ICD-9: 702.0 08/04/2017 Cardiac murmur, unspecified ICD-10: R01.1 ICD-9: 785.2 08/04/2017 Other hypoglycemia ICD-10: E16.1 ICD-9: 251.1 08/04/2017 Other malaise ICD-10: R53.81 ICD-9: 780.79 08/04/2017 Reason For Visit Reason For Visit Effective Dates Notes cough 03/02/2018 thumb and hand pain 01/01/2018 fatigue 08/25/2017 fatigue 08/04/2017 Results Observation Observation Code Item Item Code Result Date Ehrlichia Chaffeensis Antibody Igm 116222 EHRLICHIA CHAFFEENSIS IGM < 1:16 08/08/2017 Ehrlichia Chaffeensis Antibody Igg 451115 EHRLICHIA CHAFFEENSIS IGG 1:256 08/08/2017 [place] Spotted Fever Igg/Igm 407162 [place] SPOTTED FEVER IGM EIA . 08/08/2017 [place] Spotted Fever Igg/Igm 510263 RMSF, IGM 0.42 index 08/08/2017 [place] Spotted Fever Igg/Igm 275060 [place] SPOTTED FEVER IGG EIA FLEX . 08/08/2017 [place] Spotted Fever Igg/Igm 053390 RMSF, IGG SCREEN-FLEX Negative 08/08/2017 Tsh Ord6 TSH (3rd IS) 3.72 uIU/mL 08/05/2017 Free T4 Bve686 FREE T4 0.98 ng/dL 08/05/2017 Lymes Disease Total Antibodies With Western Blot Reflex 173429 B. BURGDORFERI, IGG/IGM 0.176 08/05/2017 Lymes Disease Total Antibodies With Western Blot Reflex [id number] 08/05/2017 %Hba1C Oen062 % HbA1c 26397-8 5.6 % 08/04/2017 %Hba1C Hsm943 Gluc Ave 114 mg/dL 08/04/2017 Comp Metabolic Mdq093 NA 136 mEq/L 08/04/2017 Comp Metabolic Gqd803 K 4.4 mEq/L 08/04/2017 Comp Metabolic Ecx363 CL 100 mEq/L 08/04/2017 Comp Metabolic Cpb949 CO2 27.0 mEq/L 08/04/2017 Comp Metabolic Myg866 ANION GAP 13 08/04/2017 Comp Metabolic Gbz550 GLUCOSE 95 mg/dL 08/04/2017 Comp Metabolic Rcl230 Creat 0.8 mg/dL 08/04/2017 Comp Metabolic Sge116 eGFR 105 ml/min/1.73m2 08/04/2017 Comp Metabolic Kma037 BUN 28 mg/dL 08/04/2017 Comp Metabolic Wzl237 B/C Ratio 35.0 Ratio 08/04/2017 Comp Metabolic Chn951 CALCIUM 8.7 mg/dL 08/04/2017 Comp Metabolic Mcv090 ALK PHOS 61 U/L 08/04/2017 Comp Metabolic Avv491 AST(SGOT) 21 U/L 08/04/2017 Comp Metabolic Oyu971 ALT(SGPT) 18 U/L 08/04/2017 Comp Metabolic Cnh638 BILI T 0.7 mg/dL 08/04/2017 Comp Metabolic Quw234 ALBUMIN 4.5 g/dL 08/04/2017 Comp Metabolic Xhb251 TPRO 6.7 g/dL 08/04/2017 Comp Metabolic Ajg255 GLOB 2.3 g/dL 08/04/2017 Comp Metabolic Yfc647 A/G Ratio 2.0 Ratio 08/04/2017 Comp Metabolic Lss313 Osmo 277 mOsmo 08/04/2017 Cbc With Differential [...] 21.2 % 08/04/2017 Cbc With Differential Ord2 [place]% 8.7 % 08/04/2017 Cbc With Differential Ord2 MCH 31.1 pg 08/04/2017 Cbc With Differential Ord2 Eos% 2.6 % 08/04/2017 Cbc With Differential Ord2 MCHC 34.6 pg 08/04/2017 Cbc With Differential Ord2 PLT 231 K/ul 08/04/2017 Cbc With Differential Ord2 Baso% 0.3 % 08/04/2017 Cbc With Differential Ord2 RDW 13.3 % 08/04/2017 Cbc With Differential Ord2 Neut ABS# 4.72 K/ul 08/04/2017 Cbc With Differential Ord2 Lymph ABS# 1.49 K/ul 08/04/2017 Cbc With Differential Ord2 [place] ABS# 0.6 K/ul 08/04/2017 Cbc With Differential Ord2 Eos ABS# 0.2 K/ul 08/04/2017 Cbc With Differential Ord2 Baso ABS# 0.0 K/ul 08/04/2017 Lipid Ord30 CHOL 209 mg/dL 08/04/2017 Lipid Ord30 HDL 56.0 mg/dl 08/04/2017 Lipid Ord30 TRIG 98 mg/dL 08/04/2017 Lipid Ord30 LDL 133 mg/dL 08/04/2017 Lipid Ord30 C/HDL 3.7 Ratio 08/04/2017 Review of Systems System Result Effective Dates Constitutional recent illness 03/02/2018 Constitutional anorexia 03/02/2018 [...] Date TRIAMCINOLONE ACET INJ NOS CPT-4: J3301 03/02/2018 ROCEPHIN, PER 250 MG CPT-4: J0696 03/02/2018 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 CPT-4: 16082 08/04/2017 Vital Signs Date Vital 03/02/2018 Blood Pressure 1: 140/80 Code : 8480-6 BMI: 26.5 Code : 69896-0 Heart Rate 1 : 87 bpm Height: 5'7" SpO2: 95% Temperature: 36.7 (C) / 98.1 (F) Weight: 169 lbs 01/01/2018 Blood Pressure 1: 134/66 Code : 8480-6 BMI: 26.8 Code : 62978-9 Heart Rate 1 : 65 bpm Height: 5'7" SpO2: 99% Weight: 171 lbs 08/25/2017 Blood Pressure 1: 136/72 Code : 8480-6 BMI: 27.4 Code : 63788-1 Heart Rate 1 : 70 bpm Height: 5'7" SpO2: 96% Weight: 175 lbs 08/04/2017 Blood Pressure 1: 130/78 Code : 8480-6 BMI: 27.6 Code : 76354-0 Heart Rate 1 : 65 bpm Height: 5'7" SpO2: 97% Weight: 176 lbs Functional Status No Functional Status data History of Present Illness Symptom Name Status Result Effective Date Notes Quality acute 2017 None Quality intermittent 03/02/2018 [...] data Encounters Encounter Performer Location Codes Date ( 99117 EST. PATIENT, LEVEL III Diagnosis: Cough[ICD10: R05] Diagnosis: Pneumonia, unspecified organism[ICD10: J18.9] [facility] CPT-4: 71407 03/02/2018 88852 EST. PATIENT, LEVEL III Diagnosis: Pain in left finger(s)[ICD10: M79.645] Diagnosis: Pain in left hand[ICD10: M79.642] Anisha Ortega MD, [facility] CPT -4: 84977 01/01/2018 95543 EST. PATIENT, LEVEL III Diagnosis: Other fatigue[ICD10: R53.83] [facility] CPT-4 : 18547 08/25/2017 OFFICE VISIT, NEW - LEVEL 3 Diagnosis: Other malaise[ICD10: R53.81] Diagnosis: Other fatigue[ICD10: R53.83] Diagnosis: Other hypoglycemia[ICD10: E16.1] Diagnosis: Actinic keratosis[ICD10: L57.0] Diagnosis: Cardiac murmur, unspecified[ICD10: R01.1] [facility] CPT-4: 04383 08/04/2017 Plan of Care Planned Activity Notes Codes Status Date Visit Plan: Pneumonia - Pt has been diagnosed with pneumonia by physical exam. A chest xray has been ordered as have antibiotics. The pt is aware of the diagnosis and the need for acute treatment of this illness. 03/02/2018 Appointment: Reta Gonzalez WPtel: [phone] [place] (30 min) Complex 03/02/2018 Patient Education: Patient Medication Summary Completed 03/02/2018 Care Plan: CHEST X-RAY 2VW FRONTAL&LATL LOINC : 54224-0 Pending 03/02/2018 Appointment: Anisha Whitmore WPtel: [facility] [place] (15 min) Moderate 02/19/2018 Visit Plan: Left hand/thumb pain - The pt is to use prn antiinflammatories to manage acute pain. The patient is to call the office if the pain is worsening or does not improve. 01/01/2018 Appointment: Anisha Whitmore WPtel: [facility] [place] (15 min) Moderate 01/01/2018 Patient Education: Patient Medication Summary Completed 01/01/2018 Care Plan: X-RAY EXAM OF HAND LOINC : 36875-8 Pending 01/01/2018 Visit Plan: Fatigue, malaise, joint complaints - improved since finishing doxy - will have pt monitor symptoms and notify clinic if symptoms return, or with any changes, questions, or concerns. 08/25/2017 Appointment: Anisha Whitmore WPtel: [facility] [place] (15 min) Moderate 08/25/2017 Patient Education: Patient Medication Summary Completed 08/25/2017 Appointment: Anisha Whitmore WPtel: [address] [place], [place] [phone] [place] (30 min) Complex 08/22/2017 Visit Plan: [...] if indicated 08/04/2017 Appointment: Anisha Whitmore [facility]Ptel[facility] [phone] [facility] [address] [place] New Patient 08/04/2017 Patient Education: Patient Medication Summary Completed 08/04/2017 Appointment: Anisha Whitmore WPtel: [phone] [facility] New Patient 07/18/2017 Instructions Comment . Fatigue, [...]
--- OUTSIDE RECORDS SUMMARY | 2018-07-08 11:00 | XMS REPORT | CCD ---
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 08/04/[address]: 9325836 Quit over 10 years ago 08/04/[address]: 725033405 Never drinks alcohol 08/04/2017 Has the patient [...] ProAir HFA 90 mcg/actuation aerosol inhaler RxNorm: 2768378 1-2 Puff(s) INH Q4H as needed 03/04/2018 No Stop Date Active prednisone 20 mg tablet RxNorm: 455119 1 Tablet(s) PO BID 03/0203/06/2018 Inactive start tomorrow -1 q am and 1 q noon cefdinir 300 mg capsule RxNorm: 299311 1 Capsule(s) PO BID 03/08/2018 Active Zithromax Z-Jomar 250 mg tablet RxNorm: 484184 1 Tablet(s) PO UD 03/02/2018 03/06/2018 Inactive ipratropium-albuterol 0.5 mg-3 mg(2.5 mg base)/3 mL nebulization soln RxNorm: 0196057 3 Milliliter(s) INH qid prn 03/02/2018 No Stop Date Active ceftriaxone 500 mg solution for injection RxNorm: 4819684 2 Milliliter(s) Inj 03/02/2018 03/02/2018 Inactive Kenalog 40 mg/mL suspension for injection RxNorm: 6221868 1.5 Milliliter(s) Inj 03/02/2018 03/02/2018 Inactive naproxen 500 mg tablet RxNorm: 134458 1 Tablet(s) PO BID 201701/05/2018 Inactive doxycycline hyclate 100 mg capsule RxNorm: 3985135 1 Capsule(s) PO BID 09/09/2017 09/22/2017 Inactive doxycycline hyclate 100 mg capsule RxNorm: 2073780 1 Capsule(s) PO BID 08/11/2017 08/14/2017 Inactive doxycycline hyclate 100 mg capsule RxNorm: 2946673 1 Capsule(s) PO BID 08/04/2017 08/10/2017 Inactive ProAir HFA 90 mcg/actuation aerosol inhaler RxNorm: 0474322 1-2 Puff(s) INH Q4H as needed No Start Date 03/03/2018 Inactive Medication Administered Medication Codes Instructions Start Date Status ceftriaxone 500 mg solution for injection RxNorm: 5090355 2Milliliter 03/02/2018 No longer Active Kenalog 40 mg/mL suspension for injection RxNorm: 0299679 1.5Milliliter 03/02/2018 No longer Active Immunizations No Immunization data Assessments Condition Codes Effective Dates Pneumonia, unspecified organism ICD-10: J18.9 ICD-9: 486 03/02/2018 Cough ICD-10: R05 ICD-9: 786.2 03/02/2018 Pain in left hand ICD-10: M79.642 ICD-9: [...] Code Result Date Ehrlichia Chaffeensis Antibody Igm 956177 EHRLICHIA CHAFFEENSIS IGM < 1:16 08/08/2017 Ehrlichia Chaffeensis Antibody Igg 253299 EHRLICHIA CHAFFEENSIS IGG 1:256 08/08/2017 [place] Spotted Fever Igg/Igm 654890 [place] SPOTTED FEVER IGM EIA . 08/08/2017 [place] Spotted Fever Igg/Igm 607882 RMSF, IGM 0.42 index 08/08/2017 [place] Spotted Fever Igg/Igm 356554 [place] SPOTTED FEVER IGG EIA FLEX . 08/08/2017 [place] Spotted Fever Igg/Igm 287845 RMSF, IGG SCREEN-FLEX Negative 08/08/2017 Tsh Ord6 TSH (3rd IS) 3.72 uIU/mL 08/05/2017 Free T4 Dqx684 FREE T4 0.98 ng/dL 08/05/2017 Lymes Disease Total Antibodies With Western Blot Reflex 408107 B. BURGDORFERI, IGG/IGM 0.176 08/05/2017 [place] Disease Total Antibodies With Western Blot Reflex 810557 08/05/2017 %Hba1C Rqp414 % HbA1c 69663-9 5.6 % 08/04/2017 %Hba1C Kos017 Gluc Ave 114 mg/dL 08/04/2017 Comp Metabolic Sah873 NA 136 mEq/L 08/04/2017 Comp Metabolic Tyu822 K 4.4 mEq/L 08/04/2017 Comp Metabolic Rvq974 CL 100 mEq/L 08/04/2017 Comp Metabolic Gvg772 CO2 27.0 mEq/L 08/04/2017 Comp Metabolic Wpw185 ANION GAP 13 08/04/2017 Comp Metabolic Uyu020 GLUCOSE 95 mg/dL 08/04/2017 Comp Metabolic Mzs258 Creat 0.8 mg/dL 08/04/2017 Comp Metabolic Ywm557 eGFR 105 ml/min/1.73m2 08/04/2017 Comp Metabolic Hgf897 BUN 28 mg/dL 08/04/2017 Comp Metabolic Xnq569 B/C Ratio 35.0 Ratio 08/04/2017 Comp Metabolic Rbd328 CALCIUM 8.7 mg/dL 08/04/2017 Comp Metabolic Odj994 ALK PHOS 61 U/L 08/04/2017 Comp Metabolic Ldf102 AST(SGOT) 21 U/L 08/04/2017 Comp Metabolic Ods765 ALT(SGPT) 18 U/L 08/04/2017 Comp Metabolic Vfn399 BILI T 0.7 mg/dL 08/04/2017 Comp Metabolic Krk031 ALBUMIN 4.5 g/dL 08/04/2017 Comp Metabolic Yqf571 TPRO 6.7 g/dL 08/04/2017 Comp Metabolic Gfs622 GLOB 2.3 g/dL 08/04/2017 Comp Metabolic Cbz007 A/G Ratio 2.0 Ratio 08/04/2017 Comp Metabolic Nfy612 Osmo 277 mOsmo 08/04/2017 Cbc With Differential [...] 31.1 pg 08/04/2017 Cbc With Differential Ord2 [place]% 8.7 % 08/04/2017 Cbc With Differential Ord2 [...] 1.49 K/ul 08/04/2017 Cbc With Differential Ord2 [place] ABS# 0.6 K/ul 08/04/2017 Cbc With Differential [...] CPT-4: J0696 03/02/2018 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 CPT-4: 65078 08/04/2017 Vital Signs Date Vital 03/02/2018 Blood Pressure 1: 140/80 Code : 8480-6 BMI: 26.5 Code : 50440-5 Heart Rate 1 : 87 bpm Height: 5'7" SpO2: 95% Temperature: 36.7 (C) / 98.1 (F) Weight: 169 lbs 01/01/2018 Blood Pressure 1: 134/66 Code : 8480-6 BMI: 26.8 Code : 32101-9 Heart Rate 1 : 65 bpm Height: 5'7" SpO2: 99% Weight: 171 lbs 08/25/2017 Blood Pressure 1: 136/72 Code : 8480-6 BMI: 27.4 Code : 72465-9 Heart Rate 1 : 70 bpm Height: 5'7" SpO2: 96% Weight: 175 lbs 08/04/2017 Blood Pressure 1: 130/78 Code : 8480-6 BMI: 27.6 Code : 41442-5 Heart Rate 1 : 65 bpm Height: [...] Encounters Encounter Performer Location Codes Date ( 19903 EST. PATIENT, LEVEL III Diagnosis: Cough[ICD10: R05] Diagnosis: Pneumonia, unspecified organism[ICD10: J18.9] [facility] CPT-4: 71834 03/02/2018 66960 EST. PATIENT, LEVEL III Diagnosis: Pain in left finger(s)[ICD10: M79.645] Diagnosis: Pain in left hand[ICD10: M79.642] Anisha Ortega MD, [facility] CPT -4: 48227 01/01/2018 88847 EST. PATIENT, LEVEL III Diagnosis: Other fatigue[ICD10: R53.83] [facility] CPT-4 : 26271 08/25/2017 OFFICE VISIT, NEW - LEVEL 3 Diagnosis: Other malaise[ICD10: R53.81] Diagnosis: Other fatigue[ICD10: R53.83] Diagnosis: Other hypoglycemia[ICD10: E16.1] Diagnosis: Actinic keratosis[ICD10: L57.0] Diagnosis: Cardiac murmur, unspecified[ICD10: R01.1] [facility] CPT-4: 71552 08/04/2017 Plan of Care Planned Activity Notes Codes Status Date Visit Plan: Pneumonia - Pt has been diagnosed with pneumonia by physical exam. A chest xray has been ordered as have antibiotics. The pt is aware of the diagnosis and the need for acute treatment of this illness. 03/02/2018 Appointment: Reta Gonzalez WPtel: [phone] [place] (30 min) Complex 03/02/2018 Patient Education: Patient Medication Summary Completed 03/02/2018 Care Plan: CHEST X-RAY 2VW FRONTAL&LATL LOINC : 31559-9 Pending 03/02/2018 Appointment: Anisha Whitmore WPtel: [facility] [place] (15 min) Moderate 02/19/2018 Visit Plan: Left hand/thumb pain - The pt is to use prn antiinflammatories to manage acute pain. The patient is to call the office if the pain is worsening or does not improve. 01/01/2018 Appointment: Anisha Whitmore WPtel: [facility] [place] (15 min) Moderate 01/01/2018 Patient Education: Patient Medication Summary Completed 01/01/2018 Care Plan: X-RAY EXAM OF HAND LOINC : 47362-8 Pending 01/01/2018 Visit Plan: Fatigue, malaise, joint complaints - improved since finishing doxy - will have pt monitor symptoms and notify clinic if symptoms return, or with any changes, questions, or concerns. 08/25/2017 Appointment: Anisha Whitmore WPtel: [facility] [place] (15 min) Moderate 08/25/2017 Patient Education: Patient Medication Summary Completed 08/25/2017 Appointment: Anisha Whitmore WPtel: [address] [place], [place] [phone] [place] (30 min) Complex 08/22/2017 Visit Plan: [...] if indicated 08/04/2017 [facility] [phone] [facility] [facility] Patient 08/04/2017 Patient Education: Patient Medication Summary Completed 08/04/2017 Appointment: Anisha Whitmore WPtel: [phone] [facility] New Patient 07/18/2017 Instructions Comment . Fatigue, [...]
--- OUTSIDE RECORDS SUMMARY | 2018-07-08 11:01 | XMS REPORT | CCD ---
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/04/[address]: 2234298 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 over 10 years ago 08/04/[address]: 860223838 Never drinks alcohol 08/04/2017 Has the patient [...] Start Date Stop Date Status Fill Instructions ceftriaxone 500 mg solution for injection RxNorm: 3577142 2 Milliliter(s) Inj 03/02/2018 03/02/2018 Inactive Kenalog 40 mg/mL suspension for injection RxNorm: 8876933 1.5 Milliliter(s) Inj 03/02/2018 03/02/2018 Inactive prednisone 20 mg tablet RxNorm: 495654 1 Tablet(s) PO BID 03/0203/06/2018 Active start tomorrow -1 q am and 1 q noon cefdinir 300 mg capsule RxNorm: 619331 1 Capsule(s) PO BID 03/08/2018 Active Zithromax Z-Jomar 250 mg tablet RxNorm: 784744 1 Tablet(s) PO UD 03/02/2018 03/06/2018 Active ipratropium-albuterol 0.5 mg-3 mg(2.5 mg base)/3 mL nebulization soln RxNorm: 1316547 3 Milliliter(s) INH qid prn 03/02/2018 No Stop Date Active naproxen 500 mg tablet RxNorm: 875080 1 Tablet(s) PO BID 201701/05/2018 Inactive doxycycline hyclate 100 mg capsule RxNorm: 1775748 1 Capsule(s) PO BID 09/09/2017 09/22/2017 Inactive doxycycline hyclate 100 mg capsule RxNorm: 9093542 1 Capsule(s) PO BID 08/11/2017 08/14/2017 Inactive doxycycline hyclate 100 mg capsule RxNorm: 6760368 1 Capsule(s) PO BID 08/04/2017 08/10/2017 Inactive Medication Administered Medication Codes Instructions Start Date Status ceftriaxone 500 mg solution for injection RxNorm: 7409799 2Milliliter 03/02/2018 Active Kenalog 40 mg/mL suspension for injection RxNorm: 3564293 1.5Milliliter 03/02/2018 Active Immunizations No Immunization data Assessments Condition [...] Code Result Date Ehrlichia Chaffeensis Antibody Igm 419467 EHRLICHIA CHAFFEENSIS IGM < 1:16 08/08/2017 Ehrlichia Chaffeensis Antibody Igg 946218 EHRLICHIA CHAFFEENSIS IGG 1:256 08/08/2017 [place] Spotted Fever Igg/Igm 571240 [place] SPOTTED FEVER IGM EIA . 08/08/2017 [place] Spotted Fever Igg/Igm 451318 RMSF, IGM 0.42 index 08/08/2017 [place] Spotted Fever Igg/Igm 852997 [place] SPOTTED FEVER IGG EIA FLEX . 08/08/2017 [place] Spotted Fever Igg/Igm 526279 RMSF, IGG SCREEN-FLEX Negative 08/08/2017 Tsh Ord6 TSH (3rd IS) 3.72 uIU/mL 08/05/2017 Free T4 Xuz841 FREE T4 0.98 ng/dL 08/05/2017 Lymes Disease Total Antibodies With Western Blot Reflex 382312 B. BURGDORFERI, IGG/IGM 0.176 08/05/2017 [place] Disease Total Antibodies With Western Blot Reflex 610025 08/05/2017 %Hba1C Iya477 % HbA1c 98981-2 5.6 % 08/04/2017 %Hba1C Vmk617 Gluc Ave 114 mg/dL 08/04/2017 Comp Metabolic Cuh245 NA 136 mEq/L 08/04/2017 Comp Metabolic Ivv591 K 4.4 mEq/L 08/04/2017 Comp Metabolic Xoh565 CL 100 mEq/L 08/04/2017 Comp Metabolic Oaq572 CO2 27.0 mEq/L 08/04/2017 Comp Metabolic Ycz652 ANION GAP 13 08/04/2017 Comp Metabolic Xqz183 GLUCOSE 95 mg/dL 08/04/2017 Comp Metabolic Jor616 Creat 0.8 mg/dL 08/04/2017 Comp Metabolic Jew075 eGFR 105 ml/min/1.73m2 08/04/2017 Comp Metabolic Zzj752 BUN 28 mg/dL 08/04/2017 Comp Metabolic Cyr948 B/C Ratio 35.0 Ratio 08/04/2017 Comp Metabolic Sqr133 CALCIUM 8.7 mg/dL 08/04/2017 Comp Metabolic Oey753 ALK PHOS 61 U/L 08/04/2017 Comp Metabolic Yuq078 AST(SGOT) 21 U/L 08/04/2017 Comp Metabolic Jtl541 ALT(SGPT) 18 U/L 08/04/2017 Comp Metabolic Rrt708 BILI T 0.7 mg/dL 08/04/2017 Comp Metabolic Bsh756 ALBUMIN 4.5 g/dL 08/04/2017 Comp Metabolic Jhz721 TPRO 6.7 g/dL 08/04/2017 Comp Metabolic Qid248 GLOB 2.3 g/dL 08/04/2017 Comp Metabolic Tcw990 A/G Ratio 2.0 Ratio 08/04/2017 Comp Metabolic Cet032 Osmo 277 mOsmo 08/04/2017 Cbc With Differential [...] 31.1 pg 08/04/2017 Cbc With Differential Ord2 [place]% 8.7 % 08/04/2017 Cbc With Differential Ord2 [...] 1.49 K/ul 08/04/2017 Cbc With Differential Ord2 [place] ABS# 0.6 K/ul 08/04/2017 Cbc With Differential [...] CPT-4: J0696 03/02/2018 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 CPT-4: 77429 08/04/2017 Vital Signs Date Vital 03/02/2018 Blood Pressure 1: 140/80 Code : 8480-6 BMI: 26.5 Code : 52885-8 Heart Rate 1 : 87 bpm Height: 5'7" SpO2: 95% Temperature: 36.7 (C) / 98.1 (F) Weight: 169 lbs 01/01/2018 Blood Pressure 1: 134/66 Code : 8480-6 BMI: 26.8 Code : 87105-8 Heart Rate 1 : 65 bpm Height: 5'7" SpO2: 99% Weight: 171 lbs 08/25/2017 Blood Pressure 1: 136/72 Code : 8480-6 BMI: 27.4 Code : 62496-5 Heart Rate 1 : 70 bpm Height: 5'7" SpO2: 96% Weight: 175 lbs 08/04/2017 Blood Pressure 1: 130/78 Code : 8480-6 BMI: 27.6 Code : 20605-4 Heart Rate 1 : 65 bpm Height: [...] data Encounters Encounter Performer Location Codes Date () 16508 EST. PATIENT, LEVEL III Diagnosis: Cough[ICD10: R05] Diagnosis: Pneumonia, unspecified organism[ICD10: J18.9] Reta Ortega MD, [facility] CPT-4: 98458 03/02/2018 10112 EST. PATIENT, LEVEL III Diagnosis: Pain in left finger(s)[ICD10: M79.645] Diagnosis: Pain in left hand[ICD10: M79.642] Anisha Ortega MD, [facility] CPT -4: 62913 01/01/2018 17766 EST. PATIENT, LEVEL III Diagnosis: Other fatigue[ICD10: R53.83] Anisha Ortega MD, [facility] CPT-4 : 47907 08/25/2017 OFFICE VISIT, NEW - LEVEL 3 Diagnosis: Other malaise[ICD10: R53.81] Diagnosis: Other fatigue[ICD10: R53.83] Diagnosis: Other hypoglycemia[ICD10: E16.1] Diagnosis: Actinic keratosis[ICD10: L57.0] Diagnosis: Cardiac murmur, unspecified[ICD10: R01.1] Anisha Ortega MD, [facility] CPT-4: 64368 08/04/2017 Plan of Care Planned Activity Notes Codes Status Date Visit Plan: Pneumonia - Pt has been diagnosed with pneumonia by physical exam. A chest xray has been ordered as have antibiotics. The pt is aware of the diagnosis and the need for acute treatment of this illness. 03/02/2018 Patient Education: Patient Medication Summary Completed 03/02/2018 Care Plan: CHEST X-RAY 2VW FRONTAL&LATL LOINC : 46214-0 Pending 03/02/2018 Appointment: Anisha Whitmore WPtel: [address] [place], [place] [phone] (15 min) Moderate 02/19/2018 Visit Plan: Left hand/thumb pain - The pt is to use prn antiinflammatories to manage acute pain. The patient is to call the office if the pain is worsening or does not improve. 01/01/2018 Appointment: Anisha Whitmore WPtel: [address] [place], [place] [phone] (15 min) Moderate 01/01/2018 Patient Education: Patient Medication Summary Completed 01/01/2018 Care Plan: X-RAY EXAM OF HAND LOINC : 90139-3 Pending 01/01/2018 Visit Plan: Fatigue, malaise, joint complaints - improved since finishing [facility] - will have pt monitor symptoms and notify clinic if symptoms return, or with any changes, questions, or concerns. 08/25/2017 Appointment: Anisha Whitmore WPtel: [address] [place], [place] [phone] (15 min) Moderate 08/25/2017 Patient Education: Patient Medication Summary Completed 08/25/2017 Appointment: Anisha Whitmore WPtel: [address] [place], [place] [phone] (30 min) Complex 08/22/2017 Visit Plan: Fatigue, [...] if indicated 08/04/2017 Appointment: Anisha Whitmore WPtel: [address] [place], [place] [phone] New Patient 08/04/2017 Patient Education: Patient Medication Summary Completed 08/04/2017 Appointment: Anisha Whitmore WPtel: [address] [place], [place] [phone] New Patient 07/18/2017 Instructions Comment . Fatigue, [...]
--- OUTSIDE RECORDS SUMMARY | 2018-07-08 11:02 | XMS REPORT | CCD ---
Author Author Anisha Whitmore MD, 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 Unknown Has never used illegal drugs 08/04/2017 Allergies, Adverse Reactions, Alerts Substance Reaction Codes Entered Date Inactivated Date Status NO KNOWN DRUG ALLERGIES Unknown 08/04/2017 No Inactive Date Active Past Medical History Illness Codes Condition Status Onset Date Resolved Date Pain in left finger(s) ICD-9: 729.5 ICD-10: [...] Problems Condition Codes Effective Dates Condition Status Pain in left finger(s) ICD-9: 729.5 ICD-10: [...] Start Date Stop Date Status Fill Instructions naproxen 500 mg tablet RxNorm: 230370 1 Tablet(s) PO BID 201701/05/2018 Active doxycycline hyclate 100 mg capsule RxNorm: 4323432 1 Capsule(s) PO BID 09/09/2017 09/22/2017 Inactive doxycycline hyclate 100 mg capsule RxNorm: 0704138 1 Capsule(s) PO BID 08/11/2017 08/14/2017 Inactive doxycycline hyclate 100 mg capsule RxNorm: 3682291 1 Capsule(s) PO BID 08/04/2017 08/10/2017 Inactive Medication Administered No Medication Administered data Immunizations No Immunization data Assessments Condition Codes Effective Dates Pain in left hand ICD-10: M79.642 ICD-9: 729.5 01/01/2018 Pain in left finger(s) ICD-10: M79.645 ICD-9: 729.5 01/01/2018 Other fatigue ICD-10: R53.83 ICD-9: 780.79 08/25/2017 Cardiac murmur, unspecified ICD-10: R01.1 ICD-9: 785.2 08/04/2017 Other malaise ICD-10: R53.81 ICD-9: 780.79 08/04/2017 Other hypoglycemia ICD-10: E16.1 ICD-9: 251.1 08/04/2017 Actinic keratosis ICD-10: L57.0 ICD-9: 702.0 08/04/2017 Reason For Visit Reason For Visit Effective Dates Notes thumb and hand pain 01/01/2018 fatigue 08/25/2017 fatigue 08/04/2017 Results Observation Observation Code Item Item Code Result Date Ehrlichia Chaffeensis Antibody Igm 117884 EHRLICHIA CHAFFEENSIS IGM < 1:16 08/08/2017 Ehrlichia Chaffeensis Antibody Igg 574369 EHRLICHIA CHAFFEENSIS IGG 1:256 08/08/2017 [place] Spotted Fever Igg/Igm 595260 [place] SPOTTED FEVER IGM EIA . 08/08/2017 [place] Spotted Fever Igg/Igm 795126 RMSF, IGM 0.42 index 08/08/2017 [place] Spotted Fever Igg/Igm 549638 [place] SPOTTED FEVER IGG EIA FLEX . 08/08/2017 [place] Spotted Fever Igg/Igm 578014 RMSF, IGG SCREEN-FLEX Negative 08/08/2017 Tsh Ord6 TSH (3rd IS) 3.72 uIU/mL 08/05/2017 Free T4 Ggw517 FREE T4 0.98 ng/dL 08/05/2017 [place]ym[place] Total Antibodies With Western Blot Reflex 715767 B. BURGDORFERI, IGG/IGM 0.176 08/05/2017 [place] [facility] Total Antibodies With Western Blot Reflex [id number] 08/05/2017 %Hba1C Soo248 % HbA1c 15312-3 5.6 % 08/04/2017 %Hba1C Aij339 Gluc Ave 114 mg/dL 08/04/2017 Comp Metabolic Lbq232 NA 136 mEq/L 08/04/2017 Comp Metabolic Fqh058 K 4.4 mEq/L 08/04/2017 Comp Metabolic Ano378 CL 100 mEq/L 08/04/2017 Comp Metabolic Iqh689 CO2 27.0 mEq/L 08/04/2017 Comp Metabolic Bdc037 ANION GAP 13 08/04/2017 Comp Metabolic Osz071 GLUCOSE 95 mg/dL 08/04/2017 Comp Metabolic Ozg706 Creat 0.8 mg/dL 08/04/2017 Comp Metabolic Jct762 eGFR 105 ml/min/1.73m2 08/04/2017 Comp Metabolic Iol417 BUN 28 mg/dL 08/04/2017 Comp Metabolic Juy856 B/C Ratio 35.0 Ratio 08/04/2017 Comp Metabolic Gzp359 CALCIUM 8.7 mg/dL 08/04/2017 Comp Metabolic Ona994 ALK PHOS 61 U/L 08/04/2017 Comp Metabolic Kpd697 AST(SGOT) 21 U/L 08/04/2017 Comp Metabolic Stt152 ALT(SGPT) 18 U/L 08/04/2017 Comp Metabolic Bpg469 BILI T 0.7 mg/dL 08/04/2017 Comp Metabolic Tjn891 ALBUMIN 4.5 g/dL 08/04/2017 Comp Metabolic Gyj491 TPRO 6.7 g/dL 08/04/2017 Comp Metabolic Gfw514 GLOB 2.3 g/dL 08/04/2017 Comp Metabolic Wpc881 A/G Ratio 2.0 Ratio 08/04/2017 Comp Metabolic Iqz208 Osmo 277 mOsmo 08/04/2017 Cbc With Differential Ord2 WBC 7.02 K/ul 08/04/2017 Cbc With Differential Ord2 RBC 5.12 M/ul 08/04/2017 Cbc With Differential Ord2 HGB 15.9 g/dl 08/04/2017 Cbc With Differential Ord2 Neut% 67.2 % 08/04/2017 Cbc With Differential Ord2 HCT 46.0 % 08/04/2017 Cbc With Differential Ord2 MCV 89.8 fl 08/04/2017 Cbc With Differential Ord2 Lymph% 21.2 % 08/04/2017 Cbc With Differential Ord2 MCH 31.1 pg 08/04/2017 Cbc With Differential Ord2 [place]% 8.7 % 08/04/2017 Cbc With Differential Ord2 Eos% 2.6 % 08/04/2017 Cbc With Differential Ord2 MCHC 34.6 pg 08/04/2017 Cbc With Differential Ord2 Baso% 0.3 % 08/04/2017 Cbc With Differential Ord2 PLT 231 K/ul 08/04/2017 Cbc With Differential Ord2 Neut ABS# 4.72 K/ul 08/04/2017 Cbc With Differential Ord2 RDW 13.3 % 08/04/2017 Cbc With Differential Ord2 Lymph ABS# 1.49 K/ul 08/04/2017 Cbc With Differential Ord2 [place] ABS# 0.6 K/ul 08/04/2017 Cbc With Differential Ord2 Eos ABS# 0.2 K/ul 08/04/2017 Cbc With Differential Ord2 Baso ABS# 0.0 K/ul 08/04/2017 Lipid Ord30 CHOL 209 mg/dL 08/04/2017 Lipid Ord30 HDL 56.0 mg/dl 08/04/2017 Lipid Ord30 TRIG 98 mg/dL 08/04/2017 Lipid Ord30 LDL 133 mg/dL 08/04/2017 Lipid Ord30 C/HDL 3.7 Ratio 08/04/2017 Review of Systems System Result Effective Dates Constitutional No recent illness 2017 Constitutional No [...] Result Effective Dates Notes Full Exam - Orthopedics Constitutional general appearance [...] contact 08/04/2017 None Procedures Procedure Codes Date 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 CPT-4: 53034 08/04/2017 Vital Signs Date Vital 01/01/2018 Blood Pressure 1: 134/66 Code : 8480-6 BMI: 26.8 Code : 28499-6 Heart Rate 1 : 65 bpm Height: 5'7" SpO2: 99% Weight: 171 lbs 08/25/2017 Blood Pressure 1: 136/72 Code : 8480-6 BMI: 27.4 Code : 83074-9 Heart Rate 1 : 70 bpm Height: 5'7" SpO2: 96% Weight: 175 lbs 08/04/2017 Blood Pressure 1: 130/78 Code : 8480-6 BMI: 27.6 Code : 13941-0 Heart Rate 1 : 65 bpm Height: 5'7" SpO2: 97% Weight: 176 lbs Functional Status No Functional Status data History of Present Illness Symptom Name Status Result Effective Date Notes thumb and hand pain Alleviating Factors finger [...] data Encounters Encounter Performer Location Codes Date [address] EST. PATIENT, LEVEL III Diagnosis: Pain in left finger(s)[ICD10: M79.645] Diagnosis: Pain in left hand[ICD10: M79.642] [facility] CPT -4: 45881 01/01/2018 96207 EST. PATIENT, LEVEL III Diagnosis: Other fatigue[ICD10: R53.83] [facility] CPT-4 : 41395 08/25/2017 OFFICE VISIT, NEW - LEVEL 3 Diagnosis: Other malaise[ICD10: R53.81] Diagnosis: Other fatigue[ICD10: R53.83] Diagnosis: Other hypoglycemia[ICD10: E16.1] Diagnosis: Actinic keratosis[ICD10: L57.0] Diagnosis: Cardiac murmur, unspecified[ICD10: R01.1] [facility] CPT-4: 68659 08/04/2017 Plan of Care Planned Activity Notes Codes Status Date Visit Plan: Left hand/thumb pain - The pt is to use prn antiinflammatories to manage acute pain. The patient is to call the office if the pain is worsening or does not improve. 01/01/2018 Patient Education: Patient Medication Summary Completed 01/01/2018 Care Plan: X-RAY EXAM OF HAND LOINC : 90244-5 Pending 01/01/2018 Visit Plan: Fatigue, malaise, joint complaints - improved since finishing doxy - will have pt monitor symptoms and notify clinic if symptoms return, or with any changes, questions, or concerns. 08/25/2017 Appointment: Anisha Whitmore WPtel[facility] (15 min) Moderate 08/25/2017 Patient Education: Patient Medication Summary Completed 08/25/2017 Appointment: [facility] Whit[facility]el[facility] [phone] [facility] (30 min) Complex 08/22/2017 Visit Plan: Fatigue, [...] cardiology if indicated 08/04/2017 Appointment: Anisha Whitmoretel: [phone] [facility] New Patient 08/04/2017 Patient Education: Patient Medication Summary Completed 08/04/2017 Appointment: Anisha Whitmoretel: [phone] [facility] New Patient 07/18/2017 Instructions Comment . Fatigue, malaise, joint complaints - improved since finishing doxy - will have pt monitor symptoms and notify clinic if symptoms return, or with any changes, questions, or concerns. . Fatigue, Malaise, tick bite - will [...]
--- OUTSIDE RECORDS SUMMARY | 2018-07-08 11:02 | XMS REPORT | CCD ---
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 08/04/[address]: 9247374 Quit over 10 years ago 08/04/[address]: 727931141 Never drinks alcohol 08/04/2017 Has the patient [...] Fill Instructions naproxen 500 mg tablet RxNorm: 959701 1 Tablet(s) PO BID 201701/05/2018 Active doxycycline hyclate 100 mg capsule RxNorm: 3726801 1 Capsule(s) PO BID 09/09/2017 09/22/2017 Inactive doxycycline hyclate 100 mg capsule RxNorm: 2983282 1 Capsule(s) PO BID 08/11/2017 08/14/2017 Inactive doxycycline hyclate 100 mg capsule RxNorm: 6387911 1 Capsule(s) PO BID 08/04/2017 08/10/2017 Inactive [...] Code Result Date Ehrlichia Chaffeensis Antibody Igm 860687 EHRLICHIA CHAFFEENSIS IGM < 1:16 08/08/2017 Ehrlichia Chaffeensis Antibody Igg 935915 EHRLICHIA CHAFFEENSIS IGG 1:256 08/08/2017 [place] Spotted Fever Igg/Igm 734825 [place] SPOTTED FEVER IGM EIA . 08/08/2017 [place] Spotted Fever Igg/Igm 146220 RMSF, IGM 0.42 index 08/08/2017 [place] Spotted Fever Igg/Igm 054878 [place] SPOTTED FEVER IGG EIA FLEX . 08/08/2017 [place] Spotted Fever Igg/Igm 730756 RMSF, IGG SCREEN-FLEX Negative 08/08/2017 Tsh Ord6 TSH (3rd IS) 3.72 uIU/mL 08/05/2017 Free T4 Qwa360 FREE T4 0.98 ng/dL 08/05/2017 Lymes Disease Total Antibodies With Western Blot Reflex 557937 B. BURGDORFERI, IGG/IGM 0.176 08/05/2017 [place] [facility] Total Antibodies With Western Blot Reflex 857935 08/05/2017 %Hba1C Tad531 % HbA1c 20252-2 5.6 % 08/04/2017 %Hba1C Ejw361 Gluc Ave 114 mg/dL 08/04/2017 Comp Metabolic Uwr908 NA 136 mEq/L 08/04/2017 Comp Metabolic Bcc249 K 4.4 mEq/L 08/04/2017 Comp Metabolic Xjc409 CL 100 mEq/L 08/04/2017 Comp Metabolic Mjo844 CO2 27.0 mEq/L 08/04/2017 Comp Metabolic Dat632 ANION GAP 13 08/04/2017 Comp Metabolic Stg563 GLUCOSE 95 mg/dL 08/04/2017 Comp Metabolic Sfa111 Creat 0.8 mg/dL 08/04/2017 Comp Metabolic Wgy701 eGFR 105 ml/min/1.73m2 08/04/2017 Comp Metabolic Kqc245 BUN 28 mg/dL 08/04/2017 Comp Metabolic Crf037 B/C Ratio 35.0 Ratio 08/04/2017 Comp Metabolic Gqn854 CALCIUM 8.7 mg/dL 08/04/2017 Comp Metabolic Une980 ALK PHOS 61 U/L 08/04/2017 Comp Metabolic Zie273 AST(SGOT) 21 U/L 08/04/2017 Comp Metabolic Psu100 ALT(SGPT) 18 U/L 08/04/2017 Comp Metabolic Bod776 BILI T 0.7 mg/dL 08/04/2017 Comp Metabolic Piv239 ALBUMIN 4.5 g/dL 08/04/2017 Comp Metabolic Zve190 TPRO 6.7 g/dL 08/04/2017 Comp Metabolic Ytp925 GLOB 2.3 g/dL 08/04/2017 Comp Metabolic Mxi574 A/G Ratio 2.0 Ratio 08/04/2017 Comp Metabolic Dka344 Osmo 277 mOsmo 08/04/2017 Cbc With Differential [...] 31.1 pg 08/04/2017 Cbc With Differential Ord2 Rich% 8.7 % 08/04/2017 Cbc With Differential Ord2 [...] 1.49 K/ul 08/04/2017 Cbc With Differential Ord2 Rich ABS# 0.6 K/ul 08/04/2017 Cbc With Differential [...] Procedure Codes Date 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 CPT-4: 42630 08/04/2017 Vital Signs Date Vital 01/01/2018 Blood Pressure 1: 134/66 Code : 8480-6 BMI: 26.8 Code : 90274-9 Heart Rate 1 : 65 bpm Height: 5'7" SpO2: 99% Weight: 171 lbs 08/25/2017 Blood Pressure 1: 136/72 Code : 8480-6 BMI: 27.4 Code : 55335-4 Heart Rate 1 : 70 bpm Height: 5'7" SpO2: 96% Weight: 175 lbs 08/04/2017 Blood Pressure 1: 130/78 Code : 8480-6 BMI: 27.6 Code : 64261-6 Heart Rate 1 : 65 bpm Height: [...] data Encounters Encounter Performer Location Codes Date 58[address] EST. PATIENT, LEVEL III Diagnosis: Pain in left finger(s)[ICD10: M79.645] Diagnosis: Pain in left hand[ICD10: M79.642] [facility] CPT -4: 04055 01/01/2018 44602 EST. PATIENT, LEVEL III Diagnosis: Other fatigue[ICD10: R53.83] [facility] CPT-4 : 26823 08/25/2017 OFFICE VISIT, NEW - LEVEL 3 Diagnosis: Other malaise[ICD10: R53.81] Diagnosis: Other fatigue[ICD10: R53.83] Diagnosis: Other hypoglycemia[ICD10: E16.1] Diagnosis: Actinic keratosis[ICD10: L57.0] Diagnosis: Cardiac murmur, unspecified[ICD10: R01.1] [facility] CPT-4: 01215 08/04/2017 Plan of Care Planned Activity Notes Codes Status Date Visit Plan: Left hand/thumb pain - The pt is to use prn antiinflammatories to manage acute pain. The patient is to call the office if the pain is worsening or does not improve. 01/01/2018 Patient Education: Patient Medication Summary Completed 01/01/2018 Care Plan: X-RAY EXAM OF HAND LOINC : 62724-7 Pending 01/01/2018 Visit Plan: Fatigue, malaise, joint complaints - improved since finishing doxy - will have pt monitor symptoms and notify clinic if symptoms return, or with any changes, questions, or concerns. 08/25/2017 Appointment: Anisha Whitmore WPtel: [facility] (15 min) Moderate 08/25/2017 Patient Education: Patient Medication Summary Completed 08/25/2017 Appointment: [facility] Whit[facility]el[facility] [phone] [facility] (30 min) Complex 08/22/2017 Visit Plan: Fatigue, [...] if indicated 08/04/2017 Appointment: Anisha Whitmoretel: [phone] [facility] New Patient 08/04/2017 Patient Education: Patient Medication Summary Completed 08/04/2017 Appointment: Anisha Whitmoretel: [phone] [facility] New Patient 07/18/2017 Instructions Comment . [...]
--- NOTE | 2018-07-08 14:19 | NUR ---
iv dc'd cath intact on removal, reviewed dc instructions and signed papers, will receive a call for appt with surgeon, cont with same appt follow up
== END 2018-07-08 16:00 | disposition home or self-care (01) ==
LOC: CATH 07:34 → SDC 10:32 → CATH 16:00
PROVIDERS: ATTEND Internal Medicine Cardiovascular Disease
DX: I51.7 Cardiomegaly (principal); R06.09 Other forms of dyspnea; I34.0 Nonrheumatic mitral (valve) insufficiency; R06.2 Wheezing; Z87.891 Personal history of nicotine dependence; Z86.19 Personal history of other infectious and parasitic diseases; Z79.899 Other long term (current) drug therapy
CPT/HCPCS: 36415; 71045; 80053; 80061; 85027; 85610; 85730; 87081; 93312; 93320; 93325

== ENCOUNTER → 2018-07-08 | Outpatient (CLI) | payer BC ==
[~2018-07-08] MED LIST: ALB0.5V INH; RT-ALBUINH IH
--- NOTE | 2018-07-08 09:00 | Cardiac Procedure Note-CS/ASA ---
Pre-Procedure Note Pre-Op Procedure Note H&P Reviewed The H&P was reviewed, patient examined and no changes noted. Date H&P Reviewed: July 08, 2018 Time H&P Reviewed: 08:00 Conscious Sedation Pre-Proced Time 08:00 ASA Score 3 For ASA 3 and 4: Consider anesthesia and medical clearance. Also, for patients with a history of failed moderate sedation consider anesthesia. Airway Lungs Heart ASA score ASA 1: a normal healthy patient ASA 2: a patient with a mild systemic disease (mid diabetes, controlled hypertension, obesity x ASA 3: a patient with a severe systemic disease that limits activity (angina , COPD, prior Myocardial infarction) ASA 4: a patient with an incapacitating disease that is a constant threat to life (CHF, renal failure) ASA 5: a moribund patient not expected to survive 24 hrs. (ruptured aneurysm) ASA 6: a declared brain- patient whose organs are being harvested. For emergent operations, add the letter E after the classification Mallampati Classification Grade 3 Sedation Plan Analgesia, Amnesia, Plan communicated to team members, Discussed options with patient/fam, Discussed risks with patient/fam The patient is an appropriate candidate to undergo the planned procedure, sedation, and anesthesia. The patient immediately re-assessed prior to indication. TEJINDER EAGLE MD July 08, 2018 09:00
== END ==
LOC: CARD 13:18
PROVIDERS: ATTEND Internal Medicine Cardiovascular Disease
DX: I34.0 Nonrheumatic mitral (valve) insufficiency (principal); R06.09 Other forms of dyspnea; I51.7 Cardiomegaly
CPT/HCPCS: 93351

== ENCOUNTER → 2018-07-20 | Outpatient (CLI) | payer BC ==
[~2018-07-20] MED LIST changes: +RT-ALBUTEROL SULF 2.5 MG/3 ML PRE-MIX VIAL INH ONE
== END ==
LOC: RT 09:08
PROVIDERS: ATTEND Internal Medicine Cardiovascular Disease
DX: R06.09 Other forms of dyspnea (principal); I34.0 Nonrheumatic mitral (valve) insufficiency
CPT/HCPCS: 94060; 94726; 94729

== ENCOUNTER 2018-08-05 11:47 | Day surgery (SDC) | payer BC ==
[2018-08-05] VITALS (11 sets, daily range): BP systolic 113–159; BP diastolic 69–87
[~2018-08-05] VITALS: Ht 170.2 cm; Wt 79.4 kg
[~2018-08-05 11:47] MED LIST changes: -RT-ALBUTEROL SULF 2.5 MG/3 ML PRE-MIX VIAL INH ONE
--- OUTSIDE RECORDS SUMMARY | 2018-08-05 11:51 | XMS REPORT | CCD ---
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 Unknown Has never used illegal drugs 08/04/2017 Allergies, Adverse Reactions, Alerts Substance Reaction Codes Entered Date Inactivated Date Status NO KNOWN DRUG ALLERGIES Unknown 08/04/2017 No Inactive Date Active Past Medical History Illness Codes Condition Status Onset Date Resolved Date Cardiac murmur, unspecified ICD-9: 785.2 ICD-10: R01.1 Active 08/04/2017 Unknown Chronic obstructive pulmonary disease, unspecified ICD-9: 496 ICD-10: J44.9 Active 07/23/2018 Unknown Essential (primary) hypertension ICD-9: 401.1 ICD-10: I10 Active 07/23/2018 Unknown Acute bronchitis due to other specified organisms ICD-9: 466.0 ICD-10: J20.8 Active 06/25/2018 Unknown Periapical abscess without sinus ICD-9: 522.5 ICD-10: K04.7 Active 05/07/2018 Unknown Cough ICD-9: 786.2 ICD-10: R05 Active 03/02/2018 Unknown Pneumonia, unspecified organism ICD-9: 486 ICD-10: J18.9 Active 03/02/2018 Unknown Pain in left finger(s) ICD-9: 729.5 ICD-10: M79.645 Active 01/01/2018 Unknown Pain in left hand ICD-9: 729.5 ICD-10: M79.642 Active 01/01/2018 Unknown Other fatigue ICD-9: 780.79 ICD-10: R53.83 Active 08/04/2017 Unknown Actinic keratosis ICD-9: 702.0 ICD-10: L57.0 Active 08/04/2017 Unknown Other hypoglycemia ICD- 9: 251.1 ICD-10: E16.1 Active 08/04/2017 Unknown Other malaise ICD-9: 780.79 ICD-10: R53.81 Active 08/04/2017 Unknown Problems Condition Codes Effective Dates Condition Status Cardiac murmur, unspecified ICD-9: 785.2 ICD-10: R01.1 08/04/2017 Active Chronic obstructive pulmonary disease, unspecified ICD-9: 496 ICD-10: J44.9 07/23/2018 Active Essential (primary) hypertension ICD-9: 401.1 ICD-10: I10 07/23/2018 Active Acute bronchitis due to other specified organisms ICD-9: 466.0 ICD-10: J20.8 06/25/2018 Active Periapical abscess without sinus ICD-9: 522.5 ICD-10: K04.7 05/07/2018 Active Cough ICD-9: 786.2 ICD-10: R05 03/02/2018 Active Pneumonia, unspecified organism ICD-9: 486 ICD-10: J18.9 03/02/2018 Active Pain in left finger(s) ICD-9: 729.5 ICD-10: M79.645 01/01/2018 Active Pain in left hand ICD-9: 729.5 ICD-10: M79.642 01/01/2018 Active Other fatigue ICD-9: 780.79 ICD-10: R53.83 08/04/2017 Active Actinic keratosis ICD-9: 702.0 ICD-10: L57.0 08/04/2017 Active Other hypoglycemia ICD- 9: 251.1 ICD-10: E16.1 08/04/2017 Active Other malaise ICD-9: 780.79 ICD-10: R53.81 08/04/2017 Active Medications Medication Codes Instructions Start Date Stop Date Status Fill Instructions albuterol sulfate 2.5 mg/3 mL (0.083 %) solution for nebulization RxNorm: 236952 3 Milliliter(s) INH UD 07/29/2018 No Stop Date Active 4 times a day x 3 days, then 3 times a day x 3 days, then twice a day x 3 days, then as needed- DX: J44.9 ProAir HFA 90 mcg/actuation aerosol inhaler RxNorm: 005021 1-2 Puff(s) INH Q4H as needed 07/23/2018 No Stop Date Active Breo Ellipta 100 mcg-25 mcg/dose powder for inhalation RxNorm: 9529598 1 INH daily 07/22/2018 09/19/2018 Active qty suff for 30 days Breo Ellipta 100 mcg-25 mcg/dose powder for inhalation RxNorm: 1692559 1 INH daily 07/22/2018 07/21/2018 Inactive albuterol sulfate 2.5 mg/3 mL (0.083 %) solution for nebulization RxNorm: 005065 3 Milliliter(s) INH UD 07/21/2018 07/28/2018 Inactive 4 times a day x 3 days, then 3 times a day x 3 days, then twice a day x 3 days, then as needed ProAir HFA 90 mcg/actuation aerosol inhaler RxNorm: 313686 1-2 Puff(s) INH Q4H as needed 06/26/2018 07/22/2018 Inactive ceftriaxone 500 mg solution for injection RxNorm: 5597972 Inj 06/25/2018 06/25/2018 Inactive Zithromax Z-Jomar 250 mg tablet RxNorm: 860170 1 Tablet(s) PO UD 06/25/2018 06/29/2018 Inactive cefdinir 300 mg capsule RxNorm: 295680 1 Capsule(s) PO BID 06/25/2018 07/01/2018 Inactive Kenalog 40 mg/mL suspension for injection RxNorm: 8750394 Milliliter(s) Inj 06/25/2018 06/25/2018 Inactive albuterol sulfate 2.5 mg/3 mL (0.083 %) solution for nebulization RxNorm: 151804 3 Milliliter(s) INH UD 06/25/2018 07/20/2018 Inactive 4 times a day x 3 days, then 3 times a day x 3 days, then twice a day x 3 days, then as needed prednisone 10 mg tablet RxNorm: 116912 Tablet(s) PO UD 06/24/2018 07/08/2018 Inactive 60,50,40,30,20,10 clindamycin HCl 300 mg capsule RxNorm: 218664 1 Capsule(s) PO TID 05/07/2018 05/16/2018 Inactive Levaquin 500 mg tablet RxNorm: 393278 1 Tablet(s) PO daily 04/03/2018 04/09/2018 Inactive ipratropium-albuterol 0.5 mg-3 mg(2.5 mg base)/3 mL nebulization soln RxNorm: 7753743 3 Milliliter(s) INH qid prn 03/16/2018 No Stop Date Active Kenalog 40 mg/mL suspension for injection RxNorm: 5159729 Milliliter(s) Inj 03/16/2018 03/16/2018 Inactive prednisone 10 mg tablet RxNorm: 503084 Tablet(s) PO UD 03/16/2018 06/23/2018 Inactive 60,60,50,50,40,40,30,30,20,20,10,10 Levaquin 500 mg tablet RxNorm: 187684 1 Tablet(s) PO daily 03/16/2018 03/22/2018 Inactive ProAir HFA 90 mcg/actuation aerosol inhaler RxNorm: 553294 1-2 Puff(s) INH Q4H as needed 03/04/2018 06/25/2018 Inactive ceftriaxone 500 mg solution for injection RxNorm: 2810019 2 Milliliter(s) Inj 03/02/2018 03/02/2018 Inactive Kenalog 40 mg/mL suspension for injection RxNorm: 5361825 1.5 Milliliter(s) Inj 03/02/2018 03/02/2018 Inactive prednisone 20 mg tablet RxNorm: 731651 1 Tablet(s) PO BID 03/02/2018 03/06/2018 Inactive start tomorrow -1 q am and 1 q noon cefdinir 300 mg capsule RxNorm: 868971 1 Capsule(s) PO BID 03/02/2018 03/08/2018 Inactive Zithromax Z-Jomar 250 mg tablet RxNorm: 884629 1 Tablet(s) PO UD 03/02/2018 03/06/2018 Inactive ipratropium-albuterol 0.5 mg-3 mg(2.5 mg base)/3 mL nebulization soln RxNorm: 2990489 3 Milliliter(s) INH qid prn 03/02/2018 03/15/2018 Inactive naproxen 500 mg tablet RxNorm: 895360 1 Tablet(s) PO BID 01/01/2018 01/05/2018 Inactive doxycycline hyclate 100 mg capsule RxNorm: 7363628 1 Capsule(s) PO BID 09/09/2017 09/22/2017 Inactive doxycycline hyclate 100 mg capsule RxNorm: 0921876 1 Capsule(s) PO BID 08/11/2017 08/14/2017 Inactive doxycycline hyclate 100 mg capsule RxNorm: 4101910 1 Capsule(s) PO BID 08/04/2017 08/10/2017 Inactive ProAir HFA 90 mcg/actuation aerosol inhaler RxNorm: 3928413 1-2 Puff(s) INH Q4H as needed No Start Date 03/03/2018 Inactive prednisone 10 mg tablet RxNorm: 556856 Tablet(s) PO No Start Date 03/15/2018 Inactive 60,60,50,50,40,40,30,30,20,20,10,10 Medication Administered Medication Codes Instructions Start Date Status Kenalog 40 mg/mL suspension for injection RxNorm: 3432394 Milliliter 06/25/2018 No longer Active ceftriaxone 500 mg solution for injection RxNorm: 5614601 06/25/2018 No longer Active Kenalog 40 mg/mL suspension for injection RxNorm: 0686776 Milliliter 03/16/2018 No longer Active Kenalog 40 mg/mL suspension for injection RxNorm: 9015389 1.5Milliliter 03/02/2018 No longer Active ceftriaxone 500 mg solution for injection RxNorm: 2444811 2Milliliter 03/02/2018 No longer Active Immunizations No Immunization data Assessments Condition Codes Effective Dates Cardiac murmur, unspecified ICD-10: R01.1 ICD-9: 785.2 07/23/2018 Essential (primary) hypertension ICD-10: I10 ICD-9: 401.1 07/23/2018 Chronic obstructive pulmonary disease, unspecified ICD-10: J44.9 ICD-9: 496 07/23/2018 Acute bronchitis due to other specified organisms [...] Visit Reason For Visit Effective Dates Notes dyspnea 07/23/2018 sinus congestion 06/25/2018 oral pain 05/07/2018 cough 03/16/2018 cough 03/02/2018 thumb and hand pain 01/01/2018 fatigue 08/25/2017 fatigue 08/04/2017 Results Observation Observation Code Item Item Code Result Date Ehrlichia Chaffeensis Antibody Igm 043959 EHRLICHIA CHAFFEENSIS IGM < 1:16 08/08/2017 Ehrlichia Chaffeensis Antibody Igg 848254 EHRLICHIA CHAFFEENSIS IGG 1:256 08/08/2017 [place] Spotted Fever Igg/Igm 264905 LEXA MT SPOTTED FEVER IGM EIA . 08/08/2017 [place] Spotted Fever Igg/Igm 898641 RMSF, IGM 0.42 index 08/08/2017 [place] Spotted Fever Igg/Igm 163103 LEXA MT SPOTTED FEVER IGG EIA FLEX . 08/08/2017 [place] Spotted Fever Igg/Igm 209206 RMSF, IGG SCREEN-FLEX Negative 08/08/2017 Tsh Ord6 TSH (3rd IS) 3.72 uIU/mL 08/05/2017 Free T4 Ftz057 FREE T4 0.98 ng/dL 08/05/2017 Lymes Disease Total Antibodies With Western Blot Reflex 375643 B. BURGDORFERI, IGG/IGM 0.176 08/05/2017 Lymes Disease Total Antibodies With Western Blot Reflex [id number] 08/05/2017 %Hba1C Lfe598 % HbA1c 51271- 6 5.6 % 08/04/2017 %Hba1C Spe340 Gluc Ave 114 mg/dL 08/04/2017 Comp Metabolic Klr006 NA 136 mEq/L 08/04/2017 Comp Metabolic Wfk518 K 4.4 mEq/L 08/04/2017 Comp Metabolic Sko915 CL 100 mEq/L 08/04/2017 Comp Metabolic Jhx095 CO2 27.0 mEq/L 08/04/2017 Comp Metabolic Jho826 ANION GAP 13 08/04/2017 Comp Metabolic Dkt471 GLUCOSE 95 mg/dL 08/04/2017 Comp Metabolic Azv876 Creat 0.8 mg/dL 08/04/2017 Comp Metabolic Gft043 eGFR 105 ml/min/1.73m2 08/04/2017 Comp Metabolic Qks107 BUN 28 mg/dL 08/04/2017 Comp Metabolic Rwg094 B/C Ratio 35.0 Ratio 08/04/2017 Comp Metabolic Nbp429 CALCIUM 8.7 mg/dL 08/04/2017 Comp Metabolic Sgq613 ALK PHOS 61 U/L 08/04/2017 Comp Metabolic Wvh675 AST(SGOT) 21 U/L 08/04/2017 Comp Metabolic Lgj453 ALT(SGPT) 18 U/L 08/04/2017 Comp Metabolic Jgz434 BILI T 0.7 mg/dL 08/04/2017 Comp Metabolic Qra750 ALBUMIN 4.5 g/dL 08/04/2017 Comp Metabolic Ubh566 TPRO 6.7 g/dL 08/04/2017 Comp Metabolic Vwj608 GLOB 2.3 g/dL 08/04/2017 Comp Metabolic Gfb274 A/G Ratio 2.0 Ratio 08/04/2017 Comp Metabolic Dmd241 Osmo 277 mOsmo 08/04/2017 Cbc With Differential [...] 31.1 pg 08/04/2017 Cbc With Differential Ord2 [place]% 8.7 % 08/04/2017 Cbc With Differential Ord2 [...] 1.49 K/ul 08/04/2017 Cbc With Differential Ord2 [place] ABS# 0.6 K/ul 08/04/2017 Cbc With Differential Ord2 Eos ABS# 0.2 K/ul 08/04/2017 Cbc With Differential Ord2 Baso ABS# 0.0 K/ul 08/04/2017 Lipid Ord30 CHOL 209 mg/dL 08/04/2017 Lipid Ord30 HDL 56.0 mg/dl 08/04/2017 Lipid Ord30 TRIG 98 mg/dL 08/04/2017 Lipid Ord30 LDL 133 mg/dL 08/04/2017 Lipid Ord30 C/HDL 3.7 Ratio 08/04/2017 Review of Systems System Result Effective Dates Constitutional No recent illness 07/23/2018 Constitutional No chills 07/23/2018 Constitutional No diaphoresis 07/23/2018 Constitutional No fever 07/23/2018 Eyes No eye erythema 07/23/2018 Ears/Nose/Throat/Neck No nasal discharge 07/23/2018 Cardiovascular No chest pain/pressure 07/23/2018 Respiratory No chest congestion 07/23/2018 Respiratory No cough 07/23/2018 Gastrointestinal No abdominal pain 07/23/2018 Neurologic No alteration of consciousness 07/23/2018 Neurologic No mental status change 07/23/2018 Constitutional fatigue 07/23/2018 Cardiovascular exercise intolerance 07/23/2018 Cardiovascular No palpitations 07/23/2018 Cardiovascular No near-syncope/dizziness 07/23/2018 Respiratory dyspnea on exertion 07/23/2018 Respiratory No dyspnea 07/23/2018 Respiratory wheezing 07/23/2018 Constitutional recent illness 06/25/2018 Constitutional chills 06/25/2018 Constitutional fever 06/25/2018 Eyes No eye erythema 06/25/2018 Ears/Nose/Throat/Neck nasal allergies 06/25/2018 Ears/Nose/Throat/Neck nasal discharge 06/25/2018 Ears/Nose/Throat/Neck postnasal drip 06/25/2018 Ears/Nose/Throat/Neck sinus congestion 06/25/2018 Cardiovascular No chest pain/pressure 06/25/2018 Respiratory productive sputum 06/25/2018 Respiratory cough 06/25/2018 Respiratory wheezing 06/25/2018 Gastrointestinal No abdominal pain 06/25/2018 Musculoskeletal No joint complaint 06/25/2018 Dermatologic No rash 06/25/2018 Neurologic No alteration of consciousness 06/25/2018 Neurologic No mental status change 06/25/2018 Constitutional No recent illness 05/07/2018 Constitutional No chills 05/07/2018 Constitutional No diaphoresis 05/07/2018 Constitutional No fever 05/07/2018 Eyes No eye erythema 05/07/2018 Ears/Nose/Throat/Neck No nasal discharge 05/07/2018 Cardiovascular No chest pain/pressure 05/07/2018 Cardiovascular No dyspnea 05/07/2018 Respiratory No cough 05/07/2018 Ears/Nose/Throat/Neck dental pain 05/07/2018 Gastrointestinal No abdominal pain 05/07/2018 Neurologic No alteration of consciousness 05/07/2018 Neurologic No mental status change 05/07/2018 Constitutional recent illness 03/16/2018 Constitutional No night sweats 03/16/2018 Constitutional No fever 03/16/2018 Eyes No eye discharge 03/16/2018 Eyes No eye erythema 03/16/2018 Cardiovascular No chest pain/pressure 03/16/2018 Cardiovascular No edema 03/16/2018 Respiratory productive sputum 03/16/2018 Respiratory chest congestion 03/16/2018 Respiratory cough 03/16/2018 Gastrointestinal No abdominal pain 03/16/2018 Gastrointestinal No constipation 03/16/2018 Gastrointestinal No diarrhea 03/16/2018 Gastrointestinal No vomiting 03/16/2018 Musculoskeletal No joint complaint 03/16/2018 Dermatologic No rash 03/16/2018 Neurologic No alteration of consciousness 03/16/2018 Constitutional fatigue 03/16/2018 Constitutional No chills 03/16/2018 Ears/Nose/Throat/Neck nasal discharge 03/16/2018 Ears/Nose/Throat/Neck nasal allergies 03/16/2018 Ears/Nose/Throat/Neck postnasal drip 03/16/2018 Ears/Nose/Throat/Neck No sinus congestion 03/16/2018 Respiratory No dyspnea 03/16/2018 Respiratory dyspnea on exertion 03/16/2018 Neurologic No mental status change 03/16/2018 Constitutional recent illness 03/02/2018 Constitutional anorexia 03/02/2018 Constitutional No night sweats 03/02/2018 Constitutional diaphoresis 03/02/2018 Constitutional fatigue 03/02/2018 Constitutional No fever 03/02/2018 Constitutional insomnia 03/02/2018 Constitutional No malaise 03/02/2018 Constitutional No weight loss 03/02/2018 Constitutional No weight gain 03/02/2018 Eyes No eye erythema 03/02/2018 Eyes No eye discharge 03/02/2018 Ears/Nose/Throat/Neck No dizziness 03/02/2018 Ears/Nose/Throat/Neck headache 03/02/2018 Ears/Nose/Throat/Neck nasal discharge 03/02/2018 Ears/Nose/Throat/Neck No otalgia 03/02/2018 Ears/Nose/Throat/Neck sore throat 03/02/2018 Cardiovascular No chest pain/pressure 03/02/2018 Cardiovascular No edema 03/02/2018 Respiratory productive sputum 03/02/2018 Respiratory chest congestion 03/02/2018 Respiratory cough 03/02/2018 Gastrointestinal No vomiting 03/02/2018 Gastrointestinal No abdominal pain 03/02/2018 Gastrointestinal No constipation 03/02/2018 Gastrointestinal No diarrhea 03/02/2018 Genitourinary/Nephrology No dysuria 03/02/2018 Musculoskeletal No joint complaint 03/02/2018 Dermatologic No rash 03/02/2018 Neurologic No alteration of consciousness 03/02/2018 Constitutional No recent illness 01/01/2018 Constitutional No chills 01/01/2018 Constitutional No fever 01/01/2018 Eyes No eye erythema 01/01/2018 Ears/Nose/Throat/Neck No nasal discharge 01/01/2018 Cardiovascular No chest pain/pressure 01/01/2018 Cardiovascular No dyspnea 01/01/2018 Respiratory No cough 01/01/2018 Respiratory No dyspnea 01/01/2018 Musculoskeletal joint complaint 01/01/2018 Neurologic No alteration of consciousness 01/01/2018 Neurologic No mental status change 01/01/2018 Constitutional recent illness 08/25/2017 Constitutional No chills 08/25/2017 Constitutional No diaphoresis 08/25/2017 Constitutional No fever 08/25/2017 Eyes No eye erythema 08/25/2017 Ears/Nose/Throat/Neck No nasal discharge 08/25/2017 Cardiovascular No chest pain/pressure 08/25/2017 Cardiovascular No dyspnea 08/25/2017 Respiratory No cough 08/25/2017 Respiratory No chest congestion 08/25/2017 Gastrointestinal No abdominal pain 08/25/2017 Musculoskeletal No joint complaint 08/25/2017 Dermatologic No rash 08/25/2017 Neurologic No alteration of consciousness 08/25/2017 Neurologic No mental status change 08/25/2017 Constitutional No recent illness 08/04/2017 Constitutional No chills 08/04/2017 Constitutional No diaphoresis 08/04/2017 Constitutional No fever 08/04/2017 Constitutional fatigue 08/04/2017 Constitutional malaise 08/04/2017 Eyes No eye erythema 08/04/2017 Ears/Nose/Throat/Neck No nasal discharge 08/04/2017 Ears/Nose/Throat/Neck No nasal allergies 08/04/2017 Cardiovascular No chest pain/pressure 08/04/2017 Cardiovascular No dyspnea 08/04/2017 Respiratory No cough 08/04/2017 Respiratory No chest congestion 08/04/2017 Gastrointestinal No abdominal pain 08/04/2017 Gastrointestinal No constipation 08/04/2017 Gastrointestinal No diarrhea 08/04/2017 Gastrointestinal No vomiting 08/04/2017 Gastrointestinal No nausea 08/04/2017 Gastrointestinal No melena 08/04/2017 Gastrointestinal No hematochezia 08/04/2017 Musculoskeletal No joint complaint 08/04/2017 Dermatologic actinic keratosis 08/04/2017 Neurologic No alteration of consciousness 08/04/2017 Neurologic No mental status change 08/04/2017 Physical Exam Exam Name System Name Item Name Status Result Effective Dates Notes Full Exam - General 1994 Constitutional general appearance Overall: well developed 07/23/2018 None Full Exam - General 1994 Constitutional general appearance Overall: in no acute distress 07/23/2018 None Full Exam - General 1994 Constitutional general appearance Overall: well nourished 07/23/2018 None Full Exam - General 1994 Eyes conjunctiva/eyelids Overall: conjunctiva clear 07/23/2018 None Full Exam - General 1994 Eyes conjunctiva/eyelids Overall: cornea clear 07/23/2018 None Full Exam - General 1994 Eyes conjunctiva/eyelids Overall: eyelids normal 07/23/2018 None Full Exam - General 1994 Ears/Nose/Throat lips/teeth/gingiva Overall: benign lips 07/23/2018 None Full Exam - General 1995 Ears/Nose/Throat oral cavity/pharynx/larynx Overall: oral mucosa clear 07/23/2018 None Full Exam - General 1994 Ears/Nose/Throat oral cavity/pharynx/larynx Overall: oropharyngeal mucosa clear 07/23/2018 None Full Exam - General 1994 Respiratory auscultation Overall: breath sounds clear bilaterally 07/23/2018 None Full Exam - General 1994 Respiratory respiratory effort/rhythm Overall: no retractions 07/23/2018 None Full Exam - General 1994 Respiratory respiratory effort/rhythm Overall: normal rate 07/23/2018 None Full Exam - General 1994 Musculoskeletal head and neck Overall: head atraumatic 07/23/2018 None Full Exam - General 1994 Neurologic cranial nerves Overall: crainial nerves 2 - 12 grossly intact 07/23/2018 None Full Exam - General 1994 Psychiatric orientation/consciousness Overall: oriented to person, place and time 07/23/2018 None Full Exam - General 1994 Psychiatric mood and affect Overall: normal mood and affect 07/23/2018 None Full Exam - General 1994 Psychiatric appearance Overall: well-groomed, good eye contact 07/23/2018 None Full Exam - General 1994 Cardiovascular auscultation of heart Rate: regular rate 07/23/2018 None Full Exam - General 1994 Cardiovascular auscultation of heart Systolic murmur: holosystolic 07/23/2018 None Full Exam - General 1994 Cardiovascular auscultation of heart Murmur: previously known murmur changed 07/23/2018 None Full Exam - General 1994 Constitutional general appearance Overall: well developed 06/25/2018 None Full Exam - General 1994 Constitutional general appearance Overall: in no acute distress 06/25/2018 None Full Exam - General 1994 Constitutional general appearance Overall: well nourished 06/25/2018 None Full Exam - General 1994 Eyes conjunctiva/eyelids Overall: conjunctiva clear 06/25/2018 None Full Exam - General 1994 Eyes conjunctiva/eyelids Overall: eyelids normal 06/25/2018 None Full Exam - General 1994 Ears/Nose/Throat otoscopic exam Overall: external auditory canals clear 06/25/2018 None Full Exam - General 1995 Ears/Nose/Throat otoscopic exam Tympanic membrane: air-fluid level 06/25/2018 None Full Exam - General 1995 Ears/Nose/Throat lips/teeth/gingiva Overall: benign lips 06/25/2018 None Full Exam - General 1995 Ears/Nose/Throat oral cavity/pharynx/larynx Overall: oral mucosa clear 06/25/2018 None Full Exam - General 1994 Ears/Nose/Throat oral cavity/pharynx/larynx Posterior Pharynx: clear post [...] None Full Exam - General 1994 Eyes conjunctiva/eyelids Overall: eyelids normal 05/07/2018 None Full Exam - General 1994 Eyes conjunctiva/eyelids Overall: cornea clear 05/07/2018 None Full Exam - General 1994 Eyes conjunctiva/eyelids Overall: conjunctiva clear 05/07/2018 None Full Exam [...] None Full Exam - General 1994 Eyes conjunctiva/eyelids Overall: conjunctiva clear 03/16/2018 None Full Exam - General 1994 Eyes conjunctiva/eyelids Overall: cornea clear 03/16/2018 None Full Exam - General 1994 Eyes conjunctiva/eyelids Overall: eyelids normal 03/16/2018 None Full Exam [...] None Full Exam - General 1994 Eyes conjunctiva/eyelids Overall: conjunctiva clear 03/02/2018 None Full Exam - General 1994 Eyes conjunctiva/eyelids Overall: cornea clear 03/02/2018 None Full Exam - General 1994 Eyes conjunctiva/eyelids Overall: eyelids normal 03/02/2018 None Full Exam [...] 01/01/2018 None Full Exam - Orthopedics Eyes conjunctiva/eyelids Overall: conjunctiva clear 01/01/2018 None Full Exam - Orthopedics Eyes conjunctiva/eyelids Overall: eyelids normal 01/01/2018 None Full Exam [...] None Full Exam - General 1994 Eyes conjunctiva/eyelids Overall: conjunctiva clear 08/25/2017 None Full Exam - General 1994 Eyes conjunctiva/eyelids Overall: cornea clear 08/25/2017 None Full Exam - General 1994 Eyes conjunctiva/eyelids Overall: eyelids normal 08/25/2017 None Full Exam [...] None Full Exam - General 1994 Eyes conjunctiva/eyelids Overall: conjunctiva clear 08/04/2017 None Full Exam - General 1994 Eyes conjunctiva/eyelids Overall: cornea clear 08/04/2017 None Full Exam - General 1994 Eyes conjunctiva/eyelids Overall: eyelids normal 08/04/2017 None Full Exam [...] CPT-4: J3301 06/25/2018 ROCEPHIN, PER 250 MG CPT- 4: J0696 06/25/2018 TRIAMCINOLONE ACET INJ NOS CPT-4: J3301 03/16/2018 TRIAMCINOLONE ACET INJ NOS CPT-4: J3301 03/02/2018 ROCEPHIN, PER 250 MG CPT- 4: J0696 03/02/2018 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 CPT-4: 55746 08/04/2017 Vital Signs Date Vital 07/23/2018 Blood Pressure 1: 136/72 Code: 8480-6 Heart Rate 1: 92 bpm Height: SpO2: 95% Weight: 06/25/2018 Blood Pressure 1: 134/60 Code: 8480-6 BMI: 26.6 Code: 16049-7 Heart Rate 1: 80 bpm Height: 5'7" SpO2: 95% Temperature: 37.2 (C) / 99.0 (F) Weight: 170 lbs 05/07/2018 Blood Pressure 1: 144/76 Code: 8480-6 BMI: 26.9 Code: 00665-9 Heart Rate 1: 77 bpm Height: 5'7" SpO2: 98% Weight: 172 lbs 03/16/2018 Blood Pressure 1: 122/68 Code: 8480-6 BMI: 26.6 Code: 23212-8 Heart Rate 1: 88 bpm Height: 5'7" SpO2: 96% Weight: 170 lbs 03/02/2018 Blood Pressure 1: 140/80 Code: 8480-6 BMI: 26.5 Code: 93673-4 Heart Rate 1: 87 bpm Height: 5'7" SpO2: 95% Temperature: 36.7 (C) / 98.1 (F) Weight: 169 lbs 01/01/2018 Blood Pressure 1: 134/66 Code: 8480-6 BMI: 26.8 Code: 93241-5 Heart Rate 1: 65 bpm Height: 5'7" SpO2: 99% Weight: 171 lbs 08/25/2017 Blood Pressure 1: 136/72 Code: 8480-6 BMI: 27.4 Code: 10676-7 Heart Rate 1: 70 bpm Height: 5'7" SpO2: 96% Weight: 175 lbs 08/04/2017 Blood Pressure 1: 130/78 Code: 8480-6 BMI: 27.6 Code: 36341-2 Heart Rate 1: 65 bpm Height: 5'7" SpO2: 97% Weight: 176 lbs Functional Status No Functional Status data History of Present Illness Symptom Name Status Result Effective Date Notes Quality chronic 07/23/2018 None Quality shortness of breath 07/23/2018 None Onset and Resolution ongoing 07/23/2018 None Pertinent Findings Denies fever 07/23/2018 None Quality chronic 07/23/2018 None Onset and Resolution gradual in onset 07/23/2018 None Onset and Resolution ongoing 07/23/2018 None Quality worsening 07/23/2018 None Pertinent Findings Denies fever 07/23/2018 None Pertinent Findings dyspnea 07/23/2018 None Location maxillary sinuses 06/25/2018 None Quality acute 06/25/2018 None Quality acute 06/25/2018 None Location on the right 05/07/2018 None Quality aching 05/07/2018 None Quality constant 05/07/2018 None Quality sharp 05/07/2018 None Onset and Resolution sudden in onset 05/07/2018 None Onset of Symptom 1 weeks ago 05/07/2018 None Frequency of Episodes daily 05/07/2018 None Quality acute 03/16/2018 None Quality intermittent 03/16/2018 None Quality productive 03/16/2018 None Onset and Resolution ongoing 03/16/2018 None [...] Findings sputum production 03/16/2018 (green) Quality constant 03/16/2018 None Onset and Resolution ongoing 03/16/2018 None Quality acute 03/02/2018 None Quality intermittent 03/02/2018 None Onset and Resolution ongoing 03/02/2018 None Onset of Symptom 3 weeks ago 03/02/2018 None Quality productive 03/02/2018 None Pertinent Findings sputum production 03/02/2018 (green) [...] data Encounters Encounter Performer Location Codes Date 87180 EST. PATIENT, LEVEL III Diagnosis: Essential (primary) hypertension[ICD10: I10] Diagnosis: Cardiac murmur, unspecified[ICD10: R01.1] Diagnosis: Chronic obstructive pulmonary disease, unspecified[ICD10: J44.9] [facility] CPT-4: 98750 07/23/2018 79900 EST. PATIENT, LEVEL III Diagnosis: Acute bronchitis due to other specified organisms[ICD10: J20.8] Anisha Ortega MD, [facility] CPT-4: 25506 06/25/2018 14664 EST. PATIENT, LEVEL IV Diagnosis: Periapical abscess without sinus[ICD10: K04.7] Anisha Ortega MD, [facility] CPT-4: 24751 05/07/2018 26812 EST. PATIENT, LEVEL IV Diagnosis: Cough[ICD10: R05] Diagnosis: Pneumonia, unspecified organism[ICD10: J18.9] Anisha Ortega MD, [facility] CPT-4: 69185 03/16/2018 (06691) 25055 EST. PATIENT, LEVEL III Diagnosis: Cough[ICD10: R05] Diagnosis: Pneumonia, unspecified organism[ICD10: J18.9] Reta Ortega MD, [facility] CPT-4: 36662 03/02/2018 17507 EST. PATIENT, LEVEL III Diagnosis: Pain in left finger(s)[ICD10: M79.645] Diagnosis: Pain in left hand[ICD10: M79.642] Anisha Ortega MD, [facility] CPT-4: 97305 01/01/2018 38049 EST. PATIENT, LEVEL III Diagnosis: Other fatigue[ICD10: R53.83] Anisha Ortega MD, [facility] CPT-4: 84263 08/25/2017 OFFICE VISIT, NEW - LEVEL 3 Diagnosis: Other malaise[ICD10: R53.81] Diagnosis: Other fatigue[ICD10: R53.83] Diagnosis: Other hypoglycemia[ICD10: E16.1] Diagnosis: Actinic keratosis[ICD10: L57.0] Diagnosis: Cardiac murmur, unspecified[ICD10: R01.1] Anisha Ortega MD, [facility] CPT-4: 23375 08/04/2017 Plan of Care Planned Activity Notes Codes Status Date Visit Plan: Hypertension - The patient has been counseled to cut back on salt in diet for a no added salt diet, low fat diet, start an exercise program with low weight bearing exercises and higher aerobic activity for heart health. The patient is to check blood pressure readings as an outpatient and either fax, call, or email the readings to the office next week for practitioner to review. The pt is to call for acute concerns. Heart murmur - defer to specialist Obstructive lung defect - will send RX - pt is to notify clinic if symptoms do not improve, if they worsen, or with any changes, questions, or concerns - consider referral to pulmonology 07/23/2018 Appointment: Anisha Whitmore WPtel: [address] [place], [place] [phone] (30 min) Complex 07/23/2018 Patient Education: Patient Medication Summary Completed 07/23/2018 Visit Plan: Bronchitis - acute case of bronchitis identified. Pt has been given antibiotics, breathing treatments as appropriate, and pt has been instructed to call if symptoms are not improved, or if symptoms acutely worsen. 06/25/2018 Appointment: Anisha Whitmore WPtel: [address] [place], [place] [phone] (30 min) Complex 06/25/2018 Patient Education: Patient Medication Summary Completed 06/25/2018 Visit Plan: Dental abscess - will start on abx - pt is to follow up with dentist ROMARIO. Pt is to notify clinic if symptoms do not improve, if they worsen, or with any changes, questions, or concerns. 05/07/2018 Appointment: Anisha Whitmore WPtel: [address] [place], [place] [phone] (30 min) Complex 05/07/2018 Patient Education: Patient Medication Summary Completed 05/07/2018 Appointment: Anisha Whitmore WPtel: [address] [place], [place] [phone] (15 min) Moderate 03/23/2018 Visit Plan: Pneumonia [...] illness. 03/16/2018 App[facility]ment: [facility] [address] [facility] [place] (15 min) Moderate 03/16/2018 Patient Education: Patient Medication Summary Completed 03/16/2018 Care Plan: CHEST X-RAY 2VW FRONTAL&LATL LOINC : 16820-0 Pending 03/16/2018 Visit Plan: Pneumonia - Pt has been diagnosed with pneumonia by physical exam. A chest xray has been ordered as have antibiotics. The pt is aware of the diagnosis and the need for acute treatment of this illness. 03/02/2018 Appointment: Reta Gonzalez [facility] [address] [phone] [place] (30 min) Complex 03/02/2018 Patient Education: Patient Medication Summary Completed 03/02/2018 Care Plan: CHEST X-RAY 2VW FRONTAL&LATL LOINC : 65745-0 Pending 03/02/2018 Appointment: Anisha Whitmore WPtel: [facility] [place] (15 min) Moderate 02/19/2018 Visit Plan: Left hand/thumb pain - The pt is to use prn antiinflammatories to manage acute pain. The patient is to call the office if the pain is worsening or does not improve. 01/01/2018 Appointment: Anisha Whitmore WPtel: [facility] [place] (15 min) Moderate 01/01/2018 Patient Education: Patient Medication Summary Completed 01/01/2018 Care Plan: X-RAY EXAM OF HAND LOINC : 71959-7 Pending 01/01/2018 Visit Plan: Fatigue, malaise, joint complaints - improved since finishing doxy - will have pt monitor symptoms and notify clinic if symptoms return, or with any changes, questions, or concerns. 08/25/2017 Appointment: Anisha Whitmore WPtel: [facility] [place] (15 min) Moderate 08/25/2017 Patient Education: Patient Medication Summary Completed 08/25/2017 Appointment: Anisha Whitmore WPtel: [facility] [place] (30 min) Complex 08/22/2017 Visit Plan: [...] if indicated 08/04/2017 Appointment: Anisha Whitmore WPtel: [facility] [facility] Patient 08/04/2017 Patient Education: Patient Medication Summary Completed 08/04/2017 Appointment: Anisha Whitmore WPtel: [phone] [facility] New Patient 07/18/2017 Instructions Comment . Fatigue, [...] for acute treatment of this illness. . Hypertension - The patient has been counseled to cut back on salt in diet for a no added salt diet, low fat diet, start an exercise program with low weight bearing exercises and higher aerobic activity for heart health. The patient is to check blood pressure readings as an outpatient and either fax, call, or email the readings to the office next week for practitioner to review. The pt is to call for acute concerns. Heart murmur - defer to specialist Obstructive lung defect - will send RX - pt is to notify clinic if symptoms do not improve, if they worsen, or with any changes, questions, or concerns - consider referral to pulmonology . Dental abscess - will start on [...]
--- OUTSIDE RECORDS SUMMARY | 2018-08-05 11:52 | XMS REPORT | CCD ---
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 08/04/[address]: 3555756 Quit over 10 years ago 08/04/[address]: 135449654 Never drinks alcohol 08/04/2017 Has the patient [...] ProAir HFA 90 mcg/actuation aerosol inhaler RxNorm: 132862 1-2 Puff(s) INH Q4H as needed 07/23/2018 No Stop Date Active Breo Ellipta 100 mcg-25 mcg/dose powder for inhalation RxNorm: 5193561 1 INH daily 07/22/2018 09/19/2018 Active qty suff for 30 days Breo Ellipta 100 mcg-25 mcg/dose powder for inhalation RxNorm: 2456477 1 INH daily 07/22/2018 07/21/2018 Inactive albuterol sulfate 2.5 mg/3 mL (0.083 %) solution for nebulization RxNorm: 708191 3 Milliliter(s) INH UD 07/21/2018 No Stop Date Active 4 times a day x 3 days, then 3 times a day x 3 days, then twice a day x 3 days, then as needed ProAir HFA 90 mcg/actuation aerosol inhaler RxNorm: 156318 1-2 Puff(s) INH Q4H as needed 06/26/2018 07/22/2018 Inactive ceftriaxone 500 mg solution for injection RxNorm: 1458806 Inj 06/25/2018 06/25/2018 Inactive Zithromax Z-Jomar 250 mg tablet RxNorm: 827872 1 Tablet(s) PO UD 06/25/2018 06/29/2018 Inactive cefdinir 300 mg capsule RxNorm: 697786 1 Capsule(s) PO BID 06/25/2018 07/01/2018 Inactive Kenalog 40 mg/mL suspension for injection RxNorm: 5441495 Milliliter(s) Inj 06/25/2018 06/25/2018 Inactive albuterol sulfate 2.5 mg/3 mL (0.083 %) solution for nebulization RxNorm: 797575 3 Milliliter(s) INH UD 06/25/2018 07/20/2018 Inactive 4 times a day x 3 days, then 3 times a day x 3 days, then twice a day x 3 days, then as needed prednisone 10 mg tablet RxNorm: 091362 Tablet(s) PO UD 06/24/2018 07/08/2018 Inactive 60,50,40,30,20,10 clindamycin HCl 300 mg capsule RxNorm: 904675 1 Capsule(s) PO TID 05/07/2018 05/16/2018 Inactive Levaquin 500 mg tablet RxNorm: 288815 1 Tablet(s) PO daily 04/03/2018 04/09/2018 Inactive ipratropium-albuterol 0.5 mg-3 mg(2.5 mg base)/3 mL nebulization soln RxNorm: 5969289 3 Milliliter(s) INH qid prn 03/16/2018 No Stop Date Active Kenalog 40 mg/mL suspension for injection RxNorm: 7388668 Milliliter(s) Inj 03/16/2018 03/16/2018 Inactive prednisone 10 mg tablet RxNorm: 321126 Tablet(s) PO UD 03/16/2018 06/23/2018 Inactive 60,60,50,50,40,40,30,30,20,20,10,10 Levaquin 500 mg tablet RxNorm: 990239 1 Tablet(s) PO daily 03/16/2018 03/22/2018 Inactive ProAir HFA 90 mcg/actuation aerosol inhaler RxNorm: 911190 1-2 Puff(s) INH Q4H as needed 03/04/2018 06/25/2018 Inactive ceftriaxone 500 mg solution for injection RxNorm: 6006249 2 Milliliter(s) Inj 03/02/2018 03/02/2018 Inactive Kenalog 40 mg/mL suspension for injection RxNorm: 3686054 1.5 Milliliter(s) Inj 03/02/2018 03/02/2018 Inactive prednisone 20 mg tablet RxNorm: 051755 1 Tablet(s) PO BID 03/02/2018 03/06/2018 Inactive start tomorrow -1 q am and 1 q noon cefdinir 300 mg capsule RxNorm: 585654 1 Capsule(s) PO BID 03/02/2018 03/08/2018 Inactive Zithromax Z-Jomar 250 mg tablet RxNorm: 771904 1 Tablet(s) PO UD 03/02/2018 03/06/2018 Inactive ipratropium-albuterol 0.5 mg-3 mg(2.5 mg base)/3 mL nebulization soln RxNorm: 9385878 3 Milliliter(s) INH qid prn 03/02/2018 03/15/2018 Inactive naproxen 500 mg tablet RxNorm: 845570 1 Tablet(s) PO BID 01/01/2018 01/05/2018 Inactive doxycycline hyclate 100 mg capsule RxNorm: 1578915 1 Capsule(s) PO BID 09/09/2017 09/22/2017 Inactive doxycycline hyclate 100 mg capsule RxNorm: 2131622 1 Capsule(s) PO BID 08/11/2017 08/14/2017 Inactive doxycycline hyclate 100 mg capsule RxNorm: 9063765 1 Capsule(s) PO BID 08/04/2017 08/10/2017 Inactive ProAir HFA 90 mcg/actuation aerosol inhaler RxNorm: 4220290 1-2 Puff(s) INH Q4H as needed No Start Date 03/03/2018 Inactive prednisone 10 mg tablet RxNorm: 891433 Tablet(s) PO No Start Date 03/15/2018 Inactive 60,60,50,50,40,40,30,30,20,20,10,10 Medication Administered Medication Codes Instructions Start Date Status Kenalog 40 mg/mL suspension for injection RxNorm: 5514308 Milliliter 06/25/2018 No longer Active ceftriaxone 500 mg solution for injection RxNorm: 6413508 06/25/2018 No longer Active Kenalog 40 mg/mL suspension for injection RxNorm: 8009422 Milliliter 03/16/2018 No longer Active Kenalog 40 mg/mL suspension for injection RxNorm: 8097934 1.5Milliliter 03/02/2018 No longer Active ceftriaxone 500 mg solution for injection RxNorm: 4847559 2Milliliter 03/02/2018 No longer Active Immunizations No [...] Code Result Date Ehrlichia Chaffeensis Antibody Igm 492005 EHRLICHIA CHAFFEENSIS IGM < 1:16 08/08/2017 Ehrlichia Chaffeensis Antibody Igg 189617 EHRLICHIA CHAFFEENSIS IGG 1:256 08/08/2017 [place] Spotted Fever Igg/Igm 673326 [place] SPOTTED FEVER IGM EIA . 08/08/2017 [place] Spotted Fever Igg/Igm 807812 RMSF, IGM 0.42 index 08/08/2017 [place] Spotted Fever Igg/Igm 445975 [place] SPOTTED FEVER IGG EIA FLEX . 08/08/2017 [place] Spotted Fever Igg/Igm 226987 RMSF, IGG SCREEN-FLEX Negative 08/08/2017 Tsh Ord6 TSH (3rd IS) 3.72 uIU/mL 08/05/2017 Free T4 Orf627 FREE T4 0.98 ng/dL 08/05/2017 [place]ymes Disease Total Antibodies With Western Blot Reflex [id number] B. BURGDORFERI, IGG/IGM 0.176 08/05/2017 [place]ymes Disease Total Antibodies With Western Blot Reflex [id number] 08/05/2017 %Hba1C Vaq702 % HbA1c 60392- 6 5.6 % 08/04/2017 %Hba1C Rvd716 Gluc Ave 114 mg/dL 08/04/2017 Comp Metabolic Zry969 NA 136 mEq/L 08/04/2017 Comp Metabolic Lmv196 K 4.4 mEq/L 08/04/2017 Comp Metabolic Huj284 CL 100 mEq/L 08/04/2017 Comp Metabolic Zsl230 CO2 27.0 mEq/L 08/04/2017 Comp Metabolic Ltf517 ANION GAP 13 08/04/2017 Comp Metabolic Xms205 GLUCOSE 95 mg/dL 08/04/2017 Comp Metabolic Wqe654 Creat 0.8 mg/dL 08/04/2017 Comp Metabolic Eii338 eGFR 105 ml/min/1.73m2 08/04/2017 Comp Metabolic Bwr490 BUN 28 mg/dL 08/04/2017 Comp Metabolic Gsx519 B/C Ratio 35.0 Ratio 08/04/2017 Comp Metabolic Rvy113 CALCIUM 8.7 mg/dL 08/04/2017 Comp Metabolic Zbp567 ALK PHOS 61 U/L 08/04/2017 Comp Metabolic Qze993 AST(SGOT) 21 U/L 08/04/2017 Comp Metabolic Jzo818 ALT(SGPT) 18 U/L 08/04/2017 Comp Metabolic Yld418 BILI T 0.7 mg/dL 08/04/2017 Comp Metabolic Bih417 ALBUMIN 4.5 g/dL 08/04/2017 Comp Metabolic Sjt375 TPRO 6.7 g/dL 08/04/2017 Comp Metabolic Oya949 GLOB 2.3 g/dL 08/04/2017 Comp Metabolic Bwy842 A/G Ratio 2.0 Ratio 08/04/2017 Comp Metabolic Zwz183 Osmo 277 mOsmo 08/04/2017 Cbc With Differential [...] 31.1 pg 08/04/2017 Cbc With Differential Ord2 [place]% 8.7 % 08/04/2017 Cbc With Differential Ord2 [...] 1.49 K/ul 08/04/2017 Cbc With Differential Ord2 [place] ABS# 0.6 K/ul 08/04/2017 Cbc With Differential [...] lips 07/23/2018 None Full Exam - General 1994 [...] General 1994 Ears/Nose/Throat otoscopic exam Tympanic membrane: air-fluid level [...] 4: J0696 03/02/2018 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 CPT-4: 97139 08/04/2017 Vital Signs Date Vital 07/23/2018 Blood Pressure 1: 136/72 Code: 8480-6 Heart Rate 1: 92 bpm Height: SpO2: 95% Weight: 06/25/2018 Blood Pressure 1: 134/60 Code: 8480-6 BMI: 26.6 Code: 25556-1 Heart Rate 1: 80 bpm Height: 5'7" SpO2: 95% Temperature: 37.2 (C) / 99.0 (F) Weight: 170 lbs 05/07/2018 Blood Pressure 1: 144/76 Code: 8480-6 BMI: 26.9 Code: 20653-4 Heart Rate 1: 77 bpm Height: 5'7" SpO2: 98% Weight: 172 lbs 03/16/2018 Blood Pressure 1: 122/68 Code: 8480-6 BMI: 26.6 Code: 03146-7 Heart Rate 1: 88 bpm Height: 5'7" SpO2: 96% Weight: 170 lbs 03/02/2018 Blood Pressure 1: 140/80 Code: 8480-6 BMI: 26.5 Code: 75483-5 Heart Rate 1: 87 bpm Height: 5'7" SpO2: 95% Temperature: 36.7 (C) / 98.1 (F) Weight: 169 lbs 01/01/2018 Blood Pressure 1: 134/66 Code: 8480-6 BMI: 26.8 Code: 73552-3 Heart Rate 1: 65 bpm Height: 5'7" SpO2: 99% Weight: 171 lbs 08/25/2017 Blood Pressure 1: 136/72 Code: 8480-6 BMI: 27.4 Code: 51336-3 Heart Rate 1: 70 bpm Height: 5'7" SpO2: 96% Weight: 175 lbs 08/04/2017 Blood Pressure 1: 130/78 Code: 8480-6 BMI: 27.6 Code: 15566-7 Heart Rate 1: 65 bpm Height: 5'7" [...] Performer Location Codes Date EST. PATIENT, LEVEL III Diagnosis: Essential (primary) hypertension[ICD10: I10] Diagnosis: Cardiac murmur, unspecified[ICD10: R01.1] Diagnosis: Chronic obstructive pulmonary disease, unspecified[ICD10: J44.9] Anisha Ortega MD, [facility] CPT-4: 41436 07/23/2018 24864 EST. PATIENT, LEVEL III Diagnosis: Acute bronchitis due to other specified organisms[ICD10: J20.8] Anisha Otrega MD, [facility] CPT-4: 21862 06/25/2018 06356 EST. PATIENT, LEVEL IV Diagnosis: Periapical abscess without sinus[ICD10: K04.7] Anisha Ortega MD, [facility] CPT-4: 28187 05/07/2018 04091 EST. PATIENT, LEVEL IV Diagnosis: Cough[ICD10: R05] Diagnosis: Pneumonia, unspecified organism[ICD10: J18.9] Anisha Ortega MD, [facility] CPT-4: 26884 03/16/2018 (15223) 48126 EST. PATIENT, LEVEL III Diagnosis: Cough[ICD10: R05] Diagnosis: Pneumonia, unspecified organism[ICD10: J18.9] Reta Ortega MD, [facility] CPT-4: 99686 03/02/2018 24822 EST. PATIENT, LEVEL III Diagnosis: Pain in left finger(s)[ICD10: M79.645] Diagnosis: Pain in left hand[ICD10: M79.642] Anisha Ortega MD, [facility] CPT-4: 49688 01/01/2018 27899 EST. PATIENT, LEVEL III Diagnosis: Other fatigue[ICD10: R53.83] Anisha Ortega MD, [facility] CPT-4: 15142 08/25/2017 OFFICE VISIT, NEW - LEVEL 3 Diagnosis: Other malaise[ICD10: R53.81] Diagnosis: Other fatigue[ICD10: R53.83] Diagnosis: Other hypoglycemia[ICD10: E16.1] Diagnosis: Actinic keratosis[ICD10: L57.0] Diagnosis: Cardiac murmur, unspecified[ICD10: R01.1] Anisha Ortega MD, [facility] CPT-4: 90590 08/04/2017 Plan of Care Planned Activity Notes [...] to pulmonology 07/23/2018 Appointment: Anisha Whitmore WPtel: [facility]5 [facility] (30 min) Complex 07/23/2018 Patient Education: Patient Medication Summary Completed 07/23/2018 Visit Plan: Bronchitis - acute case of bronchitis identified. Pt has been given antibiotics, breathing treatments as appropriate, and pt has been instructed to call if symptoms are not improved, or if symptoms acutely worsen. 06/25/2018 Appointment: Anisha Whitmore WPtel: [facility] (30 min) Complex 06/25/2018 Patient Education: Patient Medication Summary Completed 06/25/2018 Visit Plan: Dental abscess - will start on abx - pt is to follow up with dentist ROMARIO. Pt is to notify clinic if symptoms do not improve, if they worsen, or with any changes, questions, or concerns. 05/07/2018 Appointment: Anisha Whitmore WPtel: [facility] (30 min) Complex 05/07/2018 Patient Education: Patient Medication Summary Completed 05/07/2018 Appointment: Anisha Whitmore WPtel: [address] [place], [place] [phone] (15 min) Moderate 03/23/2018 Visit Plan: Pneumonia [...] this illness. 03/16/2018 Appointment: Anisha Whitmore WPtel: [address] [place], [place] [phone] (15 min) Moderate 03/16/2018 Patient Education: Patient Medication Summary Completed 03/16/2018 Care Plan: CHEST X-RAY 2VW FRONTAL&LATL LOINC : 09715-6 Pending 03/16/2018 Visit Plan: Pneumonia - Pt has been diagnosed with pneumonia by physical exam. A chest xray has been ordered as have antibiotics. The pt is aware of the diagnosis and the need for acute treatment of this illness. 03/02/2018 Appointment: Reta Gonzalez WPtel: [phone] [place] (30 min) Complex 03/02/2018 Patient Education: Patient Medication Summary Completed 03/02/2018 Care Plan: CHEST X-RAY 2VW FRONTAL&LATL LOINC : 11516-9 Pending 03/02/2018 Appointment: Anisha Whitmore WPtel: [facility] [place] (15 min) Moderate 02/19/2018 Visit Plan: Left hand/thumb pain - The pt is to use prn antiinflammatories to manage acute pain. The patient is to call the office if the pain is worsening or does not improve. 01/01/2018 Appointment: Anisha Whitmore WPtel: [facility] [place] (15 min) Moderate 01/01/2018 Patient Education: Patient Medication Summary Completed 01/01/2018 Care Plan: X-RAY EXAM OF HAND LOINC : 31817-5 Pending 01/01/2018 Visit Plan: Fatigue, malaise, joint complaints - improved since finishing doxy - will have pt monitor symptoms and notify clinic if symptoms return, or with any changes, questions, or concerns. 08/25/2017 Appointment: Anisha Whitmore WPtel: [facility] [place] (15 min) Moderate 08/25/2017 Patient Education: Patient Medication Summary Completed 08/25/2017 Appointment: Anisha Whitmore WPtel: [facility] [place] (30 min) Complex 08/22/2017 Visit Plan: [...] if indicated 08/04/2017 [facility]ointment[phone] [facility] [facility] Patient 08/04/2017 Patient Education: Patient Medication Summary Completed 08/04/2017 [facility]ment: [phone] [facility] New Patient 07/18/2017 Instructions Comment . Fatigue, [...]
--- OUTSIDE RECORDS SUMMARY | 2018-08-05 11:53 | XMS REPORT | CCD ---
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/[address]: 3285205 Quit over 10 years ago 08/04/[address]: 943191236 Never drinks alcohol 08/04/2017 Has the patient [...] ProAir HFA 90 mcg/actuation aerosol inhaler RxNorm: 942894 1-2 Puff(s) INH Q4H as needed 07/23/2018 No Stop Date Active Breo Ellipta 100 mcg-25 mcg/dose powder for inhalation RxNorm: 7480217 1 INH daily 07/22/2018 09/19/2018 Active qty suff for 30 days Breo Ellipta 100 mcg-25 mcg/dose powder for inhalation RxNorm: 6080393 1 INH daily 07/22/2018 07/21/2018 Inactive albuterol sulfate 2.5 mg/3 mL (0.083 %) solution for nebulization RxNorm: 196346 3 Milliliter(s) INH UD 07/21/2018 No Stop Date Active 4 times a day x 3 days, then 3 times a day x 3 days, then twice a day x 3 days, then as needed ProAir HFA 90 mcg/actuation aerosol inhaler RxNorm: 193787 1-2 Puff(s) INH Q4H as needed 06/26/2018 07/22/2018 Inactive ceftriaxone 500 mg solution for injection RxNorm: 5181678 Inj 06/25/2018 06/25/2018 Inactive Zithromax Z-Jomar 250 mg tablet RxNorm: 739483 1 Tablet(s) PO UD 06/25/2018 06/29/2018 Inactive cefdinir 300 mg capsule RxNorm: 655842 1 Capsule(s) PO BID 06/25/2018 07/01/2018 Inactive Kenalog 40 mg/mL suspension for injection RxNorm: 9062408 Milliliter(s) Inj 06/25/2018 06/25/2018 Inactive albuterol sulfate 2.5 mg/3 mL (0.083 %) solution for nebulization RxNorm: 544760 3 Milliliter(s) INH UD 06/25/2018 07/20/2018 Inactive 4 times a day x 3 days, then 3 times a day x 3 days, then twice a day x 3 days, then as needed prednisone 10 mg tablet RxNorm: 429334 Tablet(s) PO UD 06/24/2018 07/08/2018 Inactive 60,50,40,30,20,10 clindamycin HCl 300 mg capsule RxNorm: 626014 1 Capsule(s) PO TID 05/07/2018 05/16/2018 Inactive Levaquin 500 mg tablet RxNorm: 174027 1 Tablet(s) PO daily 04/03/2018 04/09/2018 Inactive ipratropium-albuterol 0.5 mg-3 mg(2.5 mg base)/3 mL nebulization soln RxNorm: 9618322 3 Milliliter(s) INH qid prn 03/16/2018 No Stop Date Active Kenalog 40 mg/mL suspension for injection RxNorm: 4463738 Milliliter(s) Inj 03/16/2018 03/16/2018 Inactive prednisone 10 mg tablet RxNorm: 322521 Tablet(s) PO UD 03/16/2018 06/23/2018 Inactive 60,60,50,50,40,40,30,30,20,20,10,10 Levaquin 500 mg tablet RxNorm: 340251 1 Tablet(s) PO daily 03/16/2018 03/22/2018 Inactive ProAir HFA 90 mcg/actuation aerosol inhaler RxNorm: 385334 1-2 Puff(s) INH Q4H as needed 03/04/2018 06/25/2018 Inactive ceftriaxone 500 mg solution for injection RxNorm: 5569088 2 Milliliter(s) Inj 03/02/2018 03/02/2018 Inactive Kenalog 40 mg/mL suspension for injection RxNorm: 5333287 1.5 Milliliter(s) Inj 03/02/2018 03/02/2018 Inactive prednisone 20 mg tablet RxNorm: 438384 1 Tablet(s) PO BID 03/02/2018 03/06/2018 Inactive start tomorrow -1 q am and 1 q noon cefdinir 300 mg capsule RxNorm: 192494 1 Capsule(s) PO BID 03/02/2018 03/08/2018 Inactive Zithromax Z-Jomar 250 mg tablet RxNorm: 599191 1 Tablet(s) PO UD 03/02/2018 03/06/2018 Inactive ipratropium-albuterol 0.5 mg-3 mg(2.5 mg base)/3 mL nebulization soln RxNorm: 8853822 3 Milliliter(s) INH qid prn 03/02/2018 03/15/2018 Inactive naproxen 500 mg tablet RxNorm: 883003 1 Tablet(s) PO BID 01/01/2018 01/05/2018 Inactive doxycycline hyclate 100 mg capsule RxNorm: 1470129 1 Capsule(s) PO BID 09/09/2017 09/22/2017 Inactive doxycycline hyclate 100 mg capsule RxNorm: 1784410 1 Capsule(s) PO BID 08/11/2017 08/14/2017 Inactive doxycycline hyclate 100 mg capsule RxNorm: 2212135 1 Capsule(s) PO BID 08/04/2017 08/10/2017 Inactive ProAir HFA 90 mcg/actuation aerosol inhaler RxNorm: 5044033 1-2 Puff(s) INH Q4H as needed No Start Date 03/03/2018 Inactive prednisone 10 mg tablet RxNorm: 829750 Tablet(s) PO No Start Date 03/15/2018 Inactive 60,60,50,50,40,40,30,30,20,20,10,10 Medication Administered Medication Codes Instructions Start Date Status Kenalog 40 mg/mL suspension for injection RxNorm: 5678072 Milliliter 06/25/2018 No longer Active ceftriaxone 500 mg solution for injection RxNorm: 5855344 06/25/2018 No longer Active Kenalog 40 mg/mL suspension for injection RxNorm: 6831206 Milliliter 03/16/2018 No longer Active Kenalog 40 mg/mL suspension for injection RxNorm: 4911823 1.5Milliliter 03/02/2018 No longer Active ceftriaxone 500 mg solution for injection RxNorm: 1703971 2Milliliter 03/02/2018 No longer Active Immunizations No [...] Code Result Date Ehrlichia Chaffeensis Antibody Igm 941529 EHRLICHIA CHAFFEENSIS IGM < 1:16 08/08/2017 Ehrlichia Chaffeensis Antibody Igg 873229 EHRLICHIA CHAFFEENSIS IGG 1:256 08/08/2017 [place] Spotted Fever Igg/Igm 339210 [place] SPOTTED FEVER IGM EIA . 08/08/2017 [place] Spotted Fever Igg/Igm 740206 RMSF, IGM 0.42 index 08/08/2017 [place] Spotted Fever Igg/Igm 236819 [place] MT SPOTTED FEVER IGG EIA FLEX . 08/08/2017 [place] Spotted Fever Igg/Igm 082153 RMSF, IGG SCREEN-FLEX Negative 08/08/2017 Tsh Ord6 TSH (3rd IS) 3.72 uIU/mL 08/05/2017 Free T4 Bfo021 FREE T4 0.98 ng/dL 08/05/2017 Lymes Disease Total Antibodies With Western Blot Reflex [id number] B. BURGDORFERI, IGG/IGM 0.176 08/05/2017 Lymes Disease Total Antibodies With Western Blot Reflex 173157 08/05/2017 %Hba1C Nvk792 % HbA1c 38067- 6 5.6 % 08/04/2017 %Hba1C Mqm851 Gluc Ave 114 mg/dL 08/04/2017 Comp Metabolic Iuz869 NA 136 mEq/L 08/04/2017 Comp Metabolic Cij552 K 4.4 mEq/L 08/04/2017 Comp Metabolic Zth153 CL 100 mEq/L 08/04/2017 Comp Metabolic Vbw614 CO2 27.0 mEq/L 08/04/2017 Comp Metabolic Tmb527 ANION GAP 13 08/04/2017 Comp Metabolic Fvg434 GLUCOSE 95 mg/dL 08/04/2017 Comp Metabolic Zir199 Creat 0.8 mg/dL 08/04/2017 Comp Metabolic Kau591 eGFR 105 ml/min/1.73m2 08/04/2017 Comp Metabolic Gov199 BUN 28 mg/dL 08/04/2017 Comp Metabolic Dzf080 B/C Ratio 35.0 Ratio 08/04/2017 Comp Metabolic Rmx139 CALCIUM 8.7 mg/dL 08/04/2017 Comp Metabolic Ncc443 ALK PHOS 61 U/L 08/04/2017 Comp Metabolic Fiv272 AST(SGOT) 21 U/L 08/04/2017 Comp Metabolic Lfr290 ALT(SGPT) 18 U/L 08/04/2017 Comp Metabolic Htf447 BILI T 0.7 mg/dL 08/04/2017 Comp Metabolic Zbl054 ALBUMIN 4.5 g/dL 08/04/2017 Comp Metabolic Xcj312 TPRO 6.7 g/dL 08/04/2017 Comp Metabolic Aig303 GLOB 2.3 g/dL 08/04/2017 Comp Metabolic Zmc815 A/G Ratio 2.0 Ratio 08/04/2017 Comp Metabolic Lfu914 Osmo 277 mOsmo 08/04/2017 Cbc With Differential [...] 31.1 pg 08/04/2017 Cbc With Differential Ord2 [place]% 8.7 % 08/04/2017 Cbc With Differential Ord2 [...] 1.49 K/ul 08/04/2017 Cbc With Differential Ord2 [place] ABS# 0.6 K/ul 08/04/2017 Cbc With Differential [...] 4: J0696 03/02/2018 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 CPT-4: 31330 08/04/2017 Vital Signs Date Vital 07/23/2018 Blood Pressure 1: 136/72 Code: 8480-6 Heart Rate 1: 92 bpm Height: SpO2: 95% Weight: 06/25/2018 Blood Pressure 1: 134/60 Code: 8480-6 BMI: 26.6 Code: 51821-2 Heart Rate 1: 80 bpm Height: 5'7" SpO2: 95% Temperature: 37.2 (C) / 99.0 (F) Weight: 170 lbs 05/07/2018 Blood Pressure 1: 144/76 Code: 8480-6 BMI: 26.9 Code: 91907-1 Heart Rate 1: 77 bpm Height: 5'7" SpO2: 98% Weight: 172 lbs 03/16/2018 Blood Pressure 1: 122/68 Code: 8480-6 BMI: 26.6 Code: 24358-5 Heart Rate 1: 88 bpm Height: 5'7" SpO2: 96% Weight: 170 lbs 03/02/2018 Blood Pressure 1: 140/80 Code: 8480-6 BMI: 26.5 Code: 53220-3 Heart Rate 1: 87 bpm Height: 5'7" SpO2: 95% Temperature: 36.7 (C) / 98.1 (F) Weight: 169 lbs 01/01/2018 Blood Pressure 1: 134/66 Code: 8480-6 BMI: 26.8 Code: 90286-5 Heart Rate 1: 65 bpm Height: 5'7" SpO2: 99% Weight: 171 lbs 08/25/2017 Blood Pressure 1: 136/72 Code: 8480-6 BMI: 27.4 Code: 21174-6 Heart Rate 1: 70 bpm Height: 5'7" SpO2: 96% Weight: 175 lbs 08/04/2017 Blood Pressure 1: 130/78 Code: 8480-6 BMI: 27.6 Code: 26001-4 Heart Rate 1: 65 bpm Height: 5'7" [...] pulmonary disease, unspecified[ICD10: J44.9] Anisha Ortega MD, [facility] CPT-4: 18154 07/23/2018 [id number] EST. PATIENT, LEVEL III Diagnosis: Acute bronchitis due to other specified organisms[ICD10: J20.8] Anisha Ortega MD, [facility] CPT-4: 08599 06/25/2018 72727 EST. PATIENT, LEVEL IV Diagnosis: Periapical abscess without sinus[ICD10: K04.7] Anisha Ortega MD, [facility] CPT-4: 57628 05/07/2018 48781 EST. PATIENT, LEVEL IV Diagnosis: Cough[ICD10: R05] Diagnosis: Pneumonia, unspecified organism[ICD10: J18.9] Anisha Ortega MD, [facility] CPT-4: 88259 03/16/2018 ([id number]) 54483 EST. PATIENT, LEVEL III Diagnosis: Cough[ICD10: R05] Diagnosis: Pneumonia, unspecified organism[ICD10: J18.9] Reta Ortega MD, [facility] CPT-4: 31979 03/02/2018 71408 EST. PATIENT, LEVEL III Diagnosis: Pain in left finger(s)[ICD10: M79.645] Diagnosis: Pain in left hand[ICD10: M79.642] Anisha Ortega MD, [facility] CPT-4: 85932 01/01/2018 97023 EST. PATIENT, LEVEL III Diagnosis: Other fatigue[ICD10: R53.83] Anisha Ortega MD, [facility] CPT-4: 35176 08/25/2017 OFFICE VISIT, NEW - LEVEL 3 Diagnosis: Other malaise[ICD10: R53.81] Diagnosis: Other fatigue[ICD10: R53.83] Diagnosis: Other hypoglycemia[ICD10: E16.1] Diagnosis: Actinic keratosis[ICD10: L57.0] Diagnosis: Cardiac murmur, unspecified[ICD10: R01.1] Anisha Ortega MD, [facility] CPT-4: 13180 08/04/2017 Plan of Care Planned Activity Notes [...] to pulmonology 07/23/2018 Appointment: Anisha Whitmore WPtel: [facility] (30 min) Complex 07/23/2018 Patient Education: Patient Medication Summary Completed 07/23/2018 Visit Plan: Bronchitis - acute case of bronchitis identified. Pt has been given antibiotics, breathing treatments as appropriate, and pt has been instructed to call if symptoms are not improved, or if symptoms acutely worsen. 06/25/2018 Appointment: Anisha Whitmore WPtel: [facility] (30 min) Complex 06/25/2018 Patient Education: Patient Medication Summary Completed 06/25/2018 Visit Plan: Dental abscess - will start on abx - pt is to follow up with dentist ROMARIO. Pt is to notify clinic if symptoms do not improve, if they worsen, or with any changes, questions, or concerns. 05/07/2018 Appointment: Anisha Whitmore WPtel: [facility] (30 min) Complex 05/07/2018 Patient Education: Patient Medication Summary Completed 05/07/2018 Appointment: Anisha Whitmore WPtel: [address] [place], [place] [phone] (15 min) Moderate 03/23/2018 Visit Plan: Pneumonia [...] this illness. 03/16/2018 Appointment: Anisha Whitmore WPtel: [address] [place], [place] [phone] (15 min) Moderate 03/16/2018 Patient Education: Patient Medication Summary Completed 03/16/2018 Care Plan: CHEST X-RAY 2VW FRONTAL&LATL LOINC : 41384-3 Pending 03/16/2018 Visit Plan: Pneumonia - Pt has been diagnosed with pneumonia by physical exam. A chest xray has been ordered as have antibiotics. The pt is aware of the diagnosis and the need for acute treatment of this illness. 03/02/2018 Appointment: Reta Gonzalez WPtel: [id number] [place] (30 min) Complex 03/02/2018 Patient Education: Patient Medication Summary Completed 03/02/2018 Care Plan: CHEST X-RAY 2VW FRONTAL&LATL LOINC : 14062-4 Pending 03/02/2018 Appointment: Anisha Whitmore WPtel: [facility] [place] (15 min) Moderate 02/19/2018 Visit Plan: Left hand/thumb pain - The pt is to use prn antiinflammatories to manage acute pain. The patient is to call the office if the pain is worsening or does not improve. 01/01/2018 Appointment: Anisha Whitmore WPtel: [facility] [place] (15 min) Moderate 01/01/2018 Patient Education: Patient Medication Summary Completed 01/01/2018 Care Plan: X-RAY EXAM OF HAND LOINC : 71207-6 Pending 01/01/2018 Visit Plan: Fatigue, malaise, joint complaints - improved since finishing doxy - will have pt monitor symptoms and notify clinic if symptoms return, or with any changes, questions, or concerns. 08/25/2017 Appointment: Anisha Whitmore WPtel: [facility] [place] (15 min) Moderate 08/25/2017 Patient Education: Patient Medication Summary Completed 08/25/2017 Appointment: Anisha Whitmore WPtel: [facility] [place] (30 min) Complex 08/22/2017 Visit Plan: [...] if indicated 08/04/2017 [facility] [phone] [facility] [facility] 08/04/2017 Patient Education: Patient Medication Summary Completed 08/04/2017 [facility]ment: [facility] [phone] [facility] [facility] 07/18/2017 Instructions Comment . [...]
--- OUTSIDE RECORDS SUMMARY | 2018-08-05 11:54 | XMS REPORT | CCD ---
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 08/04/[address]: 8224442 Quit over 10 years ago 08/04/[address]: 640800739 Never drinks alcohol 08/04/2017 Has the patient [...] ICD-9: 702.0 ICD-10: L57.0 Active 08/04/2017 Unknown Cardiac murmur, unspecified ICD-9: 785.2 ICD-10: R01.1 Active 08/04/2017 Unknown Other hypoglycemia ICD- 9: [...] keratosis ICD-9: 702.0 ICD-10: L57.0 08/04/2017 Active Cardiac murmur, unspecified ICD-9: 785.2 ICD-10: R01.1 08/04/2017 Active Other hypoglycemia ICD- 9: 251.1 ICD-10: E16.1 08/04/2017 Active Other malaise ICD-9: 780.79 ICD-10: R53.81 08/04/2017 Active Medications Medication Codes Instructions Start Date Stop Date Status Fill Instructions Breo Ellipta 100 mcg-25 mcg/dose powder for inhalation RxNorm: 7109553 1 INH daily 07/22/2018 09/19/2018 Active qty suff for 30 days Breo Ellipta 100 mcg-25 mcg/dose powder for inhalation RxNorm: 5337606 1 INH daily 07/22/2018 07/21/2018 Inactive albuterol sulfate 2.5 mg/3 mL (0.083 %) solution for nebulization RxNorm: 480115 3 Milliliter(s) INH UD 07/21/2018 No Stop Date Active 4 times a day x 3 days, then 3 times a day x 3 days, then twice a day x 3 days, then as needed ProAir HFA 90 mcg/actuation aerosol inhaler RxNorm: 711381 1-2 Puff(s) INH Q4H as needed 06/26/2018 No Stop Date Active ceftriaxone 500 mg solution for injection RxNorm: 7997625 Inj 06/25/2018 06/25/2018 Inactive Zithromax Z-Jomar 250 mg tablet RxNorm: 872257 1 Tablet(s) PO UD 06/25/2018 06/29/2018 Inactive cefdinir 300 mg capsule RxNorm: 942942 1 Capsule(s) PO BID 06/25/2018 07/01/2018 Inactive Kenalog 40 mg/mL suspension for injection RxNorm: 7053464 Milliliter(s) Inj 06/25/2018 06/25/2018 Inactive albuterol sulfate 2.5 mg/3 mL (0.083 %) solution for nebulization RxNorm: 058241 3 Milliliter(s) INH UD 06/25/2018 07/20/2018 Inactive 4 times a day x 3 days, then 3 times a day x 3 days, then twice a day x 3 days, then as needed prednisone 10 mg tablet RxNorm: 408004 Tablet(s) PO UD 06/24/2018 No Stop Date Active 60,50,40,30,20,10 clindamycin HCl 300 mg capsule RxNorm: 489955 1 Capsule(s) PO TID 05/07/2018 05/16/2018 Inactive Levaquin 500 mg tablet RxNorm: 476764 1 Tablet(s) PO daily 04/03/2018 04/09/2018 Inactive ipratropium-albuterol 0.5 mg-3 mg(2.5 mg base)/3 mL nebulization soln RxNorm: 0829331 3 Milliliter(s) INH qid prn 03/16/2018 No Stop Date Active Kenalog 40 mg/mL suspension for injection RxNorm: 2970505 Milliliter(s) Inj 03/16/2018 03/16/2018 Inactive prednisone 10 mg tablet RxNorm: 020415 Tablet(s) PO UD 03/16/2018 06/23/2018 Inactive 60,60,50,50,40,40,30,30,20,20,10,10 Levaquin 500 mg tablet RxNorm: 829959 1 Tablet(s) PO daily 03/16/2018 03/22/2018 Inactive ProAir HFA 90 mcg/actuation aerosol inhaler RxNorm: 021117 1-2 Puff(s) INH Q4H as needed 03/04/2018 06/25/2018 Inactive ceftriaxone 500 mg solution for injection RxNorm: 4803866 2 Milliliter(s) Inj 03/02/2018 03/02/2018 Inactive Kenalog 40 mg/mL suspension for injection RxNorm: 6230819 1.5 Milliliter(s) Inj 03/02/2018 03/02/2018 Inactive prednisone 20 mg tablet RxNorm: 790370 1 Tablet(s) PO BID 03/02/2018 03/06/2018 Inactive start tomorrow -1 q am and 1 q noon cefdinir 300 mg capsule RxNorm: 528757 1 Capsule(s) PO BID 03/02/2018 03/08/2018 Inactive Zithromax Z-Jomar 250 mg tablet RxNorm: 937434 1 Tablet(s) PO UD 03/02/2018 03/06/2018 Inactive ipratropium-albuterol 0.5 mg-3 mg(2.5 mg base)/3 mL nebulization soln RxNorm: 8133200 3 Milliliter(s) INH qid prn 03/02/2018 03/15/2018 Inactive naproxen 500 mg tablet RxNorm: 440819 1 Tablet(s) PO BID 01/01/2018 01/05/2018 Inactive doxycycline hyclate 100 mg capsule RxNorm: 7081336 1 Capsule(s) PO BID 09/09/2017 09/22/2017 Inactive doxycycline hyclate 100 mg capsule RxNorm: 1079750 1 Capsule(s) PO BID 08/11/2017 08/14/2017 Inactive doxycycline hyclate 100 mg capsule RxNorm: 7722179 1 Capsule(s) PO BID 08/04/2017 08/10/2017 Inactive ProAir HFA 90 mcg/actuation aerosol inhaler RxNorm: 1103162 1-2 Puff(s) INH Q4H as needed No Start Date 03/03/2018 Inactive prednisone 10 mg tablet RxNorm: 765412 Tablet(s) PO No Start Date 03/15/2018 Inactive 60,60,50,50,40,40,30,30,20,20,10,10 Medication Administered Medication Codes Instructions Start Date Status Kenalog 40 mg/mL suspension for injection RxNorm: 3749439 Milliliter 06/25/2018 No longer Active ceftriaxone 500 mg solution for injection RxNorm: 1079509 06/25/2018 No longer Active Kenalog 40 mg/mL suspension for injection RxNorm: 0347207 Milliliter 03/16/2018 No longer Active Kenalog 40 mg/mL suspension for injection RxNorm: 1235323 1.5Milliliter 03/02/2018 No longer Active ceftriaxone 500 mg solution for injection RxNorm: 7272801 2Milliliter 03/02/2018 No longer Active Immunizations No [...] Code Result Date Ehrlichia Chaffeensis Antibody Igm 958031 EHRLICHIA CHAFFEENSIS IGM < 1:16 08/08/2017 Ehrlichia Chaffeensis Antibody Igg 178259 EHRLICHIA CHAFFEENSIS IGG 1:256 08/08/2017 [place] Spotted Fever Igg/Igm 558978 [place] SPOTTED FEVER IGM EIA . 08/08/2017 [place] Spotted Fever Igg/Igm 450964 RMSF, IGM 0.42 index 08/08/2017 [place] Spotted Fever Igg/Igm 749470 [place] SPOTTED FEVER IGG EIA FLEX . 08/08/2017 [place] Spotted Fever Igg/Igm 602113 RMSF, IGG SCREEN-FLEX Negative 08/08/2017 Tsh Ord6 TSH (3rd IS) 3.72 uIU/mL 08/05/2017 Free T4 Prp329 FREE T4 0.98 ng/dL 08/05/2017 Lymes Disease Total Antibodies With Western Blot Reflex [id number] B. BURGDORFERI, IGG/IGM 0.176 08/05/2017 Lymes Disease Total Antibodies With Western Blot Reflex 386266 08/05/2017 %Hba1C Vbw362 % HbA1c 90317- 6 5.6 % 08/04/2017 %Hba1C Rfo380 Gluc Ave 114 mg/dL 08/04/2017 Comp Metabolic Dht587 NA 136 mEq/L 08/04/2017 Comp Metabolic Kde767 K 4.4 mEq/L 08/04/2017 Comp Metabolic Bqr884 CL 100 mEq/L 08/04/2017 Comp Metabolic Pid918 CO2 27.0 mEq/L 08/04/2017 Comp Metabolic Upi942 ANION GAP 13 08/04/2017 Comp Metabolic Lwb776 GLUCOSE 95 mg/dL 08/04/2017 Comp Metabolic Mzm839 Creat 0.8 mg/dL 08/04/2017 Comp Metabolic Ytn508 eGFR 105 ml/min/1.73m2 08/04/2017 Comp Metabolic Ahp200 BUN 28 mg/dL 08/04/2017 Comp Metabolic Opz470 B/C Ratio 35.0 Ratio 08/04/2017 Comp Metabolic Jrq503 CALCIUM 8.7 mg/dL 08/04/2017 Comp Metabolic Cjx386 ALK PHOS 61 U/L 08/04/2017 Comp Metabolic Uml132 AST(SGOT) 21 U/L 08/04/2017 Comp Metabolic Atp218 ALT(SGPT) 18 U/L 08/04/2017 Comp Metabolic Vgj794 BILI T 0.7 mg/dL 08/04/2017 Comp Metabolic Nnk497 ALBUMIN 4.5 g/dL 08/04/2017 Comp Metabolic Ppe628 TPRO 6.7 g/dL 08/04/2017 Comp Metabolic Kdn104 GLOB 2.3 g/dL 08/04/2017 Comp Metabolic Ofi231 A/G Ratio 2.0 Ratio 08/04/2017 Comp Metabolic Ijv604 Osmo 277 mOsmo 08/04/2017 Cbc With Differential [...] 31.1 pg 08/04/2017 Cbc With Differential Ord2 Snyder% 8.7 % 08/04/2017 Cbc With Differential Ord2 [...] 1.49 K/ul 08/04/2017 Cbc With Differential Ord2 Snyder ABS# 0.6 K/ul 08/04/2017 Cbc With Differential [...] nourished 05/07/2018 None Full Exam - General 1995 Eyes conjunctiva/eyelids Overall: eyelids normal 05/07/2018 None Full Exam - General 1994 Eyes conjunctiva/eyelids Overall: cornea clear 05/07/2018 None Full Exam - General 1995 Eyes conjunctiva/eyelids Overall: conjunctiva clear 05/07/2018 None [...] 4: J0696 03/02/2018 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 CPT-4: 62653 08/04/2017 Vital Signs Date Vital 06/25/2018 Blood Pressure 1: 134/60 Code: 8480-6 BMI: 26.6 Code: 14282-7 Heart Rate 1: 80 bpm Height: 5'7" SpO2: 95% Temperature: 37.2 (C) / 99.0 (F) Weight: 170 lbs 05/07/2018 Blood Pressure 1: 144/76 Code: 8480-6 BMI: 26.9 Code: 08240-0 Heart Rate 1: 77 bpm Height: 5'7" SpO2: 98% Weight: 172 lbs 03/16/2018 Blood Pressure 1: 122/68 Code: 8480-6 BMI: 26.6 Code: 67832-8 Heart Rate 1: 88 bpm Height: 5'7" SpO2: 96% Weight: 170 lbs 03/02/2018 Blood Pressure 1: 140/80 Code: 8480-6 BMI: 26.5 Code: 66084-2 Heart Rate 1: 87 bpm Height: 5'7" SpO2: 95% Temperature: 36.7 (C) / 98.1 (F) Weight: 169 lbs 01/01/2018 Blood Pressure 1: 134/66 Code: 8480-6 BMI: 26.8 Code: 72219-0 Heart Rate 1: 65 bpm Height: 5'7" SpO2: 99% Weight: 171 lbs 08/25/2017 Blood Pressure 1: 136/72 Code: 8480-6 BMI: 27.4 Code: 63494-8 Heart Rate 1: 70 bpm Height: 5'7" SpO2: 96% Weight: 175 lbs 08/04/2017 Blood Pressure 1: 130/78 Code: 8480-6 BMI: 27.6 Code: 44183-5 Heart Rate 1: 65 bpm Height: 5'7" [...] Codes Date EST. PATIENT, LEVEL III Diagnosis: Acute bronchitis due to other specified organisms[ICD10: J20.8] [facility] CPT-4: 56061 06/25/2018 07695 EST. PATIENT, LEVEL IV Diagnosis: Periapical abscess without sinus[ICD10: K04.7] [facility] CPT-4: 09295 05/07/2018 97593 EST. PATIENT, LEVEL IV Diagnosis: Cough[ICD10: R05] Diagnosis: Pneumonia, unspecified organism[ICD10: J18.9] [facility] CPT-4: 41192 03/16/2018 (47802) 28346 EST. PATIENT, LEVEL III Diagnosis: Cough[ICD10: R05] Diagnosis: Pneumonia, unspecified organism[ICD10: J18.9] Reta Ortega MD, [facility] CPT-4: 43187 03/02/2018 90013 EST. PATIENT, LEVEL III Diagnosis: Pain in left finger(s)[ICD10: M79.645] Diagnosis: Pain in left hand[ICD10: M79.642] Anisha Ortega MD, [facility] CPT-4: 07978 01/01/2018 15679 EST. PATIENT, LEVEL III Diagnosis: Other fatigue[ICD10: R53.83] Anisha Ortega MD, [facility] CPT-4: 15242 08/25/2017 OFFICE VISIT, NEW - LEVEL 3 Diagnosis: Other malaise[ICD10: R53.81] Diagnosis: Other fatigue[ICD10: R53.83] Diagnosis: Other hypoglycemia[ICD10: E16.1] Diagnosis: Actinic keratosis[ICD10: L57.0] Diagnosis: Cardiac murmur, unspecified[ICD10: R01.1] Anisha Ortega MD, [facility] CPT-4: 59918 08/04/2017 Plan of Care Planned Activity Notes Codes Status Date Visit Plan: Bronchitis - acute case of bronchitis identified. Pt has been given antibiotics, breathing treatments as appropriate, and pt has been instructed to call if symptoms are not improved, or if symptoms acutely worsen. 06/25/2018 Appointment: [id number] ([facility] min[facility] Complex 06/25/2018 Patient Education: Patient Medication Summary Completed 06/25/2018 Visit Plan: Dental abscess - will start on abx - pt is to follow up with dentist ROMARIO. Pt is to notify clinic if symptoms do not improve, if they worsen, or with any changes, questions, or concerns. 05/07/2018 Appointment: Anisha Whitmore [facility] [phone] [id number] (30 min) Complex 05/07/2018 Patient Education: Patient Medication Summary Completed 05/07/2018 Appointment: [facility] Whit[facility] [phone] [facility] [place] (15 min) Moderate 03/23/2018 Visit Plan: [...] this illness. 03/16/2018 Appointment: An[facility] Whitmore [facility]el[facility] [place] (15 min) Moderate 03/16/2018 Patient Education: Patient Medication Summary Completed 03/16/2018 Care Plan: CHEST X-RAY 2VW FRONTAL&LATL LOINC : 19064-3 Pending 03/16/2018 Visit Plan: Pneumonia - Pt has been diagnosed with pneumonia by physical exam. A chest xray has been ordered as have antibiotics. The pt is aware of the diagnosis and the need for acute treatment of this illness. 03/02/2018 Appointment: R[facility] Gonzalez [facility]el[phone] [place] (30 min) Complex 03/02/2018 Patient Education: Patient Medication Summary Completed 03/02/2018 Care Plan: CHEST X-RAY 2VW FRONTAL&LATL LOINC : 78375-0 Pending 03/02/2018 Appointment: Anisha Whitmore [facility]Ptel[facility] [place] (15 min) Moderate 02/19/2018 Visit Plan: Left hand/thumb pain - The pt is to use prn antiinflammatories to manage acute pain. The patient is to call the office if the pain is worsening or does not improve. 01/01/2018 Appointment: Anisha Whitmore [facility]el[facility] [place] (15 min) Moderate 01/01/2018 Patient Education: Patient Medication Summary Completed 01/01/2018 Care Plan: X-RAY EXAM OF HAND LOINC : 80551-9 Pending 01/01/2018 Visit Plan: Fatigue, malaise, joint complaints - improved since finishing doxy - will have pt monitor symptoms and notify clinic if symptoms return, or with any changes, questions, or concerns. 08/25/2017 Appointment: Anisha Whitmore WPtel: [address] [place] [address] (15 min) Moderate 08/25/2017 Patient Education: Patient Medication Summary Completed 08/25/2017 Appointment: Anisha Whitmore WPtel: [address] [place] [address] (30 min) Complex 08/22/2017 Visit Plan: Fatigue, [...] if indicated 08/04/2017 Appointment: Anisha Whitmore WPtel: [address] [place] [address] New Patient 08/04/2017 Patient Education: Patient Medication Summary Completed 08/04/2017 Appointment: Anisha Whitmore WPtel: [address] [place] [address] New Patient 07/18/2017 Instructions Comment . Fatigue, [...]
--- OUTSIDE RECORDS SUMMARY | 2018-08-05 11:55 | XMS REPORT | CCD ---
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 08/04/[address]: 8099268 Quit over 10 years ago 08/04/[address]: 454565134 Never drinks alcohol 08/04/2017 Has the patient [...] mL (0.083 %) solution for nebulization RxNorm: 538732 3 Milliliter(s) INH UD 07/21/2018 No Stop Date Active 4 times a day x 3 days, then 3 times a day x 3 days, then twice a day x 3 days, then as needed ProAir HFA 90 mcg/actuation aerosol inhaler RxNorm: 843381 1-2 Puff(s) INH Q4H as needed 06/26/2018 No Stop Date Active ceftriaxone 500 mg solution for injection RxNorm: 2834240 Inj 06/25/2018 06/25/2018 Inactive Zithromax Z-Jomar 250 mg tablet RxNorm: 405535 1 Tablet(s) PO UD 06/25/2018 06/29/2018 Inactive cefdinir 300 mg capsule RxNorm: 568738 1 Capsule(s) PO BID 06/25/2018 07/01/2018 Inactive Kenalog 40 mg/mL suspension for injection RxNorm: 5786956 Milliliter(s) Inj 06/25/2018 06/25/2018 Inactive albuterol sulfate 2.5 mg/3 mL (0.083 %) solution for nebulization RxNorm: 480642 3 Milliliter(s) INH UD 06/25/2018 07/20/2018 Inactive 4 times a day x 3 days, then 3 times a day x 3 days, then twice a day x 3 days, then as needed prednisone 10 mg tablet RxNorm: 839444 Tablet(s) PO UD 06/24/2018 No Stop Date Active 60,50,40,30,20,10 clindamycin HCl 300 mg capsule RxNorm: 513109 1 Capsule(s) PO TID 05/07/2018 05/16/2018 Inactive Levaquin 500 mg tablet RxNorm: 947021 1 Tablet(s) PO daily 04/03/2018 04/09/2018 Inactive ipratropium-albuterol 0.5 mg-3 mg(2.5 mg base)/3 mL nebulization soln RxNorm: 4258875 3 Milliliter(s) INH qid prn 03/16/2018 No Stop Date Active Kenalog 40 mg/mL suspension for injection RxNorm: 9851066 Milliliter(s) Inj 03/16/2018 03/16/2018 Inactive prednisone 10 mg tablet RxNorm: 902041 Tablet(s) PO UD 03/16/2018 06/23/2018 Inactive 60,60,50,50,40,40,30,30,20,20,10,10 Levaquin 500 mg tablet RxNorm: 720761 1 Tablet(s) PO daily 03/16/2018 03/22/2018 Inactive ProAir HFA 90 mcg/actuation aerosol inhaler RxNorm: 171201 1-2 Puff(s) INH Q4H as needed 03/04/2018 06/25/2018 Inactive ceftriaxone 500 mg solution for injection RxNorm: 5503915 2 Milliliter(s) Inj 03/02/2018 03/02/2018 Inactive Kenalog 40 mg/mL suspension for injection RxNorm: 4486119 1.5 Milliliter(s) Inj 03/02/2018 03/02/2018 Inactive prednisone 20 mg tablet RxNorm: 151417 1 Tablet(s) PO BID 03/02/2018 03/06/2018 Inactive start tomorrow -1 q am and 1 q noon cefdinir 300 mg capsule RxNorm: 558589 1 Capsule(s) PO BID 03/02/2018 03/08/2018 Inactive Zithromax Z-Jomar 250 mg tablet RxNorm: 610134 1 Tablet(s) PO UD 03/02/2018 03/06/2018 Inactive ipratropium-albuterol 0.5 mg-3 mg(2.5 mg base)/3 mL nebulization soln RxNorm: 5320558 3 Milliliter(s) INH qid prn 03/02/2018 03/15/2018 Inactive naproxen 500 mg tablet RxNorm: 551728 1 Tablet(s) PO BID 01/01/2018 01/05/2018 Inactive doxycycline hyclate 100 mg capsule RxNorm: 4869616 1 Capsule(s) PO BID 09/09/2017 09/22/2017 Inactive doxycycline hyclate 100 mg capsule RxNorm: 9442452 1 Capsule(s) PO BID 08/11/2017 08/14/2017 Inactive doxycycline hyclate 100 mg capsule RxNorm: 3518724 1 Capsule(s) PO BID 08/04/2017 08/10/2017 Inactive ProAir HFA 90 mcg/actuation aerosol inhaler RxNorm: 5445823 1-2 Puff(s) INH Q4H as needed No Start Date 03/03/2018 Inactive prednisone 10 mg tablet RxNorm: 886580 Tablet(s) PO No Start Date 03/15/2018 Inactive 60,60,50,50,40,40,30,30,20,20,10,10 Medication Administered Medication Codes Instructions Start Date Status Kenalog 40 mg/mL suspension for injection RxNorm: 7613899 Milliliter 06/25/2018 No longer Active ceftriaxone 500 mg solution for injection RxNorm: 0468849 06/25/2018 No longer Active Kenalog 40 mg/mL suspension for injection RxNorm: 5984782 Milliliter 03/16/2018 No longer Active Kenalog 40 mg/mL suspension for injection RxNorm: 3764756 1.5Milliliter 03/02/2018 No longer Active ceftriaxone 500 mg solution for injection RxNorm: 9142204 2Milliliter 03/02/2018 No longer Active Immunizations No [...] Code Result Date Ehrlichia Chaffeensis Antibody Igm 558355 EHRLICHIA CHAFFEENSIS IGM < 1:16 08/08/2017 Ehrlichia Chaffeensis Antibody Igg 566090 EHRLICHIA CHAFFEENSIS IGG 1:256 08/08/2017 [place] Spotted Fever Igg/Igm 691369 [place] SPOTTED FEVER IGM EIA . 08/08/2017 [place] Spotted Fever Igg/Igm 416537 RMSF, IGM 0.42 index 08/08/2017 [place] Spotted Fever Igg/Igm 405012 [place] SPOTTED FEVER IGG EIA FLEX . 08/08/2017 [place] Spotted Fever Igg/Igm 015446 RMSF, IGG SCREEN-FLEX Negative 08/08/2017 Tsh Ord6 TSH (3rd IS) 3.72 uIU/mL 08/05/2017 Free T4 Gxi226 FREE T4 0.98 ng/dL 08/05/2017 [place]ymes Disease Total Antibodies With Western Blot Reflex 677958 B. BURGDORFERI, IGG/IGM 0.176 08/05/2017 [place]ymes Disease Total Antibodies With Western Blot Reflex 087448 08/05/2017 %Hba1C Rqr863 % HbA1c 89895- 6 5.6 % 08/04/2017 %Hba1C Lbg347 Gluc Ave 114 mg/dL 08/04/2017 Comp Metabolic Lxb057 NA 136 mEq/L 08/04/2017 Comp Metabolic Kyj655 K 4.4 mEq/L 08/04/2017 Comp Metabolic Teb012 CL 100 mEq/L 08/04/2017 Comp Metabolic Fqi622 CO2 27.0 mEq/L 08/04/2017 Comp Metabolic Myn319 ANION GAP 13 08/04/2017 Comp Metabolic Niw168 GLUCOSE 95 mg/dL 08/04/2017 Comp Metabolic Ccx401 Creat 0.8 mg/dL 08/04/2017 Comp Metabolic Wph146 eGFR 105 ml/min/1.73m2 08/04/2017 Comp Metabolic War851 BUN 28 mg/dL 08/04/2017 Comp Metabolic Xcq790 B/C Ratio 35.0 Ratio 08/04/2017 Comp Metabolic Iti381 CALCIUM 8.7 mg/dL 08/04/2017 Comp Metabolic Fxz481 ALK PHOS 61 U/L 08/04/2017 Comp Metabolic Rlx987 AST(SGOT) 21 U/L 08/04/2017 Comp Metabolic Hmn058 ALT(SGPT) 18 U/L 08/04/2017 Comp Metabolic Ype886 BILI T 0.7 mg/dL 08/04/2017 Comp Metabolic Vfo810 ALBUMIN 4.5 g/dL 08/04/2017 Comp Metabolic Tku783 TPRO 6.7 g/dL 08/04/2017 Comp Metabolic Vqj840 GLOB 2.3 g/dL 08/04/2017 Comp Metabolic Fnm677 A/G Ratio 2.0 Ratio 08/04/2017 Comp Metabolic Rcj326 Osmo 277 mOsmo 08/04/2017 Cbc With Differential [...] 31.1 pg 08/04/2017 Cbc With Differential Ord2 [place]% 8.7 % 08/04/2017 Cbc With Differential Ord2 [...] 1.49 K/ul 08/04/2017 Cbc With Differential Ord2 [place] ABS# 0.6 K/ul 08/04/2017 Cbc With Differential [...] joint 01/01/2018 None Full Exam - General 1995 Constitutional general appearance Overall: well developed 08/25/2017 [...] 4: J0696 03/02/2018 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 CPT-4: 81857 08/04/2017 Vital Signs Date Vital 06/25/2018 Blood Pressure 1: 134/60 Code: 8480-6 BMI: 26.6 Code: 51438-4 Heart Rate 1: 80 bpm Height: 5'7" SpO2: 95% Temperature: 37.2 (C) / 99.0 (F) Weight: 170 lbs 05/07/2018 Blood Pressure 1: 144/76 Code: 8480-6 BMI: 26.9 Code: 22968-4 Heart Rate 1: 77 bpm Height: 5'7" SpO2: 98% Weight: 172 lbs 03/16/2018 Blood Pressure 1: 122/68 Code: 8480-6 BMI: 26.6 Code: 15206-3 Heart Rate 1: 88 bpm Height: 5'7" SpO2: 96% Weight: 170 lbs 03/02/2018 Blood Pressure 1: 140/80 Code: 8480-6 BMI: 26.5 Code: 44936-7 Heart Rate 1: 87 bpm Height: 5'7" SpO2: 95% Temperature: 36.7 (C) / 98.1 (F) Weight: 169 lbs 01/01/2018 Blood Pressure 1: 134/66 Code: 8480-6 BMI: 26.8 Code: 42155-2 Heart Rate 1: 65 bpm Height: 5'7" SpO2: 99% Weight: 171 lbs 08/25/2017 Blood Pressure 1: 136/72 Code: 8480-6 BMI: 27.4 Code: 15759-2 Heart Rate 1: 70 bpm Height: 5'7" SpO2: 96% Weight: 175 lbs 08/04/2017 Blood Pressure 1: 130/78 Code: 8480-6 BMI: 27.6 Code: 13495-2 Heart Rate 1: 65 bpm Height: 5'7" [...] other specified organisms[ICD10: J20.8] Anisha Ortega MD, [facility] CPT-4: 53042 06/25/2018 76673 EST. PATIENT, LEVEL IV Diagnosis: Periapical abscess without sinus[ICD10: K04.7] Anisha Ortega MD, [facility] CPT-4: 85841 05/07/2018 35592 EST. PATIENT, LEVEL IV Diagnosis: Cough[ICD10: R05] Diagnosis: Pneumonia, unspecified organism[ICD10: J18.9] Anisha Ortega MD, [facility] CPT-4: 70504 03/16/2018 (63021) 70917 EST. PATIENT, LEVEL III Diagnosis: Cough[ICD10: R05] Diagnosis: Pneumonia, unspecified organism[ICD10: J18.9] Reta Ortega MD, [facility] CPT-4: 26341 03/02/2018 85312 EST. PATIENT, LEVEL III Diagnosis: Pain in left finger(s)[ICD10: M79.645] Diagnosis: Pain in left hand[ICD10: M79.642] Anisha Ortega MD, [facility] CPT-4: 03604 01/01/2018 75868 EST. PATIENT, LEVEL III Diagnosis: Other fatigue[ICD10: R53.83] Anisha Ortega MD, [facility] CPT-4: 63129 08/25/2017 OFFICE VISIT, NEW - LEVEL 3 Diagnosis: Other malaise[ICD10: R53.81] Diagnosis: Other fatigue[ICD10: R53.83] Diagnosis: Other hypoglycemia[ICD10: E16.1] Diagnosis: Actinic keratosis[ICD10: L57.0] Diagnosis: Cardiac murmur, unspecified[ICD10: R01.1] Anisha Ortega MD, [facility] CPT-4: 66305 08/04/2017 Plan of Care Planned Activity Notes Codes Status Date Visit Plan: Bronchitis - acute case of bronchitis identified. Pt has been given antibiotics, breathing treatments as appropriate, and pt has been instructed to call if symptoms are not improved, or if symptoms acutely worsen. 06/25/2018 Appointment: Anisha Whitmore WPtel: [address] [place], [place] [phone] (30 min) Complex 06/25/2018 Patient Education: Patient Medication Summary Completed 06/25/2018 Visit Plan: Dental abscess - will start on abx - pt is to follow up with dentist ROMARIO. Pt is to notify clinic if symptoms do not improve, if they worsen, or with any changes, questions, or concerns. 05/07/2018 Appointment: Anisha Whitmore WPtel: [address] [place], [place] [phone] (30 min) Complex 05/07/2018 Patient Education: Patient Medication Summary Completed 05/07/2018 Appointment: Anisha Whitmore WPtel: [address] [place], [place] [phone] (15 min) Moderate 03/23/2018 Visit Plan: Pneumonia [...] illness. 03/16/2018 [facility]ment[facility] [phone] [facility] [place] (15 min) Moderate 03/16/2018 Patient Education: Patient Medication Summary Completed 03/16/2018 Care Plan: CHEST X-RAY 2VW FRONTAL&LATL LOINC : 02216-7 Pending 03/16/2018 Visit Plan: Pneumonia - Pt has been diagnosed with pneumonia by physical exam. A chest xray has been ordered as have antibiotics. The pt is aware of the diagnosis and the need for acute treatment of this illness. 03/02/2018 Appointment: Reta Gonzalez WPtel: [phone] [place] (30 min) Complex 03/02/2018 Patient Education: Patient Medication Summary Completed 03/02/2018 Care Plan: CHEST X-RAY 2VW FRONTAL&LATL LOINC : 78678-8 Pending 03/02/2018 Appointment: Anisha Whitmore WPtel: [phone] [place] (15 min) Moderate 02/19/2018 Visit Plan: Left hand/thumb pain - The pt is to use prn antiinflammatories to manage acute pain. The patient is to call the office if the pain is worsening or does not improve. 01/01/2018 Appointment: Anisha Whitmore WPtel: [facility] [place] (15 min) Moderate 01/01/2018 Patient Education: Patient Medication Summary Completed 01/01/2018 Care Plan: X-RAY EXAM OF HAND LOINC : 41080-8 Pending 01/01/2018 Visit Plan: Fatigue, malaise, joint complaints - improved since finishing doxy - will have pt monitor symptoms and notify clinic if symptoms return, or with any changes, questions, or concerns. 08/25/2017 Appointment: Anisha Whitmoretel: [facility] (15 min) Moderate 08/25/2017 Patient Education: Patient Medication Summary Completed 08/25/2017 Appointment: Anisha Whitmore WPtel: [facility] (30 min) Complex 08/22/2017 Visit Plan: Fatigue, [...] if indicated 08/04/2017 Appointment: Anisha Whitmore WPtel: [address] [place], [place] [phone] New Patient 08/04/2017 Patient Education: Patient Medication Summary Completed 08/04/2017 Appointment: Anisha Whitmore WPtel: [address] [place], [place] [phone] New Patient 07/18/2017 Instructions Comment . Fatigue, [...]
[2018-08-05] MEDS ORDERED: NS IV 1000 ML 1,000 ML ONE (11:58)
[2018-08-05] MEDS ORDERED: LIDOCAINE 1% INJ 20 ML 20 ML VIAL ONE (11:58)
[2018-08-05] MEDS ORDERED: HEParin (CATH LAB) 2,000 ML IV ONE (11:59)
[2018-08-05] MEDS ORDERED: NS IV 1000 ML 1,000 ML IV SCH ×2 (12:00→14:18)
--- OUTSIDE RECORDS SUMMARY | 2018-08-05 12:03 | XMS REPORT | Continuity of Care Document ---
Author Organization Unknown Address Unknown Allergies Active Description Code Type Severity Reaction Onset Reported/Identified Relationship to Patient Clinical Status Yes No Known Drug Allergies [id number] Drug Allergy Unknown N/A 07/08/2018 Medications There is no data. Problems Date Dx Coded Attending Type Code Diagnosis Diagnosed By 03/16/2018 MARY FAIR APRN Ot M79.642 PAIN IN LEFT HAND 03/16/2018 MARY FAIR APRN Ot W19.XXXA UNSPECIFIED FALL, INITIAL ENCOUNTER 03/17/2018 MARY FAIR APRN Ot J98.4 OTHER DISORDERS OF LUNG 03/17/2018 MARY FAIR APRN Ot R05 COUGH 04/07/2018 MARY FAIR APRN Ot J98.4 OTHER DISORDERS OF LUNG 04/07/2018 MARY FAIR APRN Ot R05 COUGH 05/19/2018 MARY FAIR APRN Ot M79.642 PAIN IN LEFT HAND 05/19/2018 MARY FAIR APRN Ot W19.XXXA UNSPECIFIED FALL, INITIAL ENCOUNTER 05/19/2018 MARY FAIR APRN Ot J98.4 OTHER DISORDERS OF LUNG 05/19/2018 MARY FAIR APRN Ot R05 COUGH 05/25/2018 MARY FAIR APRN Ot I34.0 NONRHEUMATIC MITRAL (VALVE) INSUFFICIENC 05/25/2018 MARY FAIR APRN Ot R01.1 CARDIAC MURMUR, UNSPECIFIED 06/12/2018 MARY FAIR APRN Ot I34.0 NONRHEUMATIC MITRAL (VALVE) INSUFFICIENC 06/12/2018 MARY FAIR APRN Ot R01.1 CARDIAC MURMUR, UNSPECIFIED 07/08/2018 TEJINDER EAGLE MD Ot I34.0 NONRHEUMATIC MITRAL (VALVE) INSUFFICIENC 07/08/2018 TEJINDER EAGLE MD Ot I51.7 CARDIOMEGALY 07/08/2018 SHAGUFTA MD, BASHAR J Ot R06.09 OTHER FORMS OF DYSPNEA 07/08/2018 TEJINDER EAGLE MD Ot R06.2 WHEEZING 07/08/2018 TEJINDER EAGLE MD Ot Z79.899 OTHER CHANGE MANAGEMENT EXPERT (CURRENT) DRUG THERAPY 07/08/2018 TEJINDER EAGLE MD Ot Z86.19 PERSONAL HISTORY OF OTHER INFECTIOUS AND 07/08/2018 TEJINDER EAGLE MD Ot Z87.891 PERSONAL HISTORY OF NICOTINE DEPENDENCE 07/10/2018 TEJINDER EAGLE MD Ot I34.0 NONRHEUMATIC MITRAL (VALVE) INSUFFICIENC 07/10/2018 TEJINDER EAGLE MD Ot I51.7 CARDIOMEGALY 07/10/2018 TEJINDER EAGLE MD Ot R06.09 OTHER FORMS OF DYSPNEA 07/14/2018 TEJINDER EAGLE MD Ot I34.0 NONRHEUMATIC MITRAL (VALVE) INSUFFICIENC 07/14/2018 TEJINDER EAGLE MD Ot I51.7 CARDIOMEGALY 07/14/2018 TEJINDER EAGLE MD Ot R06.09 OTHER FORMS OF DYSPNEA 07/14/2018 TEJINDER EAGLE MD Ot R06.2 WHEEZING 07/14/2018 TEJINDER EAGLE MD Ot Z79.899 OTHER PENITENTIARY (CURRENT) DRUG THERAPY 07/14/2018 TEJINDER EAGLE MD Ot Z86.19 PERSONAL HISTORY OF OTHER INFECTIOUS AND 07/14/2018 TEJINDER EAGLE MD Ot Z87.891 PERSONAL HISTORY OF NICOTINE DEPENDENCE 07/16/2018 TEJINDER EAGLE MD Ot I34.0 NONRHEUMATIC MITRAL (VALVE) INSUFFICIENC 07/16/2018 TEJINDER EAGLE MD Ot I51.7 CARDIOMEGALY 07/16/2018 TEJINDER EAGLE MD Ot R06.09 OTHER FORMS OF DYSPNEA 07/16/2018 TEJINDER EAGLE MD Ot R06.2 WHEEZING 07/16/2018 TEJINDER EAGLE MD Ot Z79.899 OTHER CHANGE MANAGEMENT EXPERT (CURRENT) DRUG THERAPY 07/16/2018 TEJINDER EAGLE MD Ot Z86.19 PERSONAL HISTORY OF OTHER INFECTIOUS AND 07/16/2018 TEJINDER EAGLE MD Ot Z87.891 PERSONAL HISTORY OF NICOTINE DEPENDENCE 07/20/2018 MARY FAIR APRN Ot M79.642 PAIN IN LEFT HAND 07/20/2018 MARY FAIR CHAR BELT OPERATOR Ot W19.XXXA UNSPECIFIED FALL, INITIAL ENCOUNTER 07/20/2018 MARY FAIR Rosa JOLLY Ot J98.4 OTHER DISORDERS OF LUNG 07/20/2018 MARV MARY Rosa JOLLY Ot R05 COUGH 07/20/2018 MARV MARY Rosa JOLLY Ot I34.0 NONRHEUMATIC MITRAL (VALVE) INSUFFICIENC 07/20/2018 KRUPA FAIRIE Rosa JOLLY Ot R01.1 CARDIAC MURMUR, UNSPECIFIED 07/20/2018 TEJINDER EAGLE MD, Ot I34.0 NONRHEUMATIC MITRAL (VALVE) INSUFFICIENC 07/20/2018 TEJINDER EAGLE MD, Ot I51.7 CARDIOMEGALY 07/20/2018 TEJINDER EAGLE MD Ot R06.09 OTHER FORMS OF DYSPNEA 07/23/2018 TEJINDER EAGLE MD, Ot I34.0 NONRHEUMATIC MITRAL (VALVE) INSUFFICIENC 07/23/2018 TEJINDER EAGLE MD, Ot R06.09 OTHER FORMS OF DYSPNEA Procedures There is no data. Results Test Result Range Automated blood complete blood count (hemogram) panel - 07/08/18 08:04 Blood leukocytes automated count (number/volume) 9.0 10*3/uL 4.3-11.0 Blood erythrocytes automated count (number/volume) 4.78 10*6/uL 4.35-5.85 Venous blood hemoglobin measurement (mass/volume) 14.9 g/dL 13.3-17.7 Blood hematocrit (volume fraction) 45 % 40-54 Automated erythrocyte mean corpuscular volume 94 [foz_us] 80-99 Automated erythrocyte mean corpuscular hemoglobin (mass per erythrocyte) 31 pg 25-34 Automated erythrocyte mean corpuscular hemoglobin concentration measurement (mass/volume) 33 g/dL 32-36 Automated erythrocyte distribution width ratio 14.2 % 10.0- 14.5 Automated blood platelet count (count/volume) 239 10*3/uL 130-400 Automated blood platelet mean volume measurement 10.3 [foz_us] 7.4-10.4 PT panel in platelet poor plasma by coagulation assay - 07/08/18 08:04 Prothrombin time (PT) in platelet poor plasma by coagulation assay 11.9 s 12.2-14.7 INR in platelet poor plasma or blood by coagulation assay 0.9 0.8-1.4 Activated partial thromboplastin time (aPTT) in platelet poor plasma bycoagulation assay - 07/08/18 08:04 Activated partial thromboplastin time (aPTT) in platelet poor plasma bycoagulation assay 26 s 24-35 Comprehensive metabolic panel - 07/08/18 08:04 Serum or plasma sodium measurement (moles/volume) 139 mmol/L 135-145 Serum or plasma potassium measurement (moles/volume) 4.0 mmol/L 3.6-5.0 Serum or plasma chloride measurement (moles/volume) 101 mmol/L 98-107 Carbon dioxide 29 mmol/L 21-32 Serum or plasma anion gap determination (moles/volume) 9 mmol/L 5-14 Serum or plasma urea nitrogen measurement (mass/volume) 19 mg/dL 7-18 Serum or plasma creatinine measurement (mass/volume) 0.87 mg/dL 0.60-1.30 Serum or plasma urea nitrogen/creatinine mass ratio 22 NRG Serum or plasma creatinine measurement with calculation of estimated glomerular filtration rate > NRG Serum or plasma glucose measurement (mass/volume) 100 mg/dL 70-105 Serum or plasma calcium measurement (mass/volume) 9.5 mg/dL 8.5-10.1 Serum or plasma total bilirubin measurement (mass/volume) 1.0 mg/dL 0.1-1.0 Serum or plasma alkaline phosphatase measurement (enzymatic activity/volume) 56 U/L 40-136 Serum or plasma aspartate aminotransferase measurement (enzymatic activity/volume) 30 U/L 5-34 Serum or plasma alanine aminotransferase measurement (enzymatic activity/volume) 39 U/L 0-55 Serum or plasma protein measurement (mass/volume) 7.1 g/dL 6.4-8.2 Serum or plasma albumin measurement (mass/volume) 4.4 g/dL 3.2-4.5 CALCIUM CORRECTED 9.2 mg/dL 8.5-10.1 Lipid 1996 panel - 07/08/18 08:04 Serum or plasma triglyceride measurement (mass/volume) 76 mg/dL <150 Serum or plasma cholesterol measurement (mass/volume) 234 mg/dL < 200 Serum or plasma cholesterol in HDL measurement (mass/volume) 71 mg/dL 40-60 Cholesterol in LDL [mass/volume] in serum or plasma by direct assay 156 mg/dL 1-129 Serum or plasma cholesterol in VLDL measurement (mass/volume) 15 mg/dL 5-40 Methicillin resistant Staphylococcus aureus (MRSA) screening culture - 07/08/18 08:09 Methicillin resistant Staphylococcus aureus (MRSA) screening culture NEG NRG Encounters ACCT No. Visit Date/Time Discharge Status Pt. Type Provider Facility Loc./Unit Complaint [id number] 07/20/2018 09:08:00 07/20/2018 23:59:59 CLS Outpatient TEJINDER EAGLE MD [facility] RT DYSPNEA ON EXERTION, MR [id number] 07/08/2018 07:34:00 07/13/2018 07:08:00 DIS Outpatient TEJINDER EAGLE MD [facility] SEVERE MITRAL REGURGITATION [id number] 07/08/2018 13:18:00 07/08/2018 23:59:59 CLS Outpatient TEJINDER EAGLE MD [facility] CARD MR,LT ATRIAL DILATATION [id number] 05/22/2018 11:49:00 05/22/2018 23:59:59 CLS Outpatient MARY FAIR APRN [facility] CARD INCREASING HEART MURMUR [id number] 03/16/2018 16:48:00 03/16/2018 23:59:59 CLS Outpatient MARY FAIR APRN [facility] RAD COUGH [id number] 01/01/2018 18:31:00 01/01/2018 23:59:59 CLS Outpatient MARY FAIR APRN [facility] RAD LEFT HAND PAIN [id number] 08/05/2018 14:00:00 PEN Preadmit TEJINDER EAGLE MD [facility] CATH MR,SOB
[2018-08-05] MEDS ORDERED: FLUT1AER IH (12:33)
[2018-08-05 12:36] LABS: HEMOGLOBIN 15.2 G/DL (13.3-17.7); MEAN PLATELET VOLUME 10.6 FL (7.4-10.4); WHITE BLOOD COUNT 7.1 10^3/uL (4.3-11.0)
[2018-08-05 12:37] LABS: BILIRUBIN,URINE NEGATIVE (NEGATIVE); CLARITY,URINE CLEAR; COLOR,URINE YELLOW; GLUCOSE, URINE (UA) NEGATIVE (NEGATIVE); KETONES,URINE NEGATIVE (NEGATIVE); LEUKOCYTE ESTERASE ,URINE NEGATIVE (NEGATIVE); NITRITE,URINE NEGATIVE (NEGATIVE); PH,URINE 8 (5-9); PROTEIN,URINE NEGATIVE (NEGATIVE); UROBILINOGEN,URINE NORMAL (NORMAL)
--- NOTE | 2018-08-05 12:39 | Diagnostic Imaging Report ---
INDICATION: Dyspnea and mitral regurgitation. Upright portable AP view of the chest is obtained with comparison made to study of 07/08/2018. FINDINGS: There is mild generalized cardiomegaly. There has been mild worsening of pulmonary venous congestion. No overt edema is identified. There is no evidence of pneumothorax or significant pleural fluid. IMPRESSION: Stable cardiomegaly and mild worsening of pulmonary venous congestion. Dictated by: Dictated on workstation # [id number]
[2018-08-05 12:48] LABS: INR 0.9 (0.8-1.4); PROTHROMBIN TIME PATIENT 12.8 SEC (12.2-14.7)
[2018-08-05 12:49] LABS: BACTERIA,URINE TRACE /HPF; WBC,URINE RARE /HPF
[2018-08-05 12:51] LABS: ALANINE AMINOTRANSFERASE 30 U/L (0-55); ALBUMIN 4.3 GM/DL (3.2-4.5); ALKALINE PHOSPHATASE 66 U/L (40-136); BILIRUBIN,TOTAL 0.7 MG/DL (0.1-1.0); BUN/CREATININE RATIO 16; CALCIUM 9.3 MG/DL (8.5-10.1); CARBON DIOXIDE 29 MMOL/L (21-32); CHLORIDE 102 MMOL/L (98-107); GFR ESTIMATED > 60; GLUCOSE 102 MG/DL (70-105); POTASSIUM 4.3 MMOL/L (3.6-5.0); SODIUM 138 MMOL/L (135-145)
[2018-08-05] MEDS ORDERED: MIDAZOLAM 5 MG/5 ML (VERSED) VIAL ONE (13:01)
[2018-08-05] MEDS ORDERED: fentaNYL INJECTION 100 MCG/2 ML AMP ONE (13:02)
--- NOTE | 2018-08-05 14:26 | Discharge Inst-Post CATH ---
Discharge Inst-CATH/EP Post Cardiac Cath/EP D/C Inst Follow Up/Plan Appointment with Dr. Morton's office in 4 weeks <b>CARDIAC CATH/EP PROCEDURE DISCHARGE INSTRUCTIONS</b> Cardiac Rehab Please be expecting a follow up call from Cardiac Rehab within in one week. ACTIVITY * Go Home directly and rest. * Limit activity of the leg (or wrist if it was used) for 7 days including aerobics, swimming, jogging, bicycling, etc. * Restrict stair-climbing for 7 days if possible, if not, climb up with your non-cath leg, then bring together on the same step. * Avoid lifting, pushing, pulling or excessive movement of the affected extremity for 7 days. * Customary sexual activity may be resumed after 2 days-use caution not to use a position that strains or causes pain to the affected extremity. * No driving for 24 hours. * NO SMOKING. * Avoid straining for bowel movements for 7 days. * Gentle walking on level ground is allowed. * Returning to work will depend on the type of procedure and the results. Your doctor will discuss this with you. CALL YOUR DOCTOR FOR ANY OF THE FOLLOWING: *If bleeding from the puncture site occurs- Apply gentle pressure to site with clean cloth and call your doctor or EMS. * If a knot or lump forms under the skin, increases in size, or causes pain. * If bruising appears to be worsening or moving further down your leg instead of disappearing. * Temperature above 101 F. CARE OF YOUR GROIN INCISION; * Bruising or purple discoloration of the skin near the puncture site is common. * You may shower only, no bathtub bathing for 5 days. Be careful to avoid slipping as your leg may feel stiff. * If a closure device was used on your femoral artery, please see the attached guide regarding care of the device and your leg. * Leave dressing on FOR 24 hours. CARE OF YOUR WRIST INCISION; * Bruising or purple discoloration of the skin near the puncture site is common. * You may shower. * DO NOT submerge wrist. * Leave dressing on FOR 24 hours. TEJINDER MORTON MD Aug 05, 2018 14:26
[2018-08-05] MEDS ORDERED: PATIENT MAY USE OWN MEDS, ALL PO SCH (14:30)
--- NOTE | 2018-08-05 14:34 | Cardiac Cath Report ---
Cardiac Cath Report Physician (s)/Inker Machine (s) Physician TEJINDER EAGLE MD Pre-Procedure Diagnosis Pre-Procedure Diagnosis: severe mitral regurgitation Post-Procedure Note Procedure Start Date: Aug 05, 2018 Name of Procedure: right and left heart catheterization Left ventriculogram Aortic arch angiogram Findings/Procedure Note PROCEDURE NOTE: 58 years old gentleman with severe mitral regurgitation, referred for cardiothoracic surgery evaluation, patient was sent back for cardiac catheterization prior to proceeding with surgical repair of the valve. After explaining the procedure to the patient, all pros and cons were explained, all questions were answered. The patient signed the consent and then he was placed on the cardiac catheterization laboratory. Groin was prepped SL fashion local anesthesia was used. Sheath placed in the right femoral vein, balloon tipped Hanna-Le catheter advanced to the right atrium, right ventricle, main pulmonary artery then to the wedge, cardiac output and pressure was measured, oxygen saturation was evaluated. 6 Telugu sheath was placed in the right femoral artery. Brittany right and left catheter were used to access the coronary system. Pigtail was used to access the left ventricular cavity. Left ventriculogram was done Aortic arch angiogram was done At the end of the procedure the sheath was removed. Closure device was used FINDINGS: Hemodynamics LV 117/27, end-diastolic pressure of 27 Aorta 122/70 mean of 77 PA 46/5, mean of 25 Pulmonary capillary wedge pressure 31 RV 46 over 3, end-diastolic pressure of 8 RA 10 Oxygen saturation FA 97.2 RV 77.2 RA 75.9 PA 75.4 Cardiac output by Cydney 5.30, cardiac index by Cydney 2.78 Cardiac output by thermodilution 5.37, cardiac index by thermodilution 2.81 ANATOMY: Left Main is free of obstructive disease Left Anterior Descending is free of obstructive disease Left Circumflex has no significant obstructive disease Right Coronory Artery has no significant obstructive disease LV Gram is normal in size, systolic function is preserved and estimated ejection fraction 50 percent, +2-3 MR Aorta evaluation done with aortic arch angiogram showing normal aortic arch, no dissection or aneurysm, no dilatation, normal origin of the innominate artery, left carotid artery and left subclavian artery CONCLUSION: 1. Mild coronary artery disease nonobstructive disease 2. Normal left ventricular size, estimated ejection fraction 50 percent 3. Moderate to severe mitral regurgitation 4. Normal aortic arch and great vessels of the neck DISCUSSION AND RECOMMENDATION: patient is referred for evaluation for mitral valve replacement. Anesthesia Type: Conscious Sedation Estimated blood loss (mL): 25 ml Contrast Amount: 67 ml Total Radiation Dose: 379 mGy Post-Procedure Diagnosis Post-operative diagnosis: Severe mitral regurgitation Coronary artery disease Pulmonary hypertension TEJINDER EAGLE MD Aug 05, 2018 14:34
== END 2018-08-05 19:05 | disposition home or self-care (01) ==
LOC: CATH 11:47 → SDC 14:40 → CATH 19:05
PROVIDERS: ATTEND Internal Medicine Cardiovascular Disease
DX: I34.0 Nonrheumatic mitral (valve) insufficiency (principal); I25.10 Atherosclerotic heart disease of native coronary artery without angina pectoris; I27.20 Pulmonary hypertension, unspecified; R06.2 Wheezing; R06.09 Other forms of dyspnea; I51.7 Cardiomegaly; Z87.01 Personal history of pneumonia (recurrent); Z79.899 Other long term (current) drug therapy; Z87.891 Personal history of nicotine dependence; Z86.19 Personal history of other infectious and parasitic diseases; Z11.2 Encounter for screening for other bacterial diseases
CPT/HCPCS: 36221; 36415; 71045; 80053; 81000; 85027; 85610; 85730; 87081; 93460

== ENCOUNTER → 2019-11-24 | Outpatient (CLI) | payer BC ==
[~2019-11-24] MED LIST changes: +FLUT1AER IH
--- NOTE | 2019-11-24 17:07 | Diagnostic Imaging Report ---
EXAMINATION: Right foot radiographs, 3 views. COMPARISON: None. HISTORY: 1-year-old male, right foot pain. FINDINGS: There is a bipartite lateral sesamoid. There is a small calcaneal heel spur and mild degenerative type enthesopathy at the Achilles tendon insertion. There is no identified acute fracture. There is no identified radiopaque foreign body. The joint spaces are well preserved. IMPRESSION: No identified acute bony abnormality of the right foot. Dictated by: Dictated on workstation # [id number]
== END ==
LOC: RAD 16:26
PROVIDERS: ATTEND Nurse Practitioner Family
DX: M79.671 Pain in right foot (principal)
CPT/HCPCS: 73630